=== PATIENT | female | born 1930 | race Caucasian/White ===

== ENCOUNTER 2017-12-04 00:16 | Inpatient (IN) | payer MEDICARE, OTHER ==
[~2017-12-04] VITALS: Ht 167.6 cm; Wt 79.0 kg
[2017-12-04] MEDS ORDERED: FLUT9.9S16 NS (00:45)
[2017-12-04] MEDS ORDERED: DULO60CA6 PO (00:45)
[2017-12-04] MEDS ORDERED: CHOL10003 PO (00:45)
[2017-12-04] MEDS ORDERED: ACET325T21 PO (00:45)
[2017-12-04] MEDS ORDERED: METF500T5 PO (00:45)
[2017-12-04] MEDS ORDERED: LISI-376 PO (00:45)
[2017-12-04] MEDS ORDERED: FAMO-63 PO (00:45)
[2017-12-04] MEDS ORDERED: DOCU250C8 PO (00:45)
[2017-12-04] MEDS ORDERED: CLOP75TA PO (00:45)
[2017-12-04] MEDS ORDERED: NEBI5TAB2 PO (00:45)
[2017-12-04] MEDS ORDERED: LIDO700A39 TP (00:45)
[2017-12-04] MEDS ORDERED: MULT1TAB52 PO (00:45)
[2017-12-04] MEDS ORDERED: CYAN10005 PO (00:45)
[2017-12-04] MEDS ORDERED: HYDR-971 PO (00:45)
[2017-12-04] MEDS ORDERED: INSU100I11 SQ (00:45)
[2017-12-04] MEDS ORDERED: PANT40TA5 PO (00:45)
[2017-12-04] MEDS ORDERED: PROP15DR40 EACHEYE (00:45)
[2017-12-04] MEDS ORDERED: MAGN2400 PO (00:45)
[2017-12-04] MEDS ORDERED: INSU100I13 SQ (00:45)
[2017-12-04] MEDS ORDERED: FAMO1TAB3 PO (00:45)
[2017-12-04] MEDS ORDERED: ATOR10TA PO (00:45)
[2017-12-04] MEDS ORDERED: FURO20TA3 PO (00:45)
[2017-12-04] MEDS ORDERED: MAG HYDROX/AL HYDROX/SIMETH 30 ML ORAL.SUSP PO PRN (02:45)
[2017-12-04] MEDS ORDERED: METHYL SALICYLATE/MENTHOL TOPICAL OINTMENT 29GM TUBE. TP PRN (02:45)
[2017-12-04] MEDS ORDERED: DEXTROSE 50% 25 GM / 50ML DISP.SYRIN. IV PRN (02:45)
[2017-12-04] MEDS ORDERED: MAGNESIUM HYDROXIDE 2,400 MG/30 ML ORAL.SUSP. PO PRN (02:45)
--- NOTE | 2017-12-04 02:59 | EKG ---
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
[2017-12-04] MEDS ORDERED: POLYVINYL ALCOHOL 1.4% OPHTH SOLUTION 15ML BOTTLE. OU PRN (03:00)
[2017-12-04] MEDS ORDERED: DOCUSATE SODIUM 100 MG CAPSULE PO PRN (03:00)
[2017-12-04 03:12] VITALS: BP 107/50
--- NOTE | 2017-12-04 03:32 | NUR ---
Admission Note with Justification for Admission to [facility] Patient admitted to [facility] for protective oversight for emergency stabilization of acute psychiatric crisis. Pt admitted from: [facility] ER Mode of arrival: EMS Accompanied By: EMS Precipitating behaviors that initiated intake and admission: Increased agitation/aggression, combative with staff at [facility] including hitting employee and throwing remotes at people, putting self on floor. Description of failure of out patient attempts at stabilization in previous setting list behavior and medication trials: Redirection, medication changes. Behaviors and assessment findings upon admission: Pt alert, oriented to self but not , current month but not year. Pt pleasantly confused, delusional- believes she arrived on the train. Pt has hematoma to scalp with 3 patrick intact from fall on 11/30, skin tear to Lt elbow- photographed per [facility]ISS protocol, multiple bruises noted. Physical assessment as charted. Pt toileted, gown and brief changed. Pt oriented to room/unit, bed low and locked, yellow non-slip socks on. Plan: Admit for protective oversight for adjustment and stabilization of medications, behaviors and mood. Intense treatment regimen including groups, medication adjustments, therapy, consistent regimen for ADL's, self care, and sleep hygiene. Daily monitoring by Inpatient staff, Psychiatry, and Medical Physician.
[2017-12-04 03:33] LABS: BILIRUBIN,URINE NEG (NEG); CLARITY,URINE CLEAR; COLOR,URINE STRAW; GLUCOSE,URINE 250 mg/dL (NEG)
[2017-12-04 03:34] LABS: BACTERIA,URINE FEW /HPF (0-FEW); NITRITE,URINE NEG (NEG); RBC,URINE 0 /HPF (0-2); SQUAMOUS EPITHELIAL CELL,UR MOD /LPF; UROBILINOGEN,URINE 0.2 mg/dL (0.2 mg/dL)
[2017-12-04 06:22] VITALS: BP 155/64
[2017-12-04 06:52] LABS: BASO # 0.1 x10^3/uL (0.0-0.2); BASO % 1 % (0-3); EOS % 0 % (0-3); HEMATOCRIT 34.1 % (36.0-47.0); HEMOGLOBIN 11.5 g/dL (12.0-15.5); LYMPH # 1.7 x10^3/uL (1.0-4.8); LYMPH % 17 % (24-48); MEAN CORPUSCULAR HEMOGLOBIN 33 pg (25-35); MEAN CORPUSCULAR HGB CONC 34 g/dL (31-37); MEAN CORPUSCULAR VOLUME 98 fL (79-100); MONO # 0.6 x10^3/uL (0.0-1.1); MONO % 7 % (0-9); NEUT # 7.4 x10^3uL (1.8-7.7); NEUT % 76 % (31-73); PLATELET COUNT 182 x10^3/uL (140-400); RED BLOOD COUNT 3.49 x10^6/uL (3.50-5.40); RED CELL DISTRIBUTION WIDTH 13.9 % (11.5-14.5); WHITE BLOOD COUNT 9.9 x10^3/uL (4.0-11.0)
[2017-12-04 07:03] LABS: ALBUMIN 2.4 g/dL (3.4-5.0); ALBUMIN/GLOBULIN RATIO 0.7 (1.0-1.7); CALCIUM 8.8 mg/dL (8.5-10.1); CREATININE 1.2 mg/dL (0.6-1.0); GFR 42.7; MAGNESIUM 1.5 mg/dL (1.8-2.4); POTASSIUM 4.3 mmol/L (3.5-5.1); TOTAL BILIRUBIN 0.3 mg/dL (0.2-1.0); TOTAL PROTEIN 5.8 g/dL (6.4-8.2)
--- NOTE | 2017-12-04 07:25 | NUR ---
ANTENNA RIGGER reported she offered pt a WC prior to breakfast bc pt stated "I am very unsteady and I am a fall risk. ANTENNA RIGGER offered pt an empty WC that was in the day room, pt stated "I'm not sitting in that thing." Staff walked with pt to dining room for breakfast.
[2017-12-04] MEDS ORDERED: FAMOTIDINE PO SCH (09:00)
[2017-12-04] MEDS ORDERED: LIDOCAINE (700MG/PATCH) PATCH. TD PRN (09:00)
[2017-12-04] MEDS ORDERED: MAGNESIUM HYDROXIDE PO SCH (09:00)
[2017-12-04] MEDS ORDERED: NEBIVOLOL HCL 5 MG PO SCH (09:00)
[2017-12-04] MEDS: METOPROLOL TART IMMED RELEASE 50 MG TABLET PO SCH ×2 (09:00→19:57)
[2017-12-04] MEDS ORDERED: [UNRECOGNIZED DRUG - OTHER] PO SCH (09:00)
[2017-12-04] MEDS ORDERED: CALCIUM CARBONATE PO SCH (09:00)
[2017-12-04] MEDS: INSULIN LISPRO 300 UNITS/3 ML INSULN.PEN. SQ SCH ×3 (09:24→17:30)
[2017-12-04] MEDS: metFORMIN 500 MG TABLET PO SCH ×2 (09:24→17:29)
[2017-12-04] MEDS: PANTOPRAZOLE 40 MG TABLET. PO SCH (09:24)
[2017-12-04] MEDS: FLUTICASONE 50MCG/NASAL SPRAY 16GM BOTTLE. NS SCH (09:26)
[2017-12-04] MEDS: DULoxetine HCL 60 MG CAPSULE.DR PO SCH (09:26)
[2017-12-04] MEDS: FAMOTIDINE 20 MG TABLET PO SCH (09:27)
[2017-12-04] MEDS: CLOPIDOGREL BISULFATE 75 MG TABLET PO SCH (09:27)
[2017-12-04] MEDS: FUROSEMIDE 20 MG TABLET PO SCH (09:27)
[2017-12-04] MEDS: CYANOCOBALAMIN (VITAMIN B-12) 1,000 MCG TABLET. PO SCH (09:28)
[2017-12-04] MEDS: LISINOPRIL 5 MG TABLET. PO SCH (09:28)
[2017-12-04] MEDS: CHOLECALCIFEROL (VITAMIN D3) 1,000 UNIT TABLET PO SCH (09:28)
[2017-12-04] MEDS: MULTIVITAMIN with MINERAL TABLET. PO SCH (09:28)
--- NOTE | 2017-12-04 11:17 | NUR ---
Behavior Intervention Response and Plan: BIRP Note: Behavior: Assumed Care of patient, patient located in Patient Room at shift change. Patient exhibited the following behavior Interactive, Calm, Cooperative. Brief assessment on rounds of vital signs, medication needs, lab studies, and pain. Treatment plan problems . Intervention: Patient assessed and the following interventions initiated safety checks 15 Minute Checks Cognitive Assessment , Head to toe Assessment , Medications. Response: After interactions and interventions patient responded in the following manner, Cooperative , Calm ,Social. Continue to assess behaviors and condition will continue to monitor throughout the shift as needed. Patient educated on ADL's, and hand hygiene. 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 Continue to assess patient for changes in above assessment. Monitor for medication needs, pain, and safety concerns. Hourly rounding performed to ensure safe environment.
[2017-12-04 11:19] LABS: THYROID STIM HORMONE (TSH) 1.461 uIU/mL (0.358-3.740)
--- NOTE | 2017-12-04 11:58 | NUR ---
SCRAPER HAND reported FSBS of 491. Dr. Granados paged with new order to give pt additional 9 units of insulin for a total of 14 units of insulin.
--- NOTE | 2017-12-04 12:05 | NUR ---
CRITICAL POWER TECHNICIAN reported pt fell and hit her head. Pt asked where the dining room was and CRITICAL POWER TECHNICIAN directed pt to the dining room. CRITICAL POWER TECHNICIAN watched pt turn to go to the dining room. CRITICAL POWER TECHNICIAN reported it appeared the pt was turning to go to the dining room and lost her balance and fell backward and hit her head on the corner of the wall. Staff called out for help. When nurse arrived nurse observed pt laying on the ground on her back calling out for help. When nurse assessed pt for injuries, Nurse observed a hematoma and blood coming from the back of the pts head. First aide given to the pt. VS: 150/91, 85, 100%, 20. Nursing garage supervisor called. During this time pt became combative with staff hitting, slapping and yelling out "ahhhhhhh! Help me!" "get away from me!" Pt was assisted to a chair and taken to the group room where pt continued to be combative-hitting, slapping, and screaming "ahhhhhh!" Laceration assessed and it was determined that pt would need to be seen in the ER. Pts daughter in law was here to visit and let onto the unit to help calm pt down which was successful. Dr. Granados, [facility] ER, Dr. Potts, and EMS called. When transferring on to EMS cot pt was delusional stating "they all hit me!" Pts daughter in law reassured pt that no one was trying to hurt her." Pt taken to [facility] ER via [facility] EMS accompanied by nursing garage supervisor and daughter in law.
[2017-12-04 12:07] LABS: T3 TOTAL 76 ng/dL (71-180); THYROXINE 5.9 ug/dL (4.5-12.0)
[2017-12-04] MEDS ORDERED: INSULIN LISPRO 300 UNITS/3 ML INSULN.PEN. SQ ONE (12:15)
--- NOTE | 2017-12-04 15:20 | NUR ---
Report received from Melissa. Pt returned from ER VIA EMS cart accompanied by EMS staff and ER medic. Pt is calm, cooperative, confused, and compliant at this time. Pt placed in bed with bed alarm. Pt moved from room 205 to room 212 for safety.
[2017-12-04 16:29] VITALS: BP 148/68
--- NOTE | 2017-12-04 19:45 | HP ---
ADMIT DATE: 12/04/2017 PSYCHIATRIC ADMISSION HISTORY/EVALUATION This note covers the elements not covered in my initial note of 12/04/2017. IDENTIFYING DATA: The patient is an 87-year-old female referred to us from [facility] Emergency Room where she presented from the [facility] in [place] on account of increased combative behavior, possible hallucinations and she was seeing her . She has been paranoid of staff having a relationship with her and believed the staff are out to get her. She has failed outpatient psychiatric interventions. The patient has had a significant change in her psychosocial environment. All her children have except one and she moved here from [place] after her 2 months ago. CHIEF COMPLAINT: "I don't know." The patient responded after I asked her circumstances prompting admission. HISTORY OF PRESENT ILLNESS: The patient has been increasingly depressed recently. She has been paranoid, psychotic as noted above. Symptoms worsening for the past 2 weeks. She had been on Xanax p.r.n. in the past and has had a fall and a head injury with patrick to the right side of her head. The patient also has had memory deficits, worsening confusion. No clear history of bipolar disorder or homicidal ideation. PAST PSYCHIATRIC HISTORY: As above. PAST MEDICAL HISTORY: Type 2 diabetes mellitus, non-Hodgkin's lymphoma, hypertension, status post CVA. PAST SURGICAL HISTORY: Tubal hysterectomy, total knee replacement. Accu-Cheks: At meals and at bedtime. CODE STATUS: DNR. DRUG ALLERGIES: PENICILLIN, AMOXIL, AUGMENTIN, INDERAL LA, COCONUT OIL, CONTRAST MEDIA, IODINE RELATED. DIET: Regular. Takes medications whole. CURRENT PSYCHOTROPICS: Cymbalta 60 mg a day. FAMILY HISTORY: Noncontributory. SOCIAL HISTORY: As noted above and she was moved to this area by her family from [place] about 2 months ago. No alcohol or drug abuse, physical, sexual or elder abuse history is noted. Not known to be a perpetrator. REACTION TO HOSPITALIZATION: The patient accepting of it, somewhat oblivious however. ASSETS: Supportive family, stable living back at the [facility]. MENTAL STATUS EXAM: The patient was seen individually evening of 12/04/2017. She is depressed, anxious, oriented to herself and at times to situation. Speech has some latency. Abstraction fair, computation impaired, language function intact. Memory is impaired. No active suicidal or homicidal ideation, but reliability poor due to her memory deficits. IMPRESSION: Major depressive disorder with psychotic features; major neurocognitive disorder, probably vascular with delusion, depression; anxiety disorder, unspecified; impulse control disorder, unspecified. Rest as above. PLAN: Admit to geropsychiatry unit at [facility]. I will see the patient daily individually from a psychiatric standpoint. Continue current psychotropics, reassess psychotropics gradually, especially given a history of falls. Since being in the hospital, the patient has had yet another fall when she turned around and got her legs crossed according to the camera feed observed by the nursing staff. She was evaluated for this in the ER. We will make further adjustments as clinically indicated. DANE CHERRY MD DR: WILLIAM/erica JOB#: [id number] / [id number]
[2017-12-04] MEDS: ATORVASTATIN CALCIUM 10 MG TABLET. PO SCH (19:58)
[2017-12-04] MEDS: ACETAMINOPHEN 325 MG TABLET PO PRN (20:04)
[2017-12-04] MEDS ORDERED: INSULIN GLARGINE 300 UNITS/3 ML INSULN.PEN. SQ SCH (21:00)
[2017-12-04 23:09] LABS: HEMOGLOBIN A1C 8.9 % (4.8-5.6)
--- NOTE | 2017-12-04 23:24 | PDOC ---
Exam Note: Zaid Note: Please also refer to the separate dictated note~for this date of service dictated separately.~Patient seen individually. Discussed the patient with Nursing staff reviewed the chart.~Reviewed interim history and current functioning. Reviewed vital signs,~Labs/ Radiology~and current medications noted below. Continue current treatment with the changes noted in the dictated addendum note Assessment: Vital Signs: Vital Signs Date Time Temp Pulse Resp B/P (MAP) Pulse Ox O2 Delivery O2 Flow Rate FiO2 12/04/17 19:57 90 148/68 12/04/17 16:29 98.4 16 97 12/04/17 03:12 Room Air I&O Intake and Output 12/04/17 07:00 Output Total 200 ml Balance -200 ml Output Urine Total 200 ml Labs: Laboratory Tests Test 12/04/17 02:50 12/04/17 06:25 12/04/17 07:59 12/04/17 11:50 Urine Collection Type Unknown Urine Color Straw Urine Clarity Clear Urine pH 6.5 Urine Specific [place] 1.010 Urine Protein 30 mg/dl (NEG-TRACE) Urine Glucose (UA) 250 mg/dL (NEG) Urine Ketones (Stick) Neg mg/dL (NEG) Urine Blood Neg (NEG) Urine Nitrite Neg (NEG) Urine Bilirubin Neg (NEG) Urine Urobilinogen Dipstick 0.2 mg/dL (0.2 mg/dL) Urine Leukocyte Esterase Neg (NEG) Urine RBC 0 /HPF (0-2) Urine WBC 1-4 /HPF (0-4) Urine Squamous Epithelial Cells Mod /LPF Urine Bacteria Few /HPF (0-FEW) White Blood Count 9.9 x10^3/uL (4.0-11.0) Red Blood Count 3.49 x10^6/uL (3.50-5.40) L Hemoglobin 11.5 g/dL (12.0-15.5) L Hematocrit 34.1 % (36.0-47.0) L Mean Corpuscular Volume 98 fL (79-100) Mean Corpuscular Hemoglobin 33 pg (25-35) Mean Corpuscular Hemoglobin Concent 34 g/dL (31-37) Red Cell Distribution Width 13.9 % (11.5-14.5) Platelet Count 182 x10^3/uL (140-400) Neutrophils (%) (Auto) 76 % (31-73) H Lymphocytes (%) (Auto) 17 % (24-48) L Monocytes (%) (Auto) 7 % (0-9) Eosinophils (%) (Auto) 0 % (0-3) Basophils (%) (Auto) 1 % (0-3) Neutrophils # (Auto) 7.4 x10^3uL (1.8-7.7) Lymphocytes # (Auto) 1.7 x10^3/uL (1.0-4.8) Monocytes # (Auto) 0.6 x10^3/uL (0.0-1.1) Eosinophils # (Auto) 0.0 x10^3/uL (0.0-0.7) Basophils # (Auto) 0.1 x10^3/uL (0.0-0.2) Sodium Level 141 mmol/L (136-145) Potassium Level 4.3 mmol/L (3.5-5.1) Chloride Level 104 mmol/L (98-107) Carbon Dioxide Level 31 mmol/L (21-32) Anion Gap 6 (6-14) Blood Urea Nitrogen 21 mg/dL (7-20) H Creatinine 1.2 mg/dL (0.6-1.0) H Estimated GFR (Cockcroft-Gault) 42.7 BUN/Creatinine Ratio 18 (6-20) Glucose Level 280 mg/dL (70-99) H Hemoglobin A1c 8.9 % (4.8-5.6) H Calcium Level 8.8 mg/dL (8.5-10.1) Magnesium Level 1.5 mg/dL (1.8-2.4) L Iron Level 26 ug/dL (50-170) L Total Iron Binding Capacity 208 ug/dL (250-450) L Iron Saturation 13 % (15-34) L Total Bilirubin 0.3 mg/dL (0.2-1.0) Aspartate Amino Transferase (AST) 16 U/L (15-37) Alanine Aminotransferase (ALT) 14 U/L (14-59) Alkaline Phosphatase 76 U/L (46-116) Total Protein 5.8 g/dL (6.4-8.2) L Albumin 2.4 g/dL (3.4-5.0) L Albumin/Globulin Ratio 0.7 (1.0-1.7) L Triglycerides Level 127 mg/dL (0-150) Cholesterol Level 149 mg/dL (0-200) LDL Cholesterol, Calculated 69 mg/dL (0-100) VLDL Cholesterol, Calculated 25 mg/dL (0-40) Non-HDL Cholesterol Calculated 94 mg/dL (0-129) HDL Cholesterol 55 mg/dL (40-60) Cholesterol/HDL Ratio 2.0 Thyroid Stimulating Hormone (TSH) 1.461 uIU/mL (0.358-3.740) Thyroxine (T4) 5.9 ug/dL (4.5-12.0) Total Triiodothyronine (TT3) 76 ng/dL (71-180) Rapid Plasma Reagin Pending Glucose (Fingerstick) 303 mg/dL (70-99) H 491 mg/dL (70-99) H Test 12/04/17 16:56 12/04/17 19:07 Glucose (Fingerstick) 208 mg/dL (70-99) H 272 mg/dL (70-99) H Current Medications: Meds: Current Medications Acetaminophen (Tylenol) 650 mg PRN Q6HRS PRN PO MILD PAIN / TEMP Last administered on 12/04/17at 20:04; Start 12/04/17 at 02:45 Multi-Ingredient Ointment (Analgesic [place]) 1 paige PRN QID PRN TP MUSCLE PAIN; Start 12/04/17 at 02:45 Al Hydroxide/Mg Hydroxide (Mylanta Plus Xs) 15 ml PRN AFTMEALHC PRN PO DYSPEPSIA; Start 12/04/17 at 02:45 Magnesium Hydroxide (Milk Of Magnesia) 2,400 mg PRN QHS PRN PO CONSTIPATION; Start 12/04/17 at 02:45 Duloxetine HCl (Cymbalta) 60 mg DAILY PO Last administered on 12/04/17at 09:26; Start 12/04/17 at 09:00 Dextrose 12.5 gm PRN Q15MIN PRN IV SEE COMMENTS; Start 12/04/17 at 02:45 Vitamin D (Vitamin D3) 1,000 unit DAILY PO Last administered on 12/04/17at 09:28 ; Start 12/04/17 at 09:00 Clopidogrel Bisulfate (Plavix) 75 mg DAILY PO Last administered on 12/04/17at 09 :27; Start 12/04/17 at 09:00 Cyanocobalamin (Vitamin B-12) 1,000 mcg DAILY PO Last administered on 09:28; Start 12/04/17 at 09:00 Furosemide (Lasix) 10 mg DAILY PO Last administered on 12/04/17 09:27; Start 12/04/17 at 09:00 Insulin Glargine (Lantus) 10 units QHS SQ Last administered on 12/04/17 20:00 ; Start 12/04/17 at 21:00 Insulin Human Lispro (HumaLOG) 5 units TIDWMEALS SQ Last administered on 17:30; Start 12/04/17 at 08:00 Lisinopril (Prinivil) 5 mg DAILY PO Last administered on 12/04/17 09:28; Start 12/04/17 at 09:00 Atorvastatin Calcium (Lipitor) 10 mg QHS PO Last administered on 12/04/17at 19: 58; Start 12/04/17 at 21:00 Docusate Sodium (Colace) 100 mg PRN DAILY PRN PO CONSTIPATION; Start 12/04/17 at 03:00 Famotidine (Pepcid) 20 mg DAILY PO Last administered on 12/04/17 09:27; Start 12/04/17 at 09:00 Non-Formulary Medication (Famotidine/Ca Carb/Mag Hydrox (Tums Dual Action Tablet Chew)) 1,000 mg DAILY PO ; Start 12/04/17 at 09:00; Status UNV Fluticasone Propionate (Flonase) 2 spray DAILY NS Last administered on at 09:26; Start 12/04/17 at 09:00 Acetaminophen/ Hydrocodone Bitart (Lortab 5/325) 1 tab PRN Q6HRS PRN PO PAIN; Start 12/04/17 at 03:00 Lidocaine (Lidoderm) 1 patch PRN DAILY PRN TD PAIN; Start 12/04/17 at 09:00 Metformin HCl (Glucophage) 500 mg BIDWMEALS PO Last administered on 12/04/17at 17:29; Start 12/04/17 at 08:00 Multivitamins/ Calcium (Thera-M Plus) 1 tab DAILY PO Last administered on at 09:28; Start 12/04/17 at 09:00 Non-Formulary Medication (Nebivolol Hcl (Bystolic)) 5 mg BID PO ; Start at 09:00; Stop 12/04/17 at 09:00; Status DC Pantoprazole Sodium (Protonix) 40 mg DAILYAC PO Last administered on 12/04/17at 09:24; Start 12/04/17 at 07:30 Artificial Tears (Artificial Tears) 1 drop PRN QID PRN OU DRY EYE; Start at 03:00 Metoprolol Tartrate (Lopressor) 50 mg BID PO Last administered on 12/04/17at 19: 57; Start 12/04/17 at 09:00 Insulin Human Lispro (HumaLOG) 9 units 1X ONCE SQ Last administered on at 12:24; Start 12/04/17 at 12:15; Stop 12/04/17 at 12:16; Status DC Active Scripts Active Reported Vitamin D3 (Cholecalciferol (Vitamin D3)) 1,000 Unit Tablet 1,000 Unit PO DAILY Clopidogrel (Clopidogrel Bisulfate) 75 Mg Tablet 75 Mg PO DAILY Flonase Sensimist (Fluticasone Furoate) 9.9 Ml [place].susp 2 Sprays NS DAILY Docusate Sodium 250 Mg Capsule 250 Mg PO PRN DAILY PRN Tums Dual Action Tablet Chew (Famotidine/Ca Carb/Mag Hydrox) 1 Each Tab.chew 1, 000 Mg PO DAILY Vitamin B-12 (Cyanocobalamin (Vitamin B-12)) 1,000 Mcg Tablet 1,000 Mcg PO DAILY Multivitamins (Multivitamin) 1 Each Tablet 1 Tab PO DAILY Furosemide 20 Mg Tablet 10 Mg PO DAILY Bystolic (Nebivolol Hcl) 5 Mg Tablet 5 Mg PO BID Zestril (Lisinopril) 5 Mg Tablet 5 Mg PO DAILY Acetaminophen 325 Mg Tablet 650 Mg PO PRN Q8HRS PRN Lidocaine 1 Each Adh..patch 1 Patch TP PRN DAILY PRN [place] 5-325 Tablet (Hydrocodone Bit/Acetaminophen) 1 Each Tablet 1 Tab PO PRN Q6HRS PRN Lipitor (Atorvastatin Calcium) 10 Mg Tablet 10 Mg PO QHS Lantus Solostar (Insulin Glargine,Hum.rec.anlog) 100 Unit/1 Ml Insuln.pen 10 Unit SQ QHS Pepcid (Famotidine) 20 Mg Tablet 20 Mg PO DAILY Pantoprazole Sodium 40 Mg Tablet.dr 40 Mg PO DAILY Milk Of Magnesia (Magnesium Hydroxide) 2,400 Mg/10 Ml Oral.susp 10 Ml PO PRN DAILY PRN Systane 0.3-0.4% Eye Drops (Propylene Glycol/Peg 400) 15 Ml Drops 1 Drop EACHEYE QID PRN Metformin Hcl 500 Mg Tablet 500 Mg PO BIDWMEALS Cymbalta (Duloxetine Hcl) 60 Mg Capsule.dr 60 Mg PO DAILY Humalog (Insulin Lispro) 100 Unit/1 Ml Insuln.pen 5 Unit SQ TIDWMEALS I have reviewed the current psychotropics carefully including drug interactions. Risk benefit ratio favors no change other than as noted in my dictated progress note. Diagnosis: Problems: (1) Anxiety disorder (2) Dementia in Alzheimer's disease with delusions (3) Dementia in Alzheimer's disease with depression (4) Dementia, vascular, with delusions (5) Dementia, vascular, with depression (6) Impulse control disorder DANE CHERRY MD December 04, 2017 23:24
--- NOTE | 2017-12-05 03:08 | NUR ---
Behavior Intervention Response and Plan: BIRP Note: Behavior: Assumed Care of patient, patient located in Day Room at shift change. Patient exhibited the following behavior Disorganized, Resistive, Restless. Brief assessment on rounds of vital signs, medication needs, lab studies, and pain. Treatment plan problems 1 and 2. Intervention: Patient assessed and the following interventions initiated safety checks 15 Minute Checks Cognitive Assessment , Head to toe Assessment , Medications. Response: After interactions and interventions patient responded in the following manner, Calm , Disorganized ,Compliant. Continue to assess behaviors and condition will continue to monitor throughout the shift as needed. Patient educated on ADL's, and hand hygiene. 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 Continue to assess patient for changes in above assessment. Monitor for medication needs, pain, and safety concerns. Hourly rounding performed to ensure safe environment.
[2017-12-05 06:21] VITALS: BP 114/69
[2017-12-05] MEDS: INSULIN LISPRO 300 UNITS/3 ML INSULN.PEN. SQ SCH ×3 (08:13→17:21)
[2017-12-05] MEDS: PANTOPRAZOLE 40 MG TABLET. PO SCH (08:23)
[2017-12-05] MEDS: FLUTICASONE 50MCG/NASAL SPRAY 16GM BOTTLE. NS SCH (08:32)
[2017-12-05] MEDS: DULoxetine HCL 60 MG CAPSULE.DR PO SCH (08:32)
[2017-12-05] MEDS: metFORMIN 500 MG TABLET PO SCH ×2 (08:32→17:20)
[2017-12-05] MEDS: CYANOCOBALAMIN (VITAMIN B-12) 1,000 MCG TABLET. PO SCH (08:33)
[2017-12-05] MEDS: FUROSEMIDE 20 MG TABLET PO SCH (08:33)
[2017-12-05] MEDS: CHOLECALCIFEROL (VITAMIN D3) 1,000 UNIT TABLET PO SCH (08:33)
[2017-12-05] MEDS: CLOPIDOGREL BISULFATE 75 MG TABLET PO SCH (08:33)
[2017-12-05] MEDS: MULTIVITAMIN with MINERAL TABLET. PO SCH (08:33)
[2017-12-05] MEDS: FAMOTIDINE 20 MG TABLET PO SCH (08:33)
[2017-12-05] MEDS: METOPROLOL TART IMMED RELEASE 50 MG TABLET PO SCH ×2 (09:00→19:33)
--- NOTE | 2017-12-05 10:33 | NUR ---
Behavior Intervention Response and Plan: BIRP Note: Behavior: Assumed Care of patient, patient located in Patient Room at shift change. Patient exhibited the following behavior Interactive, Calm, Cooperative, happy, confused. Brief assessment on rounds of vital signs, medication needs, lab studies, and pain. Treatment plan problems . Intervention: Patient assessed and the following interventions initiated safety checks 15 Minute Checks Cognitive Assessment , Head to toe Assessment , Medications. Response: After interactions and interventions patient responded in the following manner, Cooperative, Calm, Social, happy. Continue to assess behaviors and condition will continue to monitor throughout the shift as needed. Patient educated on ADL's, and hand hygiene. 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 Continue to assess patient for changes in above assessment. Monitor for medication needs, pain, and safety concerns. Hourly rounding performed to ensure safe environment.
[2017-12-05 12:12] VITALS: BP 131/71
[2017-12-05] MEDS: LISINOPRIL 5 MG TABLET. PO SCH (12:15)
[2017-12-05 16:48] VITALS: BP 154/89
--- NOTE | 2017-12-05 18:18 | NUR ---
After dinner pt was delusional stating she had to go to a certain area of the unit and get her (he has been for about 1 year). When attempting to redirect pt, pt attempted to stand and was resistive with redirection. Dr. Potts paged and gave an order for zyprexa zydis 2.5mg q 2 hours PRN psychosis/agitation. Not to exceed 10mg in 24 hours.
[2017-12-05] MEDS: ATORVASTATIN CALCIUM 10 MG TABLET. PO SCH (19:33)
--- NOTE | 2017-12-05 20:58 | PDOC ---
Exam Note: Zaid Note: Please also refer to the separate dictated note~for this date of service dictated separately.~Patient seen individually. Discussed the patient with Nursing staff reviewed the chart.~Reviewed interim history and current functioning. Reviewed vital signs,~Labs/ Radiology~and current medications noted below. Continue current treatment with the changes noted in the dictated addendum note Assessment: Vital Signs: Vital Signs Date Time Temp Pulse Resp B/P (MAP) Pulse Ox O2 Delivery O2 Flow Rate FiO2 12/05/17 19:33 96 154/89 12/05/17 16:48 97.3 18 97 12/04/17 03:12 Room Air I&O Intake and Output 12/05/17 07:00 Intake Total 840 ml Balance 840 ml Intake Oral 840 ml Labs: Laboratory Tests Test 12/05/17 06:16 12/05/17 07:19 12/05/17 11:21 12/05/17 16:09 Glucose (Fingerstick) 192 mg/dL (70-99) H 212 mg/dL (70-99) H 236 mg/dL (70-99) H 268 mg/dL (70-99) H Test 12/05/17 19:45 Glucose (Fingerstick) 194 mg/dL (70-99) H Current Medications: Meds: Current Medications Acetaminophen (Tylenol) 650 mg PRN Q6HRS PRN PO MILD PAIN / TEMP Last administered on 12/04/17at 20:04; Start 12/04/17 at 02:45 Multi-Ingredient Ointment (Analgesic [place]) 1 paige PRN QID PRN TP MUSCLE PAIN; Start 12/04/17 at 02:45 Al Hydroxide/Mg Hydroxide (Mylanta Plus Xs) 15 ml PRN AFTMEALHC PRN PO DYSPEPSIA; Start 12/04/17 at 02:45 Magnesium Hydroxide (Milk Of Magnesia) 2,400 mg PRN QHS PRN PO CONSTIPATION; Start 12/04/17 at 02:45 Duloxetine HCl (Cymbalta) 60 mg DAILY PO Last administered on 12/05/17at 08:32; Start 12/04/17 at 09:00 Dextrose 12.5 gm PRN Q15MIN PRN IV SEE COMMENTS; Start 12/04/17 at 02:45 Vitamin D (Vitamin D3) 1,000 unit DAILY PO Last administered on 12/05/17 08:33 ; Start 12/04/17 at 09:00 Clopidogrel Bisulfate (Plavix) 75 mg DAILY PO Last administered on 12/05/17 08 :33; Start 12/04/17 at 09:00 Cyanocobalamin (Vitamin B-12) 1,000 mcg DAILY PO Last administered on 08:33; Start 12/04/17 at 09:00 Furosemide (Lasix) 10 mg DAILY PO Last administered on 12/05/17 08:33; Start 12/04/17 at 09:00 Insulin Glargine (Lantus) 10 units QHS SQ Last administered on 12/04/17 20:00 ; Start 12/04/17 at 21:00; Stop 12/05/17 at 15:57; Status DC Insulin Human Lispro (HumaLOG) 5 units TIDWMEALS SQ Last administered on 12:06; Start 12/04/17 at 08:00; Stop 12/05/17 at 15:57; Status DC Lisinopril (Prinivil) 5 mg DAILY PO Last administered on 12/05/17 12:15; Start 12/04/17 at 09:00 Atorvastatin Calcium (Lipitor) 10 mg QHS PO Last administered on 12/05/17 19: 33; Start 12/04/17 at 21:00 Docusate Sodium (Colace) 100 mg PRN DAILY PRN PO CONSTIPATION; Start 12/04/17 at 03:00 Famotidine (Pepcid) 20 mg DAILY PO Last administered on 12/05/17 08:33; Start 12/04/17 at 09:00 Non-Formulary Medication (Famotidine/Ca Carb/Mag Hydrox (Tums Dual Action Tablet Chew)) 1,000 mg DAILY PO ; Start 12/04/17 at 09:00; Status UNV Fluticasone Propionate (Flonase) 2 spray DAILY NS Last administered on at 08:32; Start 12/04/17 at 09:00 Acetaminophen/ Hydrocodone Bitart (Lortab 5/325) 1 tab PRN Q6HRS PRN PO PAIN; Start 12/04/17 at 03:00 Lidocaine (Lidoderm) 1 patch PRN DAILY PRN TD PAIN; Start 12/04/17 at 09:00 Metformin HCl (Glucophage) 500 mg BIDWMEALS PO Last administered on 12/05/17at 17:20; Start 12/04/17 at 08:00 Multivitamins/ Calcium (Thera-M Plus) 1 tab DAILY PO Last administered on at 08:33; Start 12/04/17 at 09:00 Non-Formulary Medication (Nebivolol Hcl (Bystolic)) 5 mg BID PO ; Start at 09:00; Stop 12/04/17 at 09:00; Status DC Pantoprazole Sodium (Protonix) 40 mg DAILYAC PO Last administered on 12/05/17at 08:23; Start 12/04/17 at 07:30 Artificial Tears (Artificial Tears) 1 drop PRN QID PRN OU DRY EYE; Start at 03:00 Metoprolol Tartrate (Lopressor) 50 mg BID PO Last administered on 12/05/17at 19: 33; Start 12/04/17 at 09:00 Insulin Human Lispro (HumaLOG) 9 units 1X ONCE SQ Last administered on at 12:24; Start 12/04/17 at 12:15; Stop 12/04/17 at 12:16; Status DC Insulin Glargine (Lantus) 15 units QHS SQ ; Start 12/05/17 at 21:00 Insulin Human Lispro (HumaLOG) 7 units TIDWMEALS SQ Last administered on at 17:21; Start 12/05/17 at 17:00 Olanzapine (ZyPREXA ZYDIS) 2.5 mg PRN Q2HR PRN PO PSYCHOSIS Last administered on 12/05/17at 18:15; Start 12/05/17 at 18:15 Active Scripts Active Reported Vitamin D3 (Cholecalciferol (Vitamin D3)) 1,000 Unit Tablet 1,000 Unit PO DAILY Clopidogrel (Clopidogrel Bisulfate) 75 Mg Tablet 75 Mg PO DAILY Flonase Sensimist (Fluticasone Furoate) 9.9 Ml [place].susp 2 Sprays NS DAILY Docusate Sodium 250 Mg Capsule 250 Mg PO PRN DAILY PRN Tums Dual Action Tablet Chew (Famotidine/Ca Carb/Mag Hydrox) 1 Each Tab.chew 1, 000 Mg PO DAILY Vitamin B-12 (Cyanocobalamin (Vitamin B-12)) 1,000 Mcg Tablet 1,000 Mcg PO DAILY Multivitamins (Multivitamin) 1 Each Tablet 1 Tab PO DAILY Furosemide 20 Mg Tablet 10 Mg PO DAILY Bystolic (Nebivolol Hcl) 5 Mg Tablet 5 Mg PO BID Zestril (Lisinopril) 5 Mg Tablet 5 Mg PO DAILY Acetaminophen 325 Mg Tablet 650 Mg PO PRN Q8HRS PRN Lidocaine 1 Each Adh..patch 1 Patch TP PRN DAILY PRN [place] 5-325 Tablet (Hydrocodone Bit/Acetaminophen) 1 Each Tablet 1 Tab PO PRN Q6HRS PRN Lipitor (Atorvastatin Calcium) 10 Mg Tablet 10 Mg PO QHS Lantus Solostar (Insulin Glargine,Hum.rec.anlog) 100 Unit/1 Ml Insuln.pen 10 Unit SQ QHS Pepcid (Famotidine) 20 Mg Tablet 20 Mg PO DAILY Pantoprazole Sodium 40 Mg Tablet.dr 40 Mg PO DAILY Milk Of Magnesia (Magnesium Hydroxide) 2,400 Mg/10 Ml Oral.susp 10 Ml PO PRN DAILY PRN Systane 0.3-0.4% Eye Drops (Propylene Glycol/Peg 400) 15 Ml Drops 1 Drop EACHEYE QID PRN Metformin Hcl 500 Mg Tablet 500 Mg PO BIDWMEALS Cymbalta (Duloxetine Hcl) 60 Mg Capsule.dr 60 Mg PO DAILY Humalog (Insulin Lispro) 100 Unit/1 Ml Insuln.pen 5 Unit SQ TIDWMEALS I have reviewed the current psychotropics carefully including drug interactions. Risk benefit ratio favors no change other than as noted in my dictated progress note. Diagnosis: Problems: (1) Anxiety disorder (2) Dementia in Alzheimer's disease with delusions (3) Dementia in Alzheimer's disease with depression (4) Dementia, vascular, with delusions (5) Dementia, vascular, with depression (6) Impulse control disorder DANE CHERRY MD December 05, 2017 20:58
[2017-12-05] MEDS: INSULIN GLARGINE 300 UNITS/3 ML INSULN.PEN. SQ SCH (21:12)
--- NOTE | 2017-12-06 00:03 | NUR ---
Behavior Intervention Response and Plan: BIRP Note: Behavior: Assumed Care of patient, patient located in Day Room at shift change. Patient exhibited the following behavior Calm, Disorganized, Social. Brief assessment on rounds of vital signs, medication needs, lab studies, and pain. Treatment plan problems 1 and 2. Intervention: Patient assessed and the following interventions initiated safety checks 15 Minute Checks Cognitive Assessment , Head to toe Assessment , Medications. Response: After interactions and interventions patient responded in the following manner, Calm , Compliant ,Cooperative. Continue to assess behaviors and condition will continue to monitor throughout the shift as needed. Patient educated on ADL's, and hand hygiene. 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 Continue to assess patient for changes in above assessment. Monitor for medication needs, pain, and safety concerns. Hourly rounding performed to ensure safe environment.
[2017-12-06] MEDS: HYDROcodone/APAP 5/325MG 1 TAB TABLET PO PRN (01:11)
--- NOTE | 2017-12-06 01:16 | NUR ---
Pt c/o pain at back of head from laceration, reports "it hurts really bad". PRN Lortab administered as ordered.
[2017-12-06 06:33] VITALS: BP 163/80
[2017-12-06] MEDS: metFORMIN 500 MG TABLET PO SCH ×2 (09:17→17:47)
[2017-12-06] MEDS: PANTOPRAZOLE 40 MG TABLET. PO SCH (09:17)
[2017-12-06] MEDS: CHOLECALCIFEROL (VITAMIN D3) 1,000 UNIT TABLET PO SCH (09:17)
[2017-12-06] MEDS: CYANOCOBALAMIN (VITAMIN B-12) 1,000 MCG TABLET. PO SCH (09:17)
[2017-12-06] MEDS: CLOPIDOGREL BISULFATE 75 MG TABLET PO SCH (09:17)
[2017-12-06] MEDS: DULoxetine HCL 60 MG CAPSULE.DR PO SCH (09:17)
[2017-12-06] MEDS: MULTIVITAMIN with MINERAL TABLET. PO SCH (09:17)
[2017-12-06] MEDS: FAMOTIDINE 20 MG TABLET PO SCH (09:17)
[2017-12-06] MEDS: METOPROLOL TART IMMED RELEASE 50 MG TABLET PO SCH ×2 (09:17→21:34)
[2017-12-06] MEDS: LISINOPRIL 5 MG TABLET. PO SCH (09:17)
[2017-12-06] MEDS: FUROSEMIDE 20 MG TABLET PO SCH (09:18)
[2017-12-06] MEDS: busPIRone 5 MG TABLET. PO SCH ×2 (09:19→21:30)
[2017-12-06] MEDS: FLUTICASONE 50MCG/NASAL SPRAY 16GM BOTTLE. NS SCH (09:19)
[2017-12-06] MEDS: INSULIN LISPRO 300 UNITS/3 ML INSULN.PEN. SQ SCH ×4 (09:21→18:40)
--- NOTE | 2017-12-06 11:30 | NUR ---
Behavior Intervention Response and Plan: BIRP Note: Behavior: Assumed Care of patient, patient located in Dining Room at shift change. Patient exhibited the following behavior Calm, Disorganized, Cooperative. Brief assessment on rounds of vital signs, medication needs, lab studies, and pain. Treatment plan problems 1-2. Intervention: Patient assessed and the following interventions initiated safety checks 15 Minute Checks Personal Alarm in place , Cognitive Assessment , Head to toe Assessment. Response: After interactions and interventions patient responded in the following manner, Interactive , Disorganized ,Compliant. Continue to assess behaviors and condition will continue to monitor throughout the shift as needed. Patient educated on ADL's, and hand hygiene. Plan: Continue to monitor Master Treatment Plan for patient's progress toward short term goals of Decreased Anxiety, Decreased Anxiety, jail goals to return to previous living setting vs placement. Continue to assess patient for changes in above assessment. Monitor for medication needs, pain, and safety concerns. Hourly rounding performed to ensure safe environment.
[2017-12-06 15:44] VITALS: BP 127/69
--- NOTE | 2017-12-06 17:48 | NUR ---
Nursing Note: Pt yelling out in dining room then screaming in hallway, calling out for her father, Unable to redirect pt. Pt also trying to stand from wheelchair, lashing out at staff physically. PRN given. Addendum: 12/06/17 at 1846 by ELLEN OROZCO RN Pt refused evening Novolog, attempting to hit and scratch this RN.
--- NOTE | 2017-12-06 20:40 | PDOC ---
Exam Note: Zaid Note: Please also refer to the separate dictated note~for this date of service dictated separately.~Patient seen individually. Discussed the patient with Nursing staff reviewed the chart.~Reviewed interim history and current functioning. Reviewed vital signs,~Labs/ Radiology~and current medications noted below. Continue current treatment with the changes noted in the dictated addendum note Assessment: Vital Signs: Vital Signs Date Time Temp Pulse Resp B/P (MAP) Pulse Ox O2 Delivery O2 Flow Rate FiO2 12/06/17 15:44 97.7 63 16 127/69 (88) 98 12/06/17 02:11 Room Air I&O Intake and Output 12/06/17 07:00 Intake Total 900 ml Balance 900 ml Intake Oral 900 ml # Voids 1 # Bowel Movements 1 Labs: Laboratory Tests Test 12/06/17 07:19 12/06/17 11:35 12/06/17 17:02 12/06/17 19:19 Glucose (Fingerstick) 191 mg/dL (70-99) H 265 mg/dL (70-99) H 289 mg/dL (70-99) H 336 mg/dL (70-99) H Current Medications: Meds: Current Medications Acetaminophen (Tylenol) 650 mg PRN Q6HRS PRN PO MILD PAIN / TEMP Last administered on 12/04/17at 20:04; Start 12/04/17 at 02:45 Multi-Ingredient Ointment (Analgesic [place]) 1 paige PRN QID PRN TP MUSCLE PAIN; Start 12/04/17 at 02:45 Al Hydroxide/Mg Hydroxide (Mylanta Plus Xs) 15 ml PRN AFTMEALHC PRN PO DYSPEPSIA; Start 12/04/17 at 02:45 Magnesium Hydroxide (Milk Of Magnesia) 2,400 mg PRN QHS PRN PO CONSTIPATION; Start 12/04/17 at 02:45 Duloxetine HCl (Cymbalta) 60 mg DAILY PO Last administered on 12/06/17at 09:17; Start 12/04/17 at 09:00 Dextrose 12.5 gm PRN Q15MIN PRN IV SEE COMMENTS; Start 12/04/17 at 02:45 Vitamin D (Vitamin D3) 1,000 unit DAILY PO Last administered on 12/06/17at 09:17 ; Start 12/04/17 at 09:00 Clopidogrel Bisulfate (Plavix) 75 mg DAILY PO Last administered on 12/06/17 09 :17; Start 12/04/17 at 09:00 Cyanocobalamin (Vitamin B-12) 1,000 mcg DAILY PO Last administered on 09:17; Start 12/04/17 at 09:00 Furosemide (Lasix) 10 mg DAILY PO Last administered on 12/06/17 09:18; Start 12/04/17 at 09:00 Insulin Glargine (Lantus) 10 units QHS SQ Last administered on 12/04/17at 20:00 ; Start 12/04/17 at 21:00; Stop 12/05/17 at 15:57; Status DC Insulin Human Lispro (HumaLOG) 5 units TIDWMEALS SQ Last administered on 12:06; Start 12/04/17 at 08:00; Stop 12/05/17 at 15:57; Status DC Lisinopril (Prinivil) 5 mg DAILY PO Last administered on 12/06/17 09:17; Start 12/04/17 at 09:00 Atorvastatin Calcium (Lipitor) 10 mg QHS PO Last administered on 12/05/17 19: 33; Start 12/04/17 at 21:00 Docusate Sodium (Colace) 100 mg PRN DAILY PRN PO CONSTIPATION; Start 12/04/17 at 03:00 Famotidine (Pepcid) 20 mg DAILY PO Last administered on 12/06/17 09:17; Start 12/04/17 at 09:00 Non-Formulary Medication (Famotidine/Ca Carb/Mag Hydrox (Tums Dual Action Tablet Chew)) 1,000 mg DAILY PO ; Start 12/04/17 at 09:00; Status UNV Fluticasone Propionate (Flonase) 2 spray DAILY NS Last administered on 09:19; Start 12/04/17 at 09:00 Acetaminophen/ Hydrocodone Bitart (Lortab 5/325) 1 tab PRN Q6HRS PRN PO PAIN Last administered on 12/06/17at 01:11; Start 12/04/17 at 03:00 Lidocaine (Lidoderm) 1 patch PRN DAILY PRN TD PAIN; Start 12/04/17 at 09:00 Metformin HCl (Glucophage) 500 mg BIDWMEALS PO Last administered on 12/06/17at 17:47; Start 12/04/17 at 08:00 Multivitamins/ Calcium (Thera-M Plus) 1 tab DAILY PO Last administered on 09:17; Start 12/04/17 at 09:00 Non-Formulary Medication (Nebivolol Hcl (Bystolic)) 5 mg BID PO ; Start at 09:00; Stop 12/04/17 at 09:00; Status DC Pantoprazole Sodium (Protonix) 40 mg DAILYAC PO Last administered on 12/06/17 09:17; Start 12/04/17 at 07:30 Artificial Tears (Artificial Tears) 1 drop PRN QID PRN OU DRY EYE; Start at 03:00 Metoprolol Tartrate (Lopressor) 50 mg BID PO Last administered on 12/06/17 09: 17; Start 12/04/17 at 09:00 Insulin Human Lispro (HumaLOG) 9 units 1X ONCE SQ Last administered on at 12:24; Start 12/04/17 at 12:15; Stop 12/04/17 at 12:16; Status DC Insulin Glargine (Lantus) 15 units QHS SQ Last administered on 12/05/17at 21:12 ; Start 12/05/17 at 21:00 Insulin Human Lispro (HumaLOG) 7 units TIDWMEALS SQ Last administered on at 12:52; Start 12/05/17 at 17:00 Olanzapine (ZyPREXA ZYDIS) 2.5 mg PRN Q2HR PRN PO PSYCHOSIS Last administered on 12/06/17at 17:46; Start 12/05/17 at 18:15 Buspirone HCl (Buspar) 5 mg BID PO Last administered on 12/06/17 09:19; Start 12/06/17 at 09:00 Active Scripts Active Reported Vitamin D3 (Cholecalciferol (Vitamin D3)) 1,000 Unit Tablet 1,000 Unit PO DAILY Clopidogrel (Clopidogrel Bisulfate) 75 Mg Tablet 75 Mg PO DAILY Flonase Sensimist (Fluticasone Furoate) 9.9 Ml [place].susp 2 Sprays NS DAILY Docusate Sodium 250 Mg Capsule 250 Mg PO PRN DAILY PRN Tums Dual Action Tablet Chew (Famotidine/Ca Carb/Mag Hydrox) 1 Each Tab.chew 1, 000 Mg PO DAILY Vitamin B-12 (Cyanocobalamin (Vitamin B-12)) 1,000 Mcg Tablet 1,000 Mcg PO DAILY Multivitamins (Multivitamin) 1 Each Tablet 1 Tab PO DAILY Furosemide 20 Mg Tablet 10 Mg PO DAILY Bystolic (Nebivolol Hcl) 5 Mg Tablet 5 Mg PO BID Zestril (Lisinopril) 5 Mg Tablet 5 Mg PO DAILY Acetaminophen 325 Mg Tablet 650 Mg PO PRN Q8HRS PRN Lidocaine 1 Each Adh..patch 1 Patch TP PRN DAILY PRN [place] 5-325 Tablet (Hydrocodone Bit/Acetaminophen) 1 Each Tablet 1 Tab PO PRN Q6HRS PRN Lipitor (Atorvastatin Calcium) 10 Mg Tablet 10 Mg PO QHS Lantus Solostar (Insulin Glargine,Hum.rec.anlog) 100 Unit/1 Ml Insuln.pen 10 Unit SQ QHS Pepcid (Famotidine) 20 Mg Tablet 20 Mg PO DAILY Pantoprazole Sodium 40 Mg Tablet.dr 40 Mg PO DAILY Milk Of Magnesia (Magnesium Hydroxide) 2,400 Mg/10 Ml Oral.susp 10 Ml PO PRN DAILY PRN Systane 0.3-0.4% Eye Drops (Propylene Glycol/Peg 400) 15 Ml Drops 1 Drop EACHEYE QID PRN Metformin Hcl 500 Mg Tablet 500 Mg PO BIDWMEALS Cymbalta (Duloxetine Hcl) 60 Mg Capsule.dr 60 Mg PO DAILY Humalog (Insulin Lispro) 100 Unit/1 Ml Insuln.pen 5 Unit SQ TIDWMEALS I have reviewed the current psychotropics carefully including drug interactions. Risk benefit ratio favors no change other than as noted in my dictated progress note. Diagnosis: Problems: (1) Anxiety disorder (2) Dementia in Alzheimer's disease with delusions (3) Dementia in Alzheimer's disease with depression (4) Dementia, vascular, with delusions (5) Dementia, vascular, with depression (6) Impulse control disorder DANE CHERRY MD December 06, 2017 20:40
[2017-12-06] MEDS: ATORVASTATIN CALCIUM 10 MG TABLET. PO SCH (21:30)
[2017-12-06] MEDS: INSULIN GLARGINE 300 UNITS/3 ML INSULN.PEN. SQ SCH (21:33)
--- NOTE | 2017-12-06 23:53 | NUR ---
Nursing Note Patient in day room at beginning of shift. Patient restless and exit seeking at beginning of shift. Patient compliant with Medications and assessment. Patient alert and oriented to self only. Patient calm and cooperative and no longer exit seeking and has calmed down significantly after medication pass/assessment. Patient currently in bed resting.
--- NOTE | 2017-12-07 01:17 | CONS ---
DATE OF CONSULTATION: 12/05/2017 REASON FOR CONSULTATION: Medical management. HISTORY OF PRESENT ILLNESS: The patient is an 87-year-old female patient referred from [facility] Emergency Room where she presented from the [facility] in [facility] on account of increased combative behavior, possible hallucination. She was seeing her . She has been paranoid of staff having a relationship with her and believes the staff are out to get her. She has failed outpatient psychiatric intervention. The patient has had a significant change in her psychosocial environment. All her children have except one and she moved here from [place] after her about 2 months ago. On questioning her, she was extremely confused, but pleasantly so. PAST MEDICAL HISTORY: Significant for type 2 diabetes, non-Hodgkin lymphoma, hypertension. She is status post CVA. PAST SURGICAL HISTORY: Significant for tubal ligation, hysterectomy and total knee replacement. PAST PSYCHIATRIC HISTORY: Significant for major depressive disorder with psychotic feature, major neurocognitive disorder; probably vascular with delusion; depression, anxiety disorder; unspecified. ALLERGIES: SHE IS ALLERGIC TO PENICILLIN, AMOXICILLIN, AUGMENTIN, INDERAL LA, COCONUT OIL, CONTRAST MEDIA IODINE-RELATED. FAMILY HISTORY: Noncontributory. SOCIAL HISTORY: She moved to this area by her family from [place] about 2 months ago. She does not drink alcohol or recreational drugs. She is . REVIEW OF SYSTEMS: As per history of present illness. PHYSICAL EXAMINATION GENERAL: When I examined her, she was sitting comfortably in her chair, attempting to color using her sweet cone as a pencil. She was slightly pale with multiple bruises all over her both upper extremities, right side of the neck, and also left thigh. She was pale, no jaundice or cyanosis. No lymphadenopathy, no thyromegaly. No jugular venous distension. No lower limb edema. VITAL SIGNS: Her heart rate was 84, blood pressure 114/69, temperature was 98, respiratory rate was 18 and oxygen saturation was 96%. HEAD, EYES, EARS, NOSE, AND THROAT: Showed normocephalic, atraumatic. NECK: Supple. HEART: Showed normal first and second sounds. No gallop, rub or murmur. CHEST: Clear to auscultation. No crepitation or rhonchi. ABDOMEN: Distended, soft, nontender. NEUROLOGIC: She is a very pleasantly confused, but without any obvious lateralizing sign. All cranial nerves intact. EXTREMITIES: She moves extremities without difficulty. She is mostly wheelchair bound. She is able to walk with assistance. LABORATORY WORK: As of yesterday showed her white cell count to be 9900, hemoglobin 11.5, hematocrit 34, MCV 98 and platelet count of 182,000. Her chemistry showed a serum sodium 141, potassium 4.3, chloride 104, bicarbonate 31, anion gap of 6, BUN 21, creatinine 1.2, estimated GFR was 43 mL per minute. Her glucose was 280, calcium was 8.8, magnesium was 1.5. Total bilirubin, AST, ALT, alkaline phosphatase were normal. Total protein 5.8, albumin 2.4. Her triglycerides were 127. Total cholesterol 149, LDL was 69, VLDL was 25, HDL cholesterol was 55 and the ratio was 2. TSH 1.461, total T4 was 5.9, total T3 was 76. Her hemoglobin A1c was 8.9. Her serum iron 26, TIBC was 108 and percent saturation was 13. Her blood sugar is not really well controlled. Her urinalysis showed the urine was straw colored, clear. The pH was 6.5, specific gravity of 1.010, small amount of protein, large amount of glucose, negative for ketones, blood, nitrite and leukocyte esterase. There was 0 rbc's, 1-4 wbc's and very few bacteria. Her RPR is still pending. She apparently fell yesterday and hit her shoulder and head. Her shoulder x-ray showed that no displaced fracture, no acute osseous or articular abnormality. She has mild hypertrophic changes of the acromioclavicular joint and a CT scan of the brain showed that the patient has no acute intracranial process, mild cerebral volume loss, mild chronic small vessel ischemic disease, small right basal ganglia, remote lacunar-type infarct, left parietal occipital scalp, soft tissue swelling and subcutaneous air. She has also right parietal scalp small hematoma and skin patrick. She has chronic-appearing right maxillary sinusitis. In summary, this is an 87-year-old female patient who was admitted from [facility] on account of increased combative behavior with possible hallucination. She was seeing her . She has been also paranoid of staff having a relationship with her and believed the staff are out to get her. She has multiple medical problems including type 2 diabetes, hypertension, hyperlipidemia. All her vital signs and lab work seems to be within acceptable range. Her blood sugar is not optimally controlled as her blood sugar is mostly in the 200-300, she is on 10 units of insulin before meals and she probably would benefit from increasing her Humalog insulin and my plan is to increase her Lantus insulin to 15 units and Humalog 7 units and adjust gradually as needed. Thank you, Dr. Potts for allowing me to participate in the care of this patient. DIETER RODRIGUEZ MD DR: RASHIDA/erica JOB#: [id number] / [id number]
[2017-12-07 06:21] VITALS: BP 125/70
[2017-12-07] MEDS: LISINOPRIL 5 MG TABLET. PO SCH (08:29)
[2017-12-07] MEDS: busPIRone 5 MG TABLET. PO SCH ×2 (08:29→20:14)
[2017-12-07] MEDS: PANTOPRAZOLE 40 MG TABLET. PO SCH (08:29)
[2017-12-07] MEDS: CLOPIDOGREL BISULFATE 75 MG TABLET PO SCH (08:30)
[2017-12-07] MEDS: DULoxetine HCL 60 MG CAPSULE.DR PO SCH (08:30)
[2017-12-07] MEDS: FUROSEMIDE 20 MG TABLET PO SCH (08:30)
[2017-12-07] MEDS: FAMOTIDINE 20 MG TABLET PO SCH (08:31)
[2017-12-07] MEDS: METOPROLOL TART IMMED RELEASE 50 MG TABLET PO SCH ×2 (08:31→20:12)
[2017-12-07] MEDS: MULTIVITAMIN with MINERAL TABLET. PO SCH (08:31)
[2017-12-07] MEDS: CYANOCOBALAMIN (VITAMIN B-12) 1,000 MCG TABLET. PO SCH (08:31)
[2017-12-07] MEDS: metFORMIN 500 MG TABLET PO SCH ×2 (08:31→18:00)
[2017-12-07] MEDS: CHOLECALCIFEROL (VITAMIN D3) 1,000 UNIT TABLET PO SCH (08:31)
[2017-12-07] MEDS: INSULIN LISPRO 300 UNITS/3 ML INSULN.PEN. SQ SCH ×3 (08:33→18:01)
[2017-12-07] MEDS: FLUTICASONE 50MCG/NASAL SPRAY 16GM BOTTLE. NS SCH (08:33)
[2017-12-07] MEDS: HYDROcodone/APAP 5/325MG 1 TAB TABLET PO PRN (09:39)
--- NOTE | 2017-12-07 12:10 | NUR ---
Behavior Intervention Response and Plan: BIRP Note: Behavior: Assumed Care of patient, patient located in Day Room at shift change. Patient exhibited the following behavior Disorganized, Anxious, Cooperative. Brief assessment on rounds of vital signs, medication needs, lab studies, and pain. Treatment plan problems 1-2. Intervention: Patient assessed and the following interventions initiated safety checks 15 Minute Checks Personal Alarm in place , Cognitive Assessment , Head to toe Assessment. Response: After interactions and interventions patient responded in the following manner, Disorganized , Cooperative ,Drowsy. Continue to assess behaviors and condition will continue to monitor throughout the shift as needed. Patient educated on ADL's, and hand hygiene. Plan: Continue to monitor Master Treatment Plan for patient's progress toward short term goals of Improved Mood, Medication Compliance, terminal operations manager goals to return to previous living setting vs placement. Continue to assess patient for changes in above assessment. Monitor for medication needs, pain, and safety concerns. Hourly rounding performed to ensure safe environment.
[2017-12-07 16:15] VITALS: BP 124/62
--- NOTE | 2017-12-07 16:15 | NUR ---
Attempted to meet and complete Activity Therapy Assessment; however, Pt. was asleep.
[2017-12-07] MEDS: ATORVASTATIN CALCIUM 10 MG TABLET. PO SCH (20:00)
[2017-12-07] MEDS: INSULIN GLARGINE 300 UNITS/3 ML INSULN.PEN. SQ SCH (20:16)
--- NOTE | 2017-12-07 20:44 | PDOC ---
Exam Note: Zaid Note: Please also refer to the separate dictated note~for this date of service dictated separately.~Patient seen individually. Discussed the patient with Nursing staff reviewed the chart.~Reviewed interim history and current functioning. Reviewed vital signs,~Labs/ Radiology~and current medications noted below. Continue current treatment with the changes noted in the dictated addendum note Assessment: Vital Signs: Vital Signs Date Time Temp Pulse Resp B/P (MAP) Pulse Ox O2 Delivery O2 Flow Rate FiO2 12/07/17 20:12 78 105/50 12/07/17 16:15 97.8 20 98 12/06/17 02:11 Room Air I&O Intake and Output 12/07/17 07:00 Intake Total 600 ml Balance 600 ml Intake Oral 600 ml # Bowel Movements 1 Labs: Laboratory Tests Test 12/07/17 07:21 12/07/17 11:36 12/07/17 16:43 12/07/17 19:24 Glucose (Fingerstick) 157 mg/dL (70-99) H 178 mg/dL (70-99) H 264 mg/dL (70-99) H 276 mg/dL (70-99) H Current Medications: Meds: Current Medications Acetaminophen (Tylenol) 650 mg PRN Q6HRS PRN PO MILD PAIN / TEMP Last administered on 12/04/17at 20:04; Start 12/04/17 at 02:45 Multi-Ingredient Ointment (Analgesic [place]) 1 apige PRN QID PRN TP MUSCLE PAIN; Start 12/04/17 at 02:45 Al Hydroxide/Mg Hydroxide (Mylanta Plus Xs) 15 ml PRN AFTMEALHC PRN PO DYSPEPSIA; Start 12/04/17 at 02:45 Magnesium Hydroxide (Milk Of Magnesia) 2,400 mg PRN QHS PRN PO CONSTIPATION; Start 12/04/17 at 02:45 Duloxetine HCl (Cymbalta) 60 mg DAILY PO Last administered on 12/07/17at 08:30; Start 12/04/17 at 09:00 Dextrose 12.5 gm PRN Q15MIN PRN IV SEE COMMENTS; Start 12/04/17 at 02:45 Vitamin D (Vitamin D3) 1,000 unit DAILY PO Last administered on 12/07/17at 08:31 ; Start 12/04/17 at 09:00 Clopidogrel Bisulfate (Plavix) 75 mg DAILY PO Last administered on 12/07/17 08 :30; Start 12/04/17 at 09:00 Cyanocobalamin (Vitamin B-12) 1,000 mcg DAILY PO Last administered on 08:31; Start 12/04/17 at 09:00 Furosemide (Lasix) 10 mg DAILY PO Last administered on 12/07/17 08:30; Start 12/04/17 at 09:00 Insulin Glargine (Lantus) 10 units QHS SQ Last administered on 12/04/17 20:00 ; Start 12/04/17 at 21:00; Stop 12/05/17 at 15:57; Status DC Insulin Human Lispro (HumaLOG) 5 units TIDWMEALS SQ Last administered on 12:06; Start 12/04/17 at 08:00; Stop 12/05/17 at 15:57; Status DC Lisinopril (Prinivil) 5 mg DAILY PO Last administered on 12/07/17 08:29; Start 12/04/17 at 09:00 Atorvastatin Calcium (Lipitor) 10 mg QHS PO Last administered on 12/07/17 20: 00; Start 12/04/17 at 21:00 Docusate Sodium (Colace) 100 mg PRN DAILY PRN PO CONSTIPATION; Start 12/04/17 at 03:00 Famotidine (Pepcid) 20 mg DAILY PO Last administered on 12/07/17 08:31; Start 12/04/17 at 09:00 Non-Formulary Medication (Famotidine/Ca Carb/Mag Hydrox (Tums Dual Action Tablet Chew)) 1,000 mg DAILY PO ; Start 12/04/17 at 09:00; Status UNV Fluticasone Propionate (Flonase) 2 spray DAILY NS Last administered on 08:33; Start 12/04/17 at 09:00 Acetaminophen/ Hydrocodone Bitart (Lortab 5/325) 1 tab PRN Q6HRS PRN PO PAIN Last administered on 12/07/17 09:39; Start 12/04/17 at 03:00 Lidocaine (Lidoderm) 1 patch PRN DAILY PRN TD PAIN; Start 12/04/17 at 09:00 Metformin HCl (Glucophage) 500 mg BIDWMEALS PO Last administered on 12/07/17at 18:00; Start 12/04/17 at 08:00 Multivitamins/ Calcium (Thera-M Plus) 1 tab DAILY PO Last administered on 08:31; Start 12/04/17 at 09:00 Non-Formulary Medication (Nebivolol Hcl (Bystolic)) 5 mg BID PO ; Start at 09:00; Stop 12/04/17 at 09:00; Status DC Pantoprazole Sodium (Protonix) 40 mg DAILYAC PO Last administered on 12/07/17 08:29; Start 12/04/17 at 07:30 Artificial Tears (Artificial Tears) 1 drop PRN QID PRN OU DRY EYE; Start at 03:00 Metoprolol Tartrate (Lopressor) 50 mg BID PO Last administered on 12/07/17 08: 31; Start 12/04/17 at 09:00 Insulin Human Lispro (HumaLOG) 9 units 1X ONCE SQ Last administered on at 12:24; Start 12/04/17 at 12:15; Stop 12/04/17 at 12:16; Status DC Insulin Glargine (Lantus) 15 units QHS SQ Last administered on 12/07/17at 20:16 ; Start 12/05/17 at 21:00 Insulin Human Lispro (HumaLOG) 7 units TIDWMEALS SQ Last administered on at 18:01; Start 12/05/17 at 17:00 Olanzapine (ZyPREXA ZYDIS) 2.5 mg PRN Q2HR PRN PO PSYCHOSIS Last administered on 12/06/17at 17:46; Start 12/05/17 at 18:15 Buspirone HCl (Buspar) 5 mg BID PO Last administered on 12/07/17 08:29; Start 12/06/17 at 09:00 Quetiapine Fumarate (SEROquel) 12.5 mg DAILY@1500 PO ; Start 12/08/17 at 15:00 Active Scripts Active Reported Vitamin D3 (Cholecalciferol (Vitamin D3)) 1,000 Unit Tablet 1,000 Unit PO DAILY Clopidogrel (Clopidogrel Bisulfate) 75 Mg Tablet 75 Mg PO DAILY Flonase Sensimist (Fluticasone Furoate) 9.9 Ml [place].susp 2 Sprays NS DAILY Docusate Sodium 250 Mg Capsule 250 Mg PO PRN DAILY PRN Tums Dual Action Tablet Chew (Famotidine/Ca Carb/Mag Hydrox) 1 Each Tab.chew 1, 000 Mg PO DAILY Vitamin B-12 (Cyanocobalamin (Vitamin B-12)) 1,000 Mcg Tablet 1,000 Mcg PO DAILY Multivitamins (Multivitamin) 1 Each Tablet 1 Tab PO DAILY Furosemide 20 Mg Tablet 10 Mg PO DAILY Bystolic (Nebivolol Hcl) 5 Mg Tablet 5 Mg PO BID Zestril (Lisinopril) 5 Mg Tablet 5 Mg PO DAILY Acetaminophen 325 Mg Tablet 650 Mg PO PRN Q8HRS PRN Lidocaine 1 Each Adh..patch 1 Patch TP PRN DAILY PRN [place] 5-325 Tablet (Hydrocodone Bit/Acetaminophen) 1 Each Tablet 1 Tab PO PRN Q6HRS PRN Lipitor (Atorvastatin Calcium) 10 Mg Tablet 10 Mg PO QHS Lantus Solostar (Insulin Glargine,Hum.rec.anlog) 100 Unit/1 Ml Insuln.pen 10 Unit SQ QHS Pepcid (Famotidine) 20 Mg Tablet 20 Mg PO DAILY Pantoprazole Sodium 40 Mg Tablet. 40 Mg PO DAILY Milk Of Magnesia (Magnesium Hydroxide) 2,400 Mg/10 Ml Oral.susp 10 Ml PO PRN DAILY PRN Systane 0.3-0.4% Eye Drops (Propylene Glycol/Peg 400) 15 Ml Drops 1 Drop EACHEYE QID PRN Metformin Hcl 500 Mg Tablet 500 Mg PO BIDWMEALS Cymbalta (Duloxetine Hcl) 60 Mg Capsule. 60 Mg PO DAILY Humalog (Insulin Lispro) 100 Unit/1 Ml Insuln.pen 5 Unit SQ TIDWMEALS I have reviewed the current psychotropics carefully including drug interactions. Risk benefit ratio favors no change other than as noted in my dictated progress note. Diagnosis: Problems: (1) Anxiety disorder (2) Dementia in Alzheimer's disease with delusions (3) Dementia in Alzheimer's disease with depression (4) Dementia, vascular, with delusions (5) Dementia, vascular, with depression (6) Impulse control disorder DANE CHERRY MD December 07, 2017 20:44
--- NOTE | 2017-12-08 02:13 | NUR ---
Nursing Note Patient found sitting in day room in wheel chair. Patient drowsy but compliant with medications and assessment. Patient blood pressure medications held R/T low blood pressure. Patient alert and oriented to self only. Patient remains in chair in day room at this time.
[2017-12-08 06:02] VITALS: BP 177/69
[2017-12-08] MEDS: LISINOPRIL 5 MG TABLET. PO SCH (07:42)
[2017-12-08] MEDS: FAMOTIDINE 20 MG TABLET PO SCH (07:42)
[2017-12-08] MEDS: CLOPIDOGREL BISULFATE 75 MG TABLET PO SCH (07:42)
[2017-12-08] MEDS: MULTIVITAMIN with MINERAL TABLET. PO SCH (07:42)
[2017-12-08] MEDS: busPIRone 5 MG TABLET. PO SCH ×2 (07:42→20:53)
[2017-12-08] MEDS: CYANOCOBALAMIN (VITAMIN B-12) 1,000 MCG TABLET. PO SCH (07:42)
[2017-12-08] MEDS: CHOLECALCIFEROL (VITAMIN D3) 1,000 UNIT TABLET PO SCH (07:42)
[2017-12-08] MEDS: DULoxetine HCL 60 MG CAPSULE.DR PO SCH (07:43)
[2017-12-08] MEDS: PANTOPRAZOLE 40 MG TABLET. PO SCH (07:43)
[2017-12-08] MEDS: FUROSEMIDE 20 MG TABLET PO SCH (07:43)
[2017-12-08] MEDS: metFORMIN 500 MG TABLET PO SCH ×3 (07:43→17:16)
[2017-12-08] MEDS: METOPROLOL TART IMMED RELEASE 50 MG TABLET PO SCH ×2 (07:43→20:58)
[2017-12-08] MEDS: INSULIN LISPRO 300 UNITS/3 ML INSULN.PEN. SQ SCH ×3 (08:29→17:16)
[2017-12-08] MEDS: FLUTICASONE 50MCG/NASAL SPRAY 16GM BOTTLE. NS SCH (10:59)
--- NOTE | 2017-12-08 11:32 | PN ---
DATE: 12/05/2017 PSYCHIATRIC PROGRESS NOTE This is a late entry 12/05/2017 covers elements not covered in my initial note 12/05/2017. SUBJECTIVE: I met with the patient in the evening. Overall, the patient had a better day. After dinner, she was somewhat more anxious, looking for her , received p.r.n. Zyprexa and then did better. REVIEW OF SYSTEMS: No CV, , pulmonary, eye system symptoms on review. Reliability poor. Gait unsteady in wheelchair. MENTAL STATUS EXAM: Oriented to herself. Insight, judgment, recent and remote memory, attention, concentration, fund of knowledge poor, consistent with her diagnosis mentioned in my initial note. IMPRESSION: Unchanged from initial note. PLAN: Start BuSpar 5 mg 9 a.m., 1 p.m. Continue rest unchanged per the initial note including Cymbalta, Zyprexa p.r.n. MAN M. MD JO ANN DR: WILLIAM/erica JOB#: [id number] / [id number]
--- NOTE | 2017-12-08 11:53 | PN ---
DATE: 12/06/2017 PSYCHIATRIC PROGRESS NOTE This is a late entry 12/06/2017, covers elements not covered in my initial note 12/06/2017. SUBJECTIVE: I met with the patient in the evening. The patient slept 5-3/4 hours previous evening. She has had repeated falls and at risk for falls, remains on one-on-one status. Resistive with medications. Calm, at times confused, disorganized. REVIEW OF SYSTEMS: Ambulation impaired. No CV, , pulmonary, eye system symptoms on review. Reliability poor. MENTAL STATUS EXAM: Oriented to herself. Insight, judgment, recent and remote memory, attention, concentration, fund of knowledge poor, consistent with her diagnoses mentioned in my initial note. PLAN: Continue current psychotropics, may increase BuSpar gradually. MAN Sheila CHERRY MD DR: WILLIAM/erica JOB#: [id number] / [id number]
--- NOTE | 2017-12-08 13:45 | NUR ---
ACTIVITY THERAPY ASSESSMENT Completed based on observation and interview. Pt. was agreeable to speak with EMBRYOLOGY PROFESSOR. She did not have much to say. She stated she's been here a couple months and currently in [place] and said she's never been to [place]. When asked what she does for fun, she stated she doesn't know. Pt. was able to describe different colors on her clothes but used descriptions like: persimmon, barros flannel, charcoal. First she stated she had no children then that she had 9 kids. Pt. has stitches in her head and explained she was running and fell. Pt. is usually alert when around group and enjoys socializing. Initial goal aimed to continue socialization and engagement: Pt. will participate in at least two groups a day.
[2017-12-08] MEDS: QUEtiapine 25 MG TABLET. PO SCH (14:12)
--- NOTE | 2017-12-08 15:00 | NUR ---
WEEKLY THERAPEUTIC RECREATION NOTE Date of Admission: 12/04/2017 Date of AT Assessment: 12/08/2017 Goal aimed: to increase stimulation and socialization Initial goal: Pt. will participate in at least two groups a day Weekly progress towards goal: on track Group participation level: minimal Behaviors observed: enjoys coffee group, pleasant and likes to smile/ laugh, difficult to engage in long conversation/ groups Plan: no changes to goal
[2017-12-08 16:11] VITALS: BP 96/63
[2017-12-08] MEDS: ATORVASTATIN CALCIUM 10 MG TABLET. PO SCH (20:53)
--- NOTE | 2017-12-08 20:58 | PDOC ---
Exam Note: Zaid Note: Please also refer to the separate dictated note~for this date of service dictated separately.~Patient seen individually. Discussed the patient with Nursing staff reviewed the chart.~Reviewed interim history and current functioning. Reviewed vital signs,~Labs/ Radiology~and current medications noted below. Continue current treatment with the changes noted in the dictated addendum note Assessment: Vital Signs: Vital Signs Date Time Temp Pulse Resp B/P (MAP) Pulse Ox O2 Delivery O2 Flow Rate FiO2 12/08/17 16:11 97.6 87 16 96/63 (74) 99 Room Air I&O Intake and Output 12/08/17 07:00 Intake Total 840 ml Balance 840 ml Intake Oral 840 ml # Bowel Movements 1 Labs: Laboratory Tests Test 12/08/17 07:14 12/08/17 11:27 12/08/17 16:09 12/08/17 19:13 Glucose (Fingerstick) 152 mg/dL (70-99) H 262 mg/dL (70-99) H 280 mg/dL (70-99) H 196 mg/dL (70-99) H Current Medications: Meds: Current Medications Acetaminophen (Tylenol) 650 mg PRN Q6HRS PRN PO MILD PAIN / TEMP Last administered on 12/04/17at 20:04; Start 12/04/17 at 02:45 Multi-Ingredient Ointment (Analgesic Bath) 1 paige PRN QID PRN TP MUSCLE PAIN; Start 12/04/17 at 02:45 Al Hydroxide/Mg Hydroxide (Mylanta Plus Xs) 15 ml PRN AFTMEALHC PRN PO DYSPEPSIA; Start 12/04/17 at 02:45 Magnesium Hydroxide (Milk Of Magnesia) 2,400 mg PRN QHS PRN PO CONSTIPATION; Start 12/04/17 at 02:45 Duloxetine HCl (Cymbalta) 60 mg DAILY PO Last administered on 12/08/17at 07:43; Start 12/04/17 at 09:00 Dextrose 12.5 gm PRN Q15MIN PRN IV SEE COMMENTS; Start 12/04/17 at 02:45 Vitamin D (Vitamin D3) 1,000 unit DAILY PO Last administered on 12/08/17at 07:42 ; Start 12/04/17 at 09:00 Clopidogrel Bisulfate (Plavix) 75 mg DAILY PO Last administered on 12/08/17 07 :42; Start 12/04/17 at 09:00 Cyanocobalamin (Vitamin B-12) 1,000 mcg DAILY PO Last administered on 07:42; Start 12/04/17 at 09:00 Furosemide (Lasix) 10 mg DAILY PO Last administered on 12/08/17 07:43; Start 12/04/17 at 09:00 Insulin Glargine (Lantus) 10 units QHS SQ Last administered on 12/04/17 20:00 ; Start 12/04/17 at 21:00; Stop 12/05/17 at 15:57; Status DC Insulin Human Lispro (HumaLOG) 5 units TIDWMEALS SQ Last administered on 12:06; Start 12/04/17 at 08:00; Stop 12/05/17 at 15:57; Status DC Lisinopril (Prinivil) 5 mg DAILY PO Last administered on 12/08/17 07:42; Start 12/04/17 at 09:00 Atorvastatin Calcium (Lipitor) 10 mg QHS PO Last administered on 12/07/17 20: 00; Start 12/04/17 at 21:00 Docusate Sodium (Colace) 100 mg PRN DAILY PRN PO CONSTIPATION; Start 12/04/17 at 03:00 Famotidine (Pepcid) 20 mg DAILY PO Last administered on 12/08/17 07:42; Start 12/04/17 at 09:00 Non-Formulary Medication (Famotidine/Ca Carb/Mag Hydrox (Tums Dual Action Tablet Chew)) 1,000 mg DAILY PO ; Start 12/04/17 at 09:00; Status UNV Fluticasone Propionate (Flonase) 2 spray DAILY NS Last administered on 08:33; Start 12/04/17 at 09:00 Acetaminophen/ Hydrocodone Bitart (Lortab 5/325) 1 tab PRN Q6HRS PRN PO PAIN Last administered on 12/07/17at 09:39; Start 12/04/17 at 03:00 Lidocaine (Lidoderm) 1 patch PRN DAILY PRN TD PAIN; Start 12/04/17 at 09:00 Metformin HCl (Glucophage) 500 mg BIDWMEALS PO Last administered on 12/08/17 07:43; Start 12/04/17 at 08:00 Multivitamins/ Calcium (Thera-M Plus) 1 tab DAILY PO Last administered on 07:42; Start 12/04/17 at 09:00 Non-Formulary Medication (Nebivolol Hcl (Bystolic)) 5 mg BID PO ; Start at 09:00; Stop 12/04/17 at 09:00; Status DC Pantoprazole Sodium (Protonix) 40 mg DAILYAC PO Last administered on 12/08/17 07:43; Start 12/04/17 at 07:30 Artificial Tears (Artificial Tears) 1 drop PRN QID PRN OU DRY EYE; Start at 03:00 Metoprolol Tartrate (Lopressor) 50 mg BID PO Last administered on 12/08/17 07: 43; Start 12/04/17 at 09:00 Insulin Human Lispro (HumaLOG) 9 units 1X ONCE SQ Last administered on 12:24; Start 12/04/17 at 12:15; Stop 12/04/17 at 12:16; Status DC Insulin Glargine (Lantus) 15 units QHS SQ Last administered on 12/07/17 20:16 ; Start 12/05/17 at 21:00 Insulin Human Lispro (HumaLOG) 7 units TIDWMEALS SQ Last administered on 13:09; Start 12/05/17 at 17:00 Olanzapine (ZyPREXA ZYDIS) 2.5 mg PRN Q2HR PRN PO PSYCHOSIS Last administered on 12/08/17 16:32; Start 12/05/17 at 18:15 Buspirone HCl (Buspar) 5 mg BID PO Last administered on 12/08/17 07:42; Start 12/06/17 at 09:00 Quetiapine Fumarate (SEROquel) 12.5 mg DAILY@1500 PO Last administered on 14:12; Start 12/08/17 at 15:00 Active Scripts Active Reported Vitamin D3 (Cholecalciferol (Vitamin D3)) 1,000 Unit Tablet 1,000 Unit PO DAILY Clopidogrel (Clopidogrel Bisulfate) 75 Mg Tablet 75 Mg PO DAILY Flonase Sensimist (Fluticasone Furoate) 9.9 Ml [place].susp 2 Sprays NS DAILY Docusate Sodium 250 Mg Capsule 250 Mg PO PRN DAILY PRN Tums Dual Action Tablet Chew (Famotidine/Ca Carb/Mag Hydrox) 1 Each Tab.chew 1, 000 Mg PO DAILY Vitamin B-12 (Cyanocobalamin (Vitamin B-12)) 1,000 Mcg Tablet 1,000 Mcg PO DAILY Multivitamins (Multivitamin) 1 Each Tablet 1 Tab PO DAILY Furosemide 20 Mg Tablet 10 Mg PO DAILY Bystolic (Nebivolol Hcl) 5 Mg Tablet 5 Mg PO BID Zestril (Lisinopril) 5 Mg Tablet 5 Mg PO DAILY Acetaminophen 325 Mg Tablet 650 Mg PO PRN Q8HRS PRN Lidocaine 1 Each Adh..patch 1 Patch TP PRN DAILY PRN [place] 5-325 Tablet (Hydrocodone Bit/Acetaminophen) 1 Each Tablet 1 Tab PO PRN Q6HRS PRN Lipitor (Atorvastatin Calcium) 10 Mg Tablet 10 Mg PO QHS Lantus Solostar (Insulin Glargine,Hum.rec.anlog) 100 Unit/1 Ml Insuln.pen 10 Unit SQ QHS Pepcid (Famotidine) 20 Mg Tablet 20 Mg PO DAILY Pantoprazole Sodium 40 Mg Tablet. 40 Mg PO DAILY Milk Of Magnesia (Magnesium Hydroxide) 2,400 Mg/10 Ml Oral.susp 10 Ml PO PRN DAILY PRN Systane 0.3-0.4% Eye Drops (Propylene Glycol/Peg 400) 15 Ml Drops 1 Drop EACHEYE QID PRN Metformin Hcl 500 Mg Tablet 500 Mg PO BIDWMEALS Cymbalta (Duloxetine Hcl) 60 Mg Capsule. 60 Mg PO DAILY Humalog (Insulin Lispro) 100 Unit/1 Ml Insuln.pen 5 Unit SQ TIDWMEALS I have reviewed the current psychotropics carefully including drug interactions. Risk benefit ratio favors no change other than as noted in my dictated progress note. Diagnosis: Problems: (1) Anxiety disorder (2) Dementia in Alzheimer's disease with delusions (3) Dementia in Alzheimer's disease with depression (4) Dementia, vascular, with delusions (5) Dementia, vascular, with depression (6) Impulse control disorder DANE CHERRY MD December 08, 2017 20:58
[2017-12-08] MEDS: INSULIN GLARGINE 300 UNITS/3 ML INSULN.PEN. SQ SCH (21:41)
--- NOTE | 2017-12-09 03:35 | PN ---
DATE: 12/07/2017 This is a late entry 12/07/2017 covers elements not covered in my initial note 12/07/2017. I met with the patient in the evening. Overall, the patient remains quite confused, somewhat delusional that her had visited her over dinnertime and she was seeing him. REVIEW OF SYSTEMS: Ambulation impaired, in wheelchair. No CV, , pulmonary, eye, ENT system symptoms on review. Reliability poor. MENTAL STATUS EXAM: Oriented to herself. Insight, judgment, recent and remote memory, attention, concentration, fund of knowledge poor, consistent with her diagnosis mentioned in my initial note. PLAN: Continue current psychotropics. Change to Seroquel to 12.5 mg at 3 p.m. Continue Cymbalta along with Zyprexa p.r.n., BuSpar 5 mg b.i.d. MAN MKyung CHERRY MD DR: WILLIAM/erica JOB#: [id number] / [id number]
--- NOTE | 2017-12-09 04:53 | NUR ---
Nursing Note Patient found in day room for shift assessment. Patient is calm, cooperative and interactive with staff during assessment and medication pass. Patient refuses to use CPAP due to pain R/T recent fall and subsequent patrick in head. Patient in bed resting after shift assessment.
[2017-12-09 06:33] LABS: CALCIUM 8.6 mg/dL (8.5-10.1); CREATININE 1.3 mg/dL (0.6-1.0); GFR 38.9; POTASSIUM 3.7 mmol/L (3.5-5.1)
[2017-12-09] MEDS: FLUTICASONE 50MCG/NASAL SPRAY 16GM BOTTLE. NS SCH (08:18)
[2017-12-09] MEDS: metFORMIN 500 MG TABLET PO SCH ×2 (08:19→17:00)
[2017-12-09] MEDS: CYANOCOBALAMIN (VITAMIN B-12) 1,000 MCG TABLET. PO SCH (08:19)
[2017-12-09] MEDS: CHOLECALCIFEROL (VITAMIN D3) 1,000 UNIT TABLET PO SCH (08:19)
[2017-12-09] MEDS: DULoxetine HCL 60 MG CAPSULE.DR PO SCH (08:19)
[2017-12-09] MEDS: MULTIVITAMIN with MINERAL TABLET. PO SCH (08:19)
[2017-12-09] MEDS: METOPROLOL TART IMMED RELEASE 50 MG TABLET PO SCH ×2 (08:19→19:43)
[2017-12-09] MEDS: busPIRone 5 MG TABLET. PO SCH ×2 (08:19→19:27)
[2017-12-09] MEDS: CLOPIDOGREL BISULFATE 75 MG TABLET PO SCH (08:19)
[2017-12-09] MEDS: FUROSEMIDE 20 MG TABLET PO SCH (08:20)
[2017-12-09] MEDS: PANTOPRAZOLE 40 MG TABLET. PO SCH (08:21)
[2017-12-09] MEDS: LISINOPRIL 5 MG TABLET. PO SCH (08:21)
[2017-12-09] MEDS: FAMOTIDINE 20 MG TABLET PO SCH (08:21)
[2017-12-09] MEDS: INSULIN LISPRO 300 UNITS/3 ML INSULN.PEN. SQ SCH ×3 (08:22→17:00)
[2017-12-09] MEDS: HYDROcodone/APAP 5/325MG 1 TAB TABLET PO PRN (09:40)
--- NOTE | 2017-12-09 13:52 | NUR ---
SW reviewed pt's insurance upon admit. Pt has Medicare part A, B and no part C. No auth required. Pt also has secondary.
--- NOTE | 2017-12-09 13:53 | NUR ---
Psychosocial Assessment completed w/pt's dtr in lawMala. Pt was born and raised in [place], [place] w/a brother and sister. Pt's mother was an alcoholic. No other family history of Dementia or mental illness. 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 Pt named Diego for 67 years until he passed in March 2017. Pt had one child named Chapito who in 2011. Pt had 2 other babies, one who a few weeks after being RH- and another who shortly after due to defects from taking a medication during . Pt's served in the and was gone a lot. Pt suffered from Depression from the loss of two of her babies and did not have a strong support system since her was gone. Pt's was very loving, but did not understand the need for pt to seek Mental Health support for her depression. Pt has no history of alcohol or substance abuse, no psych admits or SI. Pt resided in [place] w/her until he passed in 2016 and her dtr in [facility] moved Pt to [place] to be cared for. Pt really began to show signs of memory loss upon the move to [place] and was placed in Assisted Living. Likely this was the triggering event for pt as her was her primary childcare attendant and helped to cover for pt's deficits. Pt's increased agitation and aggression is very new for pt. Pt was transition to the LTC side 1 month ago due to the delusions, hallucinations and aggression. Pt [place] there at [place]. GOALS: for pt's symptoms to be managed w/medications. 1. Support by dtr in law. 2. 9 grand children
--- NOTE | 2017-12-09 14:29 | NUR ---
Behavior Intervention Response and Plan: BIRP Note: Behavior: Assumed care of patient. Patient located in dining room at shift change. Patient exhibited the following behaviors: calm, cooperative, disorganized. Brief assessment on rounds of vital signs, medication needs, lab studies, and pain. Treatment plan problems: Intervention: Patient assessed and the following interventions initiated: safety checks, 15-minute checks, cognitive assessment, head-to-toe assessment, medications. Response: After interactions and interventions patient responded in the following manner: calm, disorganized, cooperative. Continue to assess behaviors and condition will continue to monitor throughout the shift as needed. Patient educated on ADL's and hand hygiene. Plan: Continue to monitor Master Treatment Plan for patient's progress toward short-term goals of improved mood and medication compliance. Long-term goals to return to previous living setting vs placement. Continue to assess patient for changes in above assessment. Monitor for medication needs, pain, and safety concerns. Hourly rounding performed to ensure safe environment.
[2017-12-09] MEDS: QUEtiapine 25 MG TABLET. PO SCH (15:25)
[2017-12-09 16:09] VITALS: BP 100/69
--- NOTE | 2017-12-09 17:28 | NUR ---
Nursing Note: Dinnertime insulin and Metformin not administered d/t pt refused dinner.
[2017-12-09] MEDS: ATORVASTATIN CALCIUM 10 MG TABLET. PO SCH (19:27)
[2017-12-09 19:38] VITALS: BP 152/87
--- NOTE | 2017-12-09 20:38 | PDOC ---
Exam Note: Zaid Note: Please also refer to the separate dictated note~for this date of service dictated separately.~Patient seen individually. Discussed the patient with Nursing staff reviewed the chart.~Reviewed interim history and current functioning. Reviewed vital signs,~Labs/ Radiology~and current medications noted below. Continue current treatment with the changes noted in the dictated addendum note Assessment: Vital Signs: Vital Signs Date Time Temp Pulse Resp B/P (MAP) Pulse Ox O2 Delivery O2 Flow Rate FiO2 12/09/17 19:43 73 152/87 12/09/17 16:09 97.1 18 93 Room Air I&O Intake and Output 12/09/17 07:00 Intake Total 1080 ml Balance 1080 ml Intake Oral 1080 ml Labs: Laboratory Tests Test 12/09/17 06:00 12/09/17 07:17 12/09/17 11:30 12/09/17 16:09 Sodium Level 144 mmol/L (136-145) Potassium Level 3.7 mmol/L (3.5-5.1) Chloride Level 104 mmol/L (98-107) Carbon Dioxide Level 34 mmol/L (21-32) H Anion Gap 6 (6-14) Blood Urea Nitrogen 28 mg/dL (7-20) H Creatinine 1.3 mg/dL (0.6-1.0) H Estimated GFR (Cockcroft-Gault) 38.9 Glucose Level 140 mg/dL (70-99) H Calcium Level 8.6 mg/dL (8.5-10.1) Glucose (Fingerstick) 132 mg/dL (70-99) H 186 mg/dL (70-99) H 107 mg/dL (70-99) H Test 12/09/17 19:52 Glucose (Fingerstick) 125 mg/dL (70-99) H Current Medications: Meds: Current Medications Acetaminophen (Tylenol) 650 mg PRN Q6HRS PRN PO MILD PAIN / TEMP Last administered on 12/04/17at 20:04; Start 12/04/17 at 02:45 Multi-Ingredient Ointment (Analgesic [place]) 1 paige PRN QID PRN TP MUSCLE PAIN; Start 12/04/17 at 02:45 Al Hydroxide/Mg Hydroxide (Mylanta Plus Xs) 15 ml PRN AFTMEALHC PRN PO DYSPEPSIA; Start 12/04/17 at 02:45 Magnesium Hydroxide (Milk Of Magnesia) 2,400 mg PRN QHS PRN PO CONSTIPATION; Start 12/04/17 at 02:45 Duloxetine HCl (Cymbalta) 60 mg DAILY PO Last administered on 12/09/17 08:19; Start 12/04/17 at 09:00 Dextrose 12.5 gm PRN Q15MIN PRN IV SEE COMMENTS; Start 12/04/17 at 02:45 Vitamin D (Vitamin D3) 1,000 unit DAILY PO Last administered on 12/09/17 08:19 ; Start 12/04/17 at 09:00 Clopidogrel Bisulfate (Plavix) 75 mg DAILY PO Last administered on 12/09/17 08 :19; Start 12/04/17 at 09:00 Cyanocobalamin (Vitamin B-12) 1,000 mcg DAILY PO Last administered on 08:19; Start 12/04/17 at 09:00 Furosemide (Lasix) 10 mg DAILY PO Last administered on 12/09/17 08:20; Start 12/04/17 at 09:00 Insulin Glargine (Lantus) 10 units QHS SQ Last administered on 12/04/17at 20:00 ; Start 12/04/17 at 21:00; Stop 12/05/17 at 15:57; Status DC Insulin Human Lispro (HumaLOG) 5 units TIDWMEALS SQ Last administered on 12:06; Start 12/04/17 at 08:00; Stop 12/05/17 at 15:57; Status DC Lisinopril (Prinivil) 5 mg DAILY PO Last administered on 12/09/17 08:21; Start 12/04/17 at 09:00 Atorvastatin Calcium (Lipitor) 10 mg QHS PO Last administered on 12/09/17 19: 27; Start 12/04/17 at 21:00 Docusate Sodium (Colace) 100 mg PRN DAILY PRN PO CONSTIPATION; Start 12/04/17 at 03:00 Famotidine (Pepcid) 20 mg DAILY PO Last administered on 12/09/17 08:21; Start 12/04/17 at 09:00 Non-Formulary Medication (Famotidine/Ca Carb/Mag Hydrox (Tums Dual Action Tablet Chew)) 1,000 mg DAILY PO ; Start 12/04/17 at 09:00; Status UNV Fluticasone Propionate (Flonase) 2 spray DAILY NS Last administered on 08:18; Start 12/04/17 at 09:00 Acetaminophen/ Hydrocodone Bitart (Lortab 5/325) 1 tab PRN Q6HRS PRN PO PAIN Last administered on 12/09/17at 09:40; Start 12/04/17 at 03:00 Lidocaine (Lidoderm) 1 patch PRN DAILY PRN TD PAIN; Start 12/04/17 at 09:00 Metformin HCl (Glucophage) 500 mg BIDWMEALS PO Last administered on 12/09/17 08:19; Start 12/04/17 at 08:00 Multivitamins/ Calcium (Thera-M Plus) 1 tab DAILY PO Last administered on 08:19; Start 12/04/17 at 09:00 Non-Formulary Medication (Nebivolol Hcl (Bystolic)) 5 mg BID PO ; Start at 09:00; Stop 12/04/17 at 09:00; Status DC Pantoprazole Sodium (Protonix) 40 mg DAILYAC PO Last administered on 12/09/17 08:21; Start 12/04/17 at 07:30 Artificial Tears (Artificial Tears) 1 drop PRN QID PRN OU DRY EYE; Start at 03:00 Metoprolol Tartrate (Lopressor) 50 mg BID PO Last administered on 12/09/17at 19: 43; Start 12/04/17 at 09:00 Insulin Human Lispro (HumaLOG) 9 units 1X ONCE SQ Last administered on at 12:24; Start 12/04/17 at 12:15; Stop 12/04/17 at 12:16; Status DC Insulin Glargine (Lantus) 15 units QHS SQ Last administered on 12/08/17at 21:41 ; Start 12/05/17 at 21:00 Insulin Human Lispro (HumaLOG) 7 units TIDWMEALS SQ Last administered on at 12:02; Start 12/05/17 at 17:00 Olanzapine (ZyPREXA ZYDIS) 2.5 mg PRN Q2HR PRN PO PSYCHOSIS Last administered on 12/09/17at 17:51; Start 12/05/17 at 18:15 Buspirone HCl (Buspar) 5 mg BID PO Last administered on 12/09/17at 19:27; Start 12/06/17 at 09:00 Quetiapine Fumarate (SEROquel) 12.5 mg DAILY@1500 PO Last administered on at 15:25; Start 12/08/17 at 15:00; Stop 12/10/17 at 15:00 Quetiapine Fumarate (SEROquel) 25 mg DAILY@1500 PO ; Start 12/10/17 at 15:00 Active Scripts Active Reported Vitamin D3 (Cholecalciferol (Vitamin D3)) 1,000 Unit Tablet 1,000 Unit PO DAILY Clopidogrel (Clopidogrel Bisulfate) 75 Mg Tablet 75 Mg PO DAILY Flonase Sensimist (Fluticasone Furoate) 9.9 Ml [place].susp 2 Sprays NS DAILY Docusate Sodium 250 Mg Capsule 250 Mg PO PRN DAILY PRN Tums Dual Action Tablet Chew (Famotidine/Ca Carb/Mag Hydrox) 1 Each Tab.chew 1, 000 Mg PO DAILY Vitamin B-12 (Cyanocobalamin (Vitamin B-12)) 1,000 Mcg Tablet 1,000 Mcg PO DAILY Multivitamins (Multivitamin) 1 Each Tablet 1 Tab PO DAILY Furosemide 20 Mg Tablet 10 Mg PO DAILY Bystolic (Nebivolol Hcl) 5 Mg Tablet 5 Mg PO BID Zestril (Lisinopril) 5 Mg Tablet 5 Mg PO DAILY Acetaminophen 325 Mg Tablet 650 Mg PO PRN Q8HRS PRN Lidocaine 1 Each Adh..patch 1 Patch TP PRN DAILY PRN [place] 5-325 Tablet (Hydrocodone Bit/Acetaminophen) 1 Each Tablet 1 Tab PO PRN Q6HRS PRN Lipitor (Atorvastatin Calcium) 10 Mg Tablet 10 Mg PO QHS Lantus Solostar (Insulin Glargine,Hum.rec.anlog) 100 Unit/1 Ml Insuln.pen 10 Unit SQ QHS Pepcid (Famotidine) 20 Mg Tablet 20 Mg PO DAILY Pantoprazole Sodium 40 Mg Tablet.dr 40 Mg PO DAILY Milk Of Magnesia (Magnesium Hydroxide) 2,400 Mg/10 Ml Oral.susp 10 Ml PO PRN DAILY PRN Systane 0.3-0.4% Eye Drops (Propylene Glycol/Peg 400) 15 Ml Drops 1 Drop EACHEYE QID PRN Metformin Hcl 500 Mg Tablet 500 Mg PO BIDWMEALS Cymbalta (Duloxetine Hcl) 60 Mg Capsule.dr 60 Mg PO DAILY Humalog (Insulin Lispro) 100 Unit/1 Ml Insuln.pen 5 Unit SQ TIDWMEALS I have reviewed the current psychotropics carefully including drug interactions. Risk benefit ratio favors no change other than as noted in my dictated progress note. Diagnosis: Problems: (1) Anxiety disorder (2) Dementia in Alzheimer's disease with delusions (3) Dementia in Alzheimer's disease with depression (4) Dementia, vascular, with delusions (5) Dementia, vascular, with depression (6) Impulse control disorder DANE CHERRY MD December 09, 2017 20:38
[2017-12-09] MEDS: INSULIN GLARGINE 300 UNITS/3 ML INSULN.PEN. SQ SCH (21:31)
--- NOTE | 2017-12-10 02:28 | NUR ---
Nursing Note Patient very agitated and resistive to cares during assessment. Patient very resistive with medication but did take medication after much encouragement. Patient attempting to stand up from wheel chair without assistance and becomes aggressive with staff when attempting to prevent patient from falling. Patient remains in day room for supervision after assessment.
[2017-12-10 06:04] VITALS: BP 140/66
[2017-12-10] MEDS: FAMOTIDINE 20 MG TABLET PO SCH (08:48)
[2017-12-10] MEDS: CLOPIDOGREL BISULFATE 75 MG TABLET PO SCH (08:48)
[2017-12-10] MEDS: busPIRone 5 MG TABLET. PO SCH ×2 (08:48→19:47)
[2017-12-10] MEDS: MULTIVITAMIN with MINERAL TABLET. PO SCH (08:48)
[2017-12-10] MEDS: PANTOPRAZOLE 40 MG TABLET. PO SCH (08:48)
[2017-12-10] MEDS: DULoxetine HCL 60 MG CAPSULE.DR PO SCH (08:48)
[2017-12-10] MEDS: metFORMIN 500 MG TABLET PO SCH ×2 (08:49→17:24)
[2017-12-10] MEDS: METOPROLOL TART IMMED RELEASE 50 MG TABLET PO SCH ×2 (08:49→19:47)
[2017-12-10] MEDS: CHOLECALCIFEROL (VITAMIN D3) 1,000 UNIT TABLET PO SCH (08:49)
[2017-12-10] MEDS: FUROSEMIDE 20 MG TABLET PO SCH (08:49)
[2017-12-10] MEDS: FLUTICASONE 50MCG/NASAL SPRAY 16GM BOTTLE. NS SCH (08:50)
[2017-12-10] MEDS: LISINOPRIL 5 MG TABLET. PO SCH (08:50)
[2017-12-10] MEDS: CYANOCOBALAMIN (VITAMIN B-12) 1,000 MCG TABLET. PO SCH (08:50)
[2017-12-10] MEDS: INSULIN LISPRO 300 UNITS/3 ML INSULN.PEN. SQ SCH ×3 (08:54→17:27)
--- NOTE | 2017-12-10 12:00 | NUR ---
Behavior Intervention Response and Plan: BIRP Note: Behavior: Assumed Care of patient, patient located in Dining Room at shift change. Patient exhibited the following behavior Disorganized, Compliant, Interactive. Brief assessment on rounds of vital signs, medication needs, lab studies, and pain. Treatment plan problems 1-2. Intervention: Patient assessed and the following interventions initiated safety checks 15 Minute Checks Cognitive Assessment , Head to toe Assessment , . Response: After interactions and interventions patient responded in the following manner, Disorganized , Cooperative ,Compliant. Continue to assess behaviors and condition will continue to monitor throughout the shift as needed. Patient educated on ADL's, and hand hygiene. Plan: Continue to monitor Master Treatment Plan for patient's progress toward short term goals of Improved Mood, Medication Compliance, mcc goals to return to previous living setting vs placement. Continue to assess patient for changes in above assessment. Monitor for medication needs, pain, and safety concerns. Hourly rounding performed to ensure safe environment.
[2017-12-10] MEDS: QUEtiapine 25 MG TABLET. PO SCH ×2 (15:00→15:41)
[2017-12-10 16:03] VITALS: BP 178/60
[2017-12-10 18:55] LABS: BILIRUBIN,URINE NEG (NEG); CLARITY,URINE CLEAR; COLOR,URINE YELLOW; GLUCOSE,URINE 100 mg/dL (NEG)
[2017-12-10 18:56] LABS: BACTERIA,URINE 0 /HPF (0-FEW); NITRITE,URINE NEG (NEG); RBC,URINE 0 /HPF (0-2); SQUAMOUS EPITHELIAL CELL,UR FEW /LPF; UROBILINOGEN,URINE 0.2 mg/dL (0.2 mg/dL); WBC,URINE 0 /HPF (0-4)
[2017-12-10] MEDS: INSULIN GLARGINE 300 UNITS/3 ML INSULN.PEN. SQ SCH (19:52)
[2017-12-10] MEDS: ATORVASTATIN CALCIUM 10 MG TABLET. PO SCH (19:53)
--- NOTE | 2017-12-10 20:40 | PDOC ---
Exam Note: Zaid Note: Please also refer to the separate dictated note~for this date of service dictated separately.~Patient seen individually. Discussed the patient with Nursing staff reviewed the chart.~Reviewed interim history and current functioning. Reviewed vital signs,~Labs/ Radiology~and current medications noted below. Continue current treatment with the changes noted in the dictated addendum note Assessment: Vital Signs: Vital Signs Date Time Temp Pulse Resp B/P (MAP) Pulse Ox O2 Delivery O2 Flow Rate FiO2 12/10/17 19:47 80 178/60 12/10/17 16:03 97.0 18 97 12/10/17 06:04 Room Air I&O Intake and Output 12/10/17 07:00 Intake Total 1080 ml Balance 1080 ml Intake Oral 1080 ml # Bowel Movements 1 Labs: Laboratory Tests Test 12/10/17 07:35 12/10/17 11:35 12/10/17 16:32 12/10/17 18:00 Glucose (Fingerstick) 183 mg/dL (70-99) H 318 mg/dL (70-99) H 183 mg/dL (70-99) H Urine Collection Type Void Urine Color Yellow Urine Clarity Clear Urine pH 5.5 Urine Specific [place] 1.015 Urine Protein 100 mg/dl (NEG-TRACE) Urine Glucose (UA) 100 mg/dL (NEG) Urine Ketones (Stick) Neg mg/dL (NEG) Urine Blood Neg (NEG) Urine Nitrite Neg (NEG) Urine Bilirubin Neg (NEG) Urine Urobilinogen Dipstick 0.2 mg/dL (0.2 mg/dL) Urine Leukocyte Esterase Neg (NEG) Urine RBC 0 /HPF (0-2) Urine WBC 0 /HPF (0-4) Urine Squamous Epithelial Cells Few /LPF Urine Bacteria 0 /HPF (0-FEW) Test 12/10/17 19:33 Glucose (Fingerstick) 277 mg/dL (70-99) H Current Medications: Meds: Current Medications Acetaminophen (Tylenol) 650 mg PRN Q6HRS PRN PO MILD PAIN / TEMP Last administered on 12/04/17at 20:04; Start 12/04/17 at 02:45 Multi-Ingredient Ointment (Analgesic [place]) 1 paige PRN QID PRN TP MUSCLE PAIN; Start 12/04/17 at 02:45 Al Hydroxide/Mg Hydroxide (Mylanta Plus Xs) 15 ml PRN AFTMEALHC PRN PO DYSPEPSIA; Start 12/04/17 at 02:45 Magnesium Hydroxide (Milk Of Magnesia) 2,400 mg PRN QHS PRN PO CONSTIPATION; Start 12/04/17 at 02:45 Duloxetine HCl (Cymbalta) 60 mg DAILY PO Last administered on 12/10/17 08:48; Start 12/04/17 at 09:00 Dextrose 12.5 gm PRN Q15MIN PRN IV SEE COMMENTS; Start 12/04/17 at 02:45 Vitamin D (Vitamin D3) 1,000 unit DAILY PO Last administered on 12/10/17 08:49 ; Start 12/04/17 at 09:00 Clopidogrel Bisulfate (Plavix) 75 mg DAILY PO Last administered on 12/10/17 08: 48; Start 12/04/17 at 09:00 Cyanocobalamin (Vitamin B-12) 1,000 mcg DAILY PO Last administered on 12/10/17 08:50; Start 12/04/17 at 09:00 Furosemide (Lasix) 10 mg DAILY PO Last administered on 12/10/17 08:49; Start at 09:00 Insulin Glargine (Lantus) 10 units QHS SQ Last administered on 12/04/17at 20:00 ; Start 12/04/17 at 21:00; Stop 12/05/17 at 15:57; Status DC Insulin Human Lispro (HumaLOG) 5 units TIDWMEALS SQ Last administered on at 12:06; Start 12/04/17 at 08:00; Stop 12/05/17 at 15:57; Status DC Lisinopril (Prinivil) 5 mg DAILY PO Last administered on 12/10/17 08:50; Start 12/04/17 at 09:00 Atorvastatin Calcium (Lipitor) 10 mg QHS PO Last administered on 12/10/17 19:53 ; Start 12/04/17 at 21:00 Docusate Sodium (Colace) 100 mg PRN DAILY PRN PO CONSTIPATION; Start 12/04/17 at 03:00 Famotidine (Pepcid) 20 mg DAILY PO Last administered on 12/10/17 08:48; Start 12/04/17 at 09:00 Non-Formulary Medication (Famotidine/Ca Carb/Mag Hydrox (Tums Dual Action Tablet Chew)) 1,000 mg DAILY PO ; Start 12/04/17 at 09:00; Status UNV Fluticasone Propionate (Flonase) 2 spray DAILY NS Last administered on 08:50; Start 12/04/17 at 09:00 Acetaminophen/ Hydrocodone Bitart (Lortab 5/325) 1 tab PRN Q6HRS PRN PO PAIN Last administered on 12/09/17 09:40; Start 12/04/17 at 03:00 Lidocaine (Lidoderm) 1 patch PRN DAILY PRN TD PAIN; Start 12/04/17 at 09:00 Metformin HCl (Glucophage) 500 mg BIDWMEALS PO Last administered on 12/10/17 17 :24; Start 12/04/17 at 08:00 Multivitamins/ Calcium (Thera-M Plus) 1 tab DAILY PO Last administered on 08:48; Start 12/04/17 at 09:00 Non-Formulary Medication (Nebivolol Hcl (Bystolic)) 5 mg BID PO ; Start at 09:00; Stop 12/04/17 at 09:00; Status DC Pantoprazole Sodium (Protonix) 40 mg DAILYAC PO Last administered on 12/10/17 08:48; Start 12/04/17 at 07:30 Artificial Tears (Artificial Tears) 1 drop PRN QID PRN OU DRY EYE; Start at 03:00 Metoprolol Tartrate (Lopressor) 50 mg BID PO Last administered on 12/10/17 19: 47; Start 12/04/17 at 09:00 Insulin Human Lispro (HumaLOG) 9 units 1X ONCE SQ Last administered on 12:24; Start 12/04/17 at 12:15; Stop 12/04/17 at 12:16; Status DC Insulin Glargine (Lantus) 15 units QHS SQ Last administered on 12/10/17 19:52; Start 12/05/17 at 21:00 Insulin Human Lispro (HumaLOG) 7 units TIDWMEALS SQ Last administered on 17:27; Start 12/05/17 at 17:00 Olanzapine (ZyPREXA ZYDIS) 2.5 mg PRN Q2HR PRN PO PSYCHOSIS Last administered on 12/09/17at 17:51; Start 12/05/17 at 18:15 Buspirone HCl (Buspar) 5 mg BID PO Last administered on 12/10/17at 19:47; Start 12/06/17 at 09:00 Quetiapine Fumarate (SEROquel) 12.5 mg DAILY@1500 PO Last administered on at 15:25; Start 12/08/17 at 15:00; Stop 12/10/17 at 15:00; Status DC Quetiapine Fumarate (SEROquel) 25 mg DAILY@1500 PO Last administered on at 15:41; Start 12/10/17 at 15:00 Active Scripts Active Reported Vitamin D3 (Cholecalciferol (Vitamin D3)) 1,000 Unit Tablet 1,000 Unit PO DAILY Clopidogrel (Clopidogrel Bisulfate) 75 Mg Tablet 75 Mg PO DAILY Flonase Sensimist (Fluticasone Furoate) 9.9 Ml [place].susp 2 Sprays NS DAILY Docusate Sodium 250 Mg Capsule 250 Mg PO PRN DAILY PRN Tums Dual Action Tablet Chew (Famotidine/Ca Carb/Mag Hydrox) 1 Each Tab.chew 1, 000 Mg PO DAILY Vitamin B-12 (Cyanocobalamin (Vitamin B-12)) 1,000 Mcg Tablet 1,000 Mcg PO DAILY Multivitamins (Multivitamin) 1 Each Tablet 1 Tab PO DAILY Furosemide 20 Mg Tablet 10 Mg PO DAILY Bystolic (Nebivolol Hcl) 5 Mg Tablet 5 Mg PO BID Zestril (Lisinopril) 5 Mg Tablet 5 Mg PO DAILY Acetaminophen 325 Mg Tablet 650 Mg PO PRN Q8HRS PRN Lidocaine 1 Each Adh..patch 1 Patch TP PRN DAILY PRN [place] 5-325 Tablet (Hydrocodone Bit/Acetaminophen) 1 Each Tablet 1 Tab PO PRN Q6HRS PRN Lipitor (Atorvastatin Calcium) 10 Mg Tablet 10 Mg PO QHS Lantus Solostar (Insulin Glargine,Hum.rec.anlog) 100 Unit/1 Ml Insuln.pen 10 Unit SQ QHS Pepcid (Famotidine) 20 Mg Tablet 20 Mg PO DAILY Pantoprazole Sodium 40 Mg Tablet.dr 40 Mg PO DAILY Milk Of Magnesia (Magnesium Hydroxide) 2,400 Mg/10 Ml Oral.susp 10 Ml PO PRN DAILY PRN Systane 0.3-0.4% Eye Drops (Propylene Glycol/Peg 400) 15 Ml Drops 1 Drop EACHEYE QID PRN Metformin Hcl 500 Mg Tablet 500 Mg PO BIDWMEALS Cymbalta (Duloxetine Hcl) 60 Mg Capsule.dr 60 Mg PO DAILY Humalog (Insulin Lispro) 100 Unit/1 Ml Insuln.pen 5 Unit SQ TIDWMEALS I have reviewed the current psychotropics carefully including drug interactions. Risk benefit ratio favors no change other than as noted in my dictated progress note. Diagnosis: Problems: (1) Anxiety disorder (2) Dementia in Alzheimer's disease with delusions (3) Dementia in Alzheimer's disease with depression (4) Dementia, vascular, with delusions (5) Dementia, vascular, with depression (6) Impulse control disorder DANE CHERRY MD Dec 10, 2017 20:40
--- NOTE | 2017-12-10 22:45 | NUR ---
Nursing Note Pt tearful states she is really lost and afraid. I asked about what but she couldn't articulate her fears. She then became demanding wanting her pillow adjusted, the bed higher, and an additional pillow. Takes her meds willingly then settles into bed.
--- NOTE | 2017-12-11 01:13 | PN ---
DATE: 12/09/2017 PSYCHIATRIC PROGRESS NOTE This late entry 12/09/2017 covers elements not covered in my initial note of 12/09/2017. SUBJECTIVE: Met with the patient in the evening. The patient was staffed at a treatment team meeting with the entire team in the morning. Reviewed her history, diagnosis at length. Her [id number], Mala, attended the conference. Average sleep is 5-1/2 hours. Appetite is 70%, cooperative in the morning with medications. Again towards the afternoon, she gets agitated, cannot find her , little participation in groups, but she does go to the coffee group. Late in the evening, she was extremely agitated, paranoid, and we will be checking a UA to make sure there is not a UTI to explain it and increasing this 3:00 p.m. Seroquel from 12.5 mg to 25 mg. REVIEW OF SYSTEMS: Ambulation is impaired, in wheelchair. No CV, , pulmonary, eye, ENT system symptoms on review. Reliability is poor. MENTAL STATUS EXAM: Oriented to herself. Insight, judgment, recent and remote memory, attention, concentration, fund of knowledge is poor, consistent with her diagnoses. IMPRESSION: Major neurocognitive disorder, Alzheimer, vascular with delusion, depression, behavioral disturbance. Rest unchanged. PLAN: Continue current psychotropics mentioned in my initial note and the changes noted above. MAN Sheila CHERRY MD DR: WILLIAM/erica JOB#: [id number] / [id number]
--- NOTE | 2017-12-11 01:13 | PN ---
DATE: 12/08/2017 This late entry 12/08/2017 covers elements not covered in my initial note 12/08/2017. SUBJECTIVE: I met with the patient evening of 12/08/2017. The patient has done better most of the day, but starting at 4:00, she was increasingly agitated, stating she could not find her . She was calling someone by rather profane names, refused dinner except yogurt. REVIEW OF SYSTEMS: Ambulation impaired, in wheelchair. No CV, , pulmonary, eye, ENT system symptoms on review. Reliability poor. MENTAL STATUS EXAM: Oriented to herself. Insight, judgment, recent and remote memory, attention, concentration, fund of knowledge poor, consistent with her diagnosis. She is quite irritable, labile as I met with her. LABORATORY DATA: Reviewed. IMPRESSION: Unchanged from initial note. PLAN: Continue current psychotropics, may need to increase Seroquel if evening mood lability persist. DANE CHERRY MD DR: WILLIAM/erica JOB#: [id number] / [id number]
[2017-12-11 06:15] VITALS: BP 140/92
[2017-12-11 07:32] LABS: BASO % 0 % (0-3); EOS # 0.2 x10^3/uL (0.0-0.7); EOS % 2 % (0-3); HEMATOCRIT 30.1 % (36.0-47.0); HEMOGLOBIN 10.3 g/dL (12.0-15.5); LYMPH # 2.5 x10^3/uL (1.0-4.8); LYMPH % 29 % (24-48); MEAN CORPUSCULAR HEMOGLOBIN 33 pg (25-35); MEAN CORPUSCULAR HGB CONC 34 g/dL (31-37); MEAN CORPUSCULAR VOLUME 97 fL (79-100); MONO # 0.7 x10^3/uL (0.0-1.1); MONO % 8 % (0-9); NEUT # 5.3 x10^3uL (1.8-7.7); NEUT % 60 % (31-73); PLATELET COUNT 192 x10^3/uL (140-400); RED CELL DISTRIBUTION WIDTH 13.7 % (11.5-14.5); WHITE BLOOD COUNT 8.7 x10^3/uL (4.0-11.0)
[2017-12-11 07:46] LABS: ALBUMIN 2.3 g/dL (3.4-5.0); ALBUMIN/GLOBULIN RATIO 0.7 (1.0-1.7); CALCIUM 8.3 mg/dL (8.5-10.1); CREATININE 1.1 mg/dL (0.6-1.0); GFR 47.2; POTASSIUM 3.7 mmol/L (3.5-5.1); TOTAL BILIRUBIN 0.3 mg/dL (0.2-1.0); TOTAL PROTEIN 5.6 g/dL (6.4-8.2)
[2017-12-11] MEDS: PANTOPRAZOLE 40 MG TABLET. PO SCH (08:19)
[2017-12-11] MEDS: METOPROLOL TART IMMED RELEASE 50 MG TABLET PO SCH ×2 (08:20→19:40)
[2017-12-11] MEDS: DULoxetine HCL 60 MG CAPSULE.DR PO SCH (08:20)
[2017-12-11] MEDS: FUROSEMIDE 20 MG TABLET PO SCH (08:20)
[2017-12-11] MEDS: busPIRone 5 MG TABLET. PO SCH ×2 (08:20→19:39)
[2017-12-11] MEDS: metFORMIN 500 MG TABLET PO SCH ×2 (08:20→17:18)
[2017-12-11] MEDS: CHOLECALCIFEROL (VITAMIN D3) 1,000 UNIT TABLET PO SCH (08:21)
[2017-12-11] MEDS: FAMOTIDINE 20 MG TABLET PO SCH (08:21)
[2017-12-11] MEDS: CYANOCOBALAMIN (VITAMIN B-12) 1,000 MCG TABLET. PO SCH (08:21)
[2017-12-11] MEDS: MULTIVITAMIN with MINERAL TABLET. PO SCH (08:21)
[2017-12-11] MEDS: CLOPIDOGREL BISULFATE 75 MG TABLET PO SCH (08:21)
[2017-12-11] MEDS: LISINOPRIL 5 MG TABLET. PO SCH (08:21)
[2017-12-11] MEDS: INSULIN LISPRO 300 UNITS/3 ML INSULN.PEN. SQ SCH ×3 (08:51→17:19)
[2017-12-11] MEDS: FLUTICASONE 50MCG/NASAL SPRAY 16GM BOTTLE. NS SCH (09:00)
[2017-12-11] MEDS: HYDROcodone/APAP 5/325MG 1 TAB TABLET PO PRN (10:50)
--- NOTE | 2017-12-11 13:36 | NUR ---
Behavior Intervention Response and Plan: BIRP Note: Behavior: Assumed Care of patient, patient located in Patient Room at shift change. Patient exhibited the following behavior Interactive, Calm, Cooperative, happy. Brief assessment on rounds of vital signs, medication needs, lab studies, and pain. Treatment plan problems . Intervention: Patient assessed and the following interventions initiated safety checks 15 Minute Checks Cognitive Assessment , Head to toe Assessment , Medications. Response: After interactions and interventions patient responded in the following manner, Cooperative, happy, Calm, Social, interactive. Continue to assess behaviors and condition will continue to monitor throughout the shift as needed. Patient educated on ADL's, and hand hygiene. 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 Continue to assess patient for changes in above assessment. Monitor for medication needs, pain, and safety concerns. Hourly rounding performed to ensure safe environment.
[2017-12-11] MEDS: QUEtiapine 25 MG TABLET. PO SCH (15:09)
[2017-12-11 16:35] VITALS: BP 128/64
[2017-12-11] MEDS: ATORVASTATIN CALCIUM 10 MG TABLET. PO SCH (19:40)
[2017-12-11] MEDS: INSULIN GLARGINE 300 UNITS/3 ML INSULN.PEN. SQ SCH (19:41)
--- NOTE | 2017-12-11 22:05 | PDOC ---
Exam Note: Zaid Note: Please also refer to the separate dictated note~for this date of service dictated separately.~Patient seen individually. Discussed the patient with Nursing staff reviewed the chart.~Reviewed interim history and current functioning. Reviewed vital signs,~Labs/ Radiology~and current medications noted below. Continue current treatment with the changes noted in the dictated addendum note Assessment: Vital Signs: Vital Signs Date Time Temp Pulse Resp B/P (MAP) Pulse Ox O2 Delivery O2 Flow Rate FiO2 12/11/17 19:40 61 128/64 12/11/17 16:35 97.5 18 98 12/10/17 06:04 Room Air I&O Intake and Output 12/11/17 07:00 Intake Total 720 ml Balance 720 ml Intake Oral 720 ml Labs: Laboratory Tests Test 12/11/17 06:53 12/11/17 07:44 12/11/17 11:49 12/11/17 17:02 White Blood Count 8.7 x10^3/uL (4.0-11.0) Red Blood Count 3.10 x10^6/uL (3.50-5.40) L Hemoglobin 10.3 g/dL (12.0-15.5) L Hematocrit 30.1 % (36.0-47.0) L Mean Corpuscular Volume 97 fL (79-100) Mean Corpuscular Hemoglobin 33 pg (25-35) Mean Corpuscular Hemoglobin Concent 34 g/dL (31-37) Red Cell Distribution Width 13.7 % (11.5-14.5) Platelet Count 192 x10^3/uL (140-400) Neutrophils (%) (Auto) 60 % (31-73) Lymphocytes (%) (Auto) 29 % (24-48) Monocytes (%) (Auto) 8 % (0-9) Eosinophils (%) (Auto) 2 % (0-3) Basophils (%) (Auto) 0 % (0-3) Neutrophils # (Auto) 5.3 x10^3uL (1.8-7.7) Lymphocytes # (Auto) 2.5 x10^3/uL (1.0-4.8) Monocytes # (Auto) 0.7 x10^3/uL (0.0-1.1) Eosinophils # (Auto) 0.2 x10^3/uL (0.0-0.7) Basophils # (Auto) 0.0 x10^3/uL (0.0-0.2) Sodium Level 143 mmol/L (136-145) Potassium Level 3.7 mmol/L (3.5-5.1) Chloride Level 106 mmol/L (98-107) Carbon Dioxide Level 32 mmol/L (21-32) Anion Gap 5 (6-14) L Blood Urea Nitrogen 20 mg/dL (7-20) Creatinine 1.1 mg/dL (0.6-1.0) H Estimated GFR (Cockcroft-Gault) 47.2 BUN/Creatinine Ratio 18 (6-20) Glucose Level 205 mg/dL (70-99) H Calcium Level 8.3 mg/dL (8.5-10.1) L Total Bilirubin 0.3 mg/dL (0.2-1.0) Aspartate Amino Transferase (AST) 18 U/L (15-37) Alanine Aminotransferase (ALT) 16 U/L (14-59) Alkaline Phosphatase 75 U/L (46-116) Total Protein 5.6 g/dL (6.4-8.2) L Albumin 2.3 g/dL (3.4-5.0) L Albumin/Globulin Ratio 0.7 (1.0-1.7) L Glucose (Fingerstick) 191 mg/dL (70-99) H 233 mg/dL (70-99) H 92 mg/dL (70-99) Current Medications: Meds: Current Medications Acetaminophen (Tylenol) 650 mg PRN Q6HRS PRN PO MILD PAIN / TEMP Last administered on 12/04/17at 20:04; Start 12/04/17 at 02:45 Multi-Ingredient Ointment (Analgesic [place]) 1 paige PRN QID PRN TP MUSCLE PAIN; Start 12/04/17 at 02:45 Al Hydroxide/Mg Hydroxide (Mylanta Plus Xs) 15 ml PRN AFTMEALHC PRN PO DYSPEPSIA; Start 12/04/17 at 02:45 Magnesium Hydroxide (Milk Of Magnesia) 2,400 mg PRN QHS PRN PO CONSTIPATION; Start 12/04/17 at 02:45 Duloxetine HCl (Cymbalta) 60 mg DAILY PO Last administered on 12/11/17at 08:20; Start 12/04/17 at 09:00 Dextrose 12.5 gm PRN Q15MIN PRN IV SEE COMMENTS; Start 12/04/17 at 02:45 Vitamin D (Vitamin D3) 1,000 unit DAILY PO Last administered on 12/11/17 08:21 ; Start 12/04/17 at 09:00 Clopidogrel Bisulfate (Plavix) 75 mg DAILY PO Last administered on 12/11/17 08: 21; Start 12/04/17 at 09:00 Cyanocobalamin (Vitamin B-12) 1,000 mcg DAILY PO Last administered on 12/11/17 08:21; Start 12/04/17 at 09:00 Furosemide (Lasix) 10 mg DAILY PO Last administered on 12/11/17 08:20; Start at 09:00 Insulin Glargine (Lantus) 10 units QHS SQ Last administered on 12/04/17at 20:00 ; Start 12/04/17 at 21:00; Stop 12/05/17 at 15:57; Status DC Insulin Human Lispro (HumaLOG) 5 units TIDWMEALS SQ Last administered on 12:06; Start 12/04/17 at 08:00; Stop 12/05/17 at 15:57; Status DC Lisinopril (Prinivil) 5 mg DAILY PO Last administered on 12/11/17 08:21; Start 12/04/17 at 09:00 Atorvastatin Calcium (Lipitor) 10 mg QHS PO Last administered on 12/11/17at 19:40 ; Start 12/04/17 at 21:00 Docusate Sodium (Colace) 100 mg PRN DAILY PRN PO CONSTIPATION; Start 12/04/17 at 03:00 Famotidine (Pepcid) 20 mg DAILY PO Last administered on 12/11/17 08:21; Start 12/04/17 at 09:00 Non-Formulary Medication (Famotidine/Ca Carb/Mag Hydrox (Tums Dual Action Tablet Chew)) 1,000 mg DAILY PO ; Start 12/04/17 at 09:00; Status UNV Fluticasone Propionate (Flonase) 2 spray DAILY NS Last administered on at 08:50; Start 12/04/17 at 09:00 Acetaminophen/ Hydrocodone Bitart (Lortab 5/325) 1 tab PRN Q6HRS PRN PO PAIN Last administered on 12/11/17at 10:50; Start 12/04/17 at 03:00 Lidocaine (Lidoderm) 1 patch PRN DAILY PRN TD PAIN; Start 12/04/17 at 09:00 Metformin HCl (Glucophage) 500 mg BIDWMEALS PO Last administered on 12/11/17 17 :18; Start 12/04/17 at 08:00 Multivitamins/ Calcium (Thera-M Plus) 1 tab DAILY PO Last administered on at 08:21; Start 12/04/17 at 09:00 Non-Formulary Medication (Nebivolol Hcl (Bystolic)) 5 mg BID PO ; Start at 09:00; Stop 12/04/17 at 09:00; Status DC Pantoprazole Sodium (Protonix) 40 mg DAILYAC PO Last administered on 12/11/17at 08:19; Start 12/04/17 at 07:30 Artificial Tears (Artificial Tears) 1 drop PRN QID PRN OU DRY EYE; Start at 03:00 Metoprolol Tartrate (Lopressor) 50 mg BID PO Last administered on 12/11/17 19: 40; Start 12/04/17 at 09:00 Insulin Human Lispro (HumaLOG) 9 units 1X ONCE SQ Last administered on at 12:24; Start 12/04/17 at 12:15; Stop 12/04/17 at 12:16; Status DC Insulin Glargine (Lantus) 15 units QHS SQ Last administered on 12/11/17at 19:41; Start 12/05/17 at 21:00 Insulin Human Lispro (HumaLOG) 7 units TIDWMEALS SQ Last administered on 17:19; Start 12/05/17 at 17:00 Olanzapine (ZyPREXA ZYDIS) 2.5 mg PRN Q2HR PRN PO PSYCHOSIS Last administered on 12/09/17at 17:51; Start 12/05/17 at 18:15 Buspirone HCl (Buspar) 5 mg BID PO Last administered on 12/11/17 19:39; Start 12/06/17 at 09:00 Quetiapine Fumarate (SEROquel) 12.5 mg DAILY@1500 PO Last administered on at 15:25; Start 12/08/17 at 15:00; Stop 12/10/17 at 15:00; Status DC Quetiapine Fumarate (SEROquel) 25 mg DAILY@1500 PO Last administered on at 15:09; Start 12/10/17 at 15:00; Stop 12/11/17 at 18:07; Status DC Quetiapine Fumarate (SEROquel) 37.5 mg DAILY@1500 PO ; Start 12/12/17 at 15:00 Active Scripts Active Reported Vitamin D3 (Cholecalciferol (Vitamin D3)) 1,000 Unit Tablet 1,000 Unit PO DAILY Clopidogrel (Clopidogrel Bisulfate) 75 Mg Tablet 75 Mg PO DAILY Flonase Sensimist (Fluticasone Furoate) 9.9 Ml [place].susp 2 Sprays NS DAILY Docusate Sodium 250 Mg Capsule 250 Mg PO PRN DAILY PRN Tums Dual Action Tablet Chew (Famotidine/Ca Carb/Mag Hydrox) 1 Each Tab.chew 1, 000 Mg PO DAILY Vitamin B-12 (Cyanocobalamin (Vitamin B-12)) 1,000 Mcg Tablet 1,000 Mcg PO DAILY Multivitamins (Multivitamin) 1 Each Tablet 1 Tab PO DAILY Furosemide 20 Mg Tablet 10 Mg PO DAILY Bystolic (Nebivolol Hcl) 5 Mg Tablet 5 Mg PO BID Zestril (Lisinopril) 5 Mg Tablet 5 Mg PO DAILY Acetaminophen 325 Mg Tablet 650 Mg PO PRN Q8HRS PRN Lidocaine 1 Each Adh..patch 1 Patch TP PRN DAILY PRN [place] 5-325 Tablet (Hydrocodone Bit/Acetaminophen) 1 Each Tablet 1 Tab PO PRN Q6HRS PRN Lipitor (Atorvastatin Calcium) 10 Mg Tablet 10 Mg PO QHS Lantus Solostar (Insulin Glargine,Hum.rec.anlog) 100 Unit/1 Ml Insuln.pen 10 Unit SQ QHS Pepcid (Famotidine) 20 Mg Tablet 20 Mg PO DAILY Pantoprazole Sodium 40 Mg Tablet.dr 40 Mg PO DAILY Milk Of Magnesia (Magnesium Hydroxide) 2,400 Mg/10 Ml Oral.susp 10 Ml PO PRN DAILY PRN Systane 0.3-0.4% Eye Drops (Propylene Glycol/Peg 400) 15 Ml Drops 1 Drop EACHEYE QID PRN Metformin Hcl 500 Mg Tablet 500 Mg PO BIDWMEALS Cymbalta (Duloxetine Hcl) 60 Mg Capsule.dr 60 Mg PO DAILY Humalog (Insulin Lispro) 100 Unit/1 Ml Insuln.pen 5 Unit SQ TIDWMEALS I have reviewed the current psychotropics carefully including drug interactions. Risk benefit ratio favors no change other than as noted in my dictated progress note. Diagnosis: Problems: (1) Anxiety disorder (2) Dementia in Alzheimer's disease with delusions (3) Dementia in Alzheimer's disease with depression (4) Dementia, vascular, with delusions (5) Dementia, vascular, with depression (6) Impulse control disorder DANE CHERRY MD Dec 11, 2017 22:05
[2017-12-12 03:53] VITALS: BP 177/75
[2017-12-12 05:49] VITALS: BP 135/60
[2017-12-12] MEDS: INSULIN LISPRO 300 UNITS/3 ML INSULN.PEN. SQ SCH ×3 (07:50→17:13)
[2017-12-12] MEDS: metFORMIN 500 MG TABLET PO SCH ×3 (08:49→17:50)
[2017-12-12] MEDS: PANTOPRAZOLE 40 MG TABLET. PO SCH (08:49)
[2017-12-12] MEDS: DULoxetine HCL 60 MG CAPSULE.DR PO SCH (08:50)
[2017-12-12] MEDS: FLUTICASONE 50MCG/NASAL SPRAY 16GM BOTTLE. NS SCH (08:50)
[2017-12-12] MEDS: FUROSEMIDE 20 MG TABLET PO SCH (08:50)
[2017-12-12] MEDS: busPIRone 5 MG TABLET. PO SCH ×2 (08:50→20:41)
[2017-12-12] MEDS: FAMOTIDINE 20 MG TABLET PO SCH (08:51)
[2017-12-12] MEDS: CLOPIDOGREL BISULFATE 75 MG TABLET PO SCH (08:51)
[2017-12-12] MEDS: METOPROLOL TART IMMED RELEASE 50 MG TABLET PO SCH ×2 (08:51→20:41)
[2017-12-12] MEDS: CHOLECALCIFEROL (VITAMIN D3) 1,000 UNIT TABLET PO SCH (08:52)
[2017-12-12] MEDS: MULTIVITAMIN with MINERAL TABLET. PO SCH (08:52)
[2017-12-12] MEDS: LISINOPRIL 5 MG TABLET. PO SCH (08:52)
[2017-12-12] MEDS: CYANOCOBALAMIN (VITAMIN B-12) 1,000 MCG TABLET. PO SCH (08:52)
--- NOTE | 2017-12-12 11:34 | NUR ---
Behavior Intervention Response and Plan: BIRP Note: Behavior: Assumed Care of patient, patient located in Patient Room at shift change. Patient exhibited the following behavior Interactive, Cooperative, happy, confused. Brief assessment on rounds of vital signs, medication needs, lab studies, and pain. Treatment plan problems . Intervention: Patient assessed and the following interventions initiated safety checks 15 Minute Checks Cognitive Assessment, Head to toe Assessment , Medications. Response: After interactions and interventions patient responded in the following manner, Cooperative, Calm, Social, happy. Continue to assess behaviors and condition will continue to monitor throughout the shift as needed. Patient educated on ADL's, and hand hygiene. 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 Continue to assess patient for changes in above assessment. Monitor for medication needs, pain, and safety concerns. Hourly rounding performed to ensure safe environment.
[2017-12-12] MEDS: QUEtiapine 25 MG TABLET. PO SCH (14:54)
[2017-12-12 16:28] VITALS: BP 117/66
[2017-12-12] MEDS: HYDROcodone/APAP 5/325MG 1 TAB TABLET PO PRN (16:43)
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
--- NOTE | 2017-12-12 19:56 | PDOC ---
Exam Note: Zaid Note: Please also refer to the separate dictated note~for this date of service dictated separately.~Patient seen individually. Discussed the patient with Nursing staff reviewed the chart.~Reviewed interim history and current functioning. Reviewed vital signs,~Labs/ Radiology~and current medications noted below. Continue current treatment with the changes noted in the dictated addendum note Assessment: Vital Signs: Vital Signs Date Time Temp Pulse Resp B/P (MAP) Pulse Ox O2 Delivery O2 Flow Rate FiO2 12/12/17 16:28 98.3 68 16 117/66 (83) 98 12/12/17 03:53 Room Air I&O Intake and Output 12/12/17 07:00 Intake Total 800 ml Balance 800 ml Intake Oral 800 ml Labs: Laboratory Tests Test 12/12/17 07:24 12/12/17 11:47 12/12/17 16:45 Glucose (Fingerstick) 154 mg/dL (70-99) H 312 mg/dL (70-99) H 356 mg/dL (70-99) H Current Medications: Meds: Current Medications Acetaminophen (Tylenol) 650 mg PRN Q6HRS PRN PO MILD PAIN / TEMP Last administered on 12/04/17at 20:04; Start 12/04/17 at 02:45 Multi-Ingredient Ointment (Analgesic [place]) 1 paige PRN QID PRN TP MUSCLE PAIN; Start 12/04/17 at 02:45 Al Hydroxide/Mg Hydroxide (Mylanta Plus Xs) 15 ml PRN AFTMEALHC PRN PO DYSPEPSIA; Start 12/04/17 at 02:45 Magnesium Hydroxide (Milk Of Magnesia) 2,400 mg PRN QHS PRN PO CONSTIPATION; Start 12/04/17 at 02:45 Duloxetine HCl (Cymbalta) 60 mg DAILY PO Last administered on 12/12/17at 08:50; Start 12/04/17 at 09:00 Dextrose 12.5 gm PRN Q15MIN PRN IV SEE COMMENTS; Start 12/04/17 at 02:45 Vitamin D (Vitamin D3) 1,000 unit DAILY PO Last administered on 12/12/17at 08:52 ; Start 12/04/17 at 09:00 Clopidogrel Bisulfate (Plavix) 75 mg DAILY PO Last administered on 12/12/17at 08: 51; Start 12/04/17 at 09:00 Cyanocobalamin (Vitamin B-12) 1,000 mcg DAILY PO Last administered on 12/12/17 08:52; Start 12/04/17 at 09:00 Furosemide (Lasix) 10 mg DAILY PO Last administered on 12/12/17 08:50; Start at 09:00 Insulin Glargine (Lantus) 10 units QHS SQ Last administered on 12/04/17 20:00 ; Start 12/04/17 at 21:00; Stop 12/05/17 at 15:57; Status DC Insulin Human Lispro (HumaLOG) 5 units TIDWMEALS SQ Last administered on 12:06; Start 12/04/17 at 08:00; Stop 12/05/17 at 15:57; Status DC Lisinopril (Prinivil) 5 mg DAILY PO Last administered on 12/12/17 08:52; Start 12/04/17 at 09:00 Atorvastatin Calcium (Lipitor) 10 mg QHS PO Last administered on 12/11/17 19:40 ; Start 12/04/17 at 21:00 Docusate Sodium (Colace) 100 mg PRN DAILY PRN PO CONSTIPATION; Start 12/04/17 at 03:00 Famotidine (Pepcid) 20 mg DAILY PO Last administered on 12/12/17 08:51; Start 12/04/17 at 09:00 Non-Formulary Medication (Famotidine/Ca Carb/Mag Hydrox (Tums Dual Action Tablet Chew)) 1,000 mg DAILY PO ; Start 12/04/17 at 09:00; Status UNV Fluticasone Propionate (Flonase) 2 spray DAILY NS Last administered on 08:50; Start 12/04/17 at 09:00 Acetaminophen/ Hydrocodone Bitart (Lortab 5/325) 1 tab PRN Q6HRS PRN PO PAIN Last administered on 12/11/17 10:50; Start 12/04/17 at 03:00 Lidocaine (Lidoderm) 1 patch PRN DAILY PRN TD PAIN; Start 12/04/17 at 09:00 Metformin HCl (Glucophage) 500 mg BIDWMEALS PO Last administered on 12/12/17 08 :49; Start 12/04/17 at 08:00 Multivitamins/ Calcium (Thera-M Plus) 1 tab DAILY PO Last administered on 08:52; Start 12/04/17 at 09:00 Non-Formulary Medication (Nebivolol Hcl (Bystolic)) 5 mg BID PO ; Start at 09:00; Stop 12/04/17 at 09:00; Status DC Pantoprazole Sodium (Protonix) 40 mg DAILYAC PO Last administered on 12/12/17at 08:49; Start 12/04/17 at 07:30 Artificial Tears (Artificial Tears) 1 drop PRN QID PRN OU DRY EYE; Start at 03:00 Metoprolol Tartrate (Lopressor) 50 mg BID PO Last administered on 12/12/17at 08: 51; Start 12/04/17 at 09:00 Insulin Human Lispro (HumaLOG) 9 units 1X ONCE SQ Last administered on at 12:24; Start 12/04/17 at 12:15; Stop 12/04/17 at 12:16; Status DC Insulin Glargine (Lantus) 15 units QHS SQ Last administered on 12/11/17at 19:41; Start 12/05/17 at 21:00 Insulin Human Lispro (HumaLOG) 7 units TIDWMEALS SQ Last administered on 17:13; Start 12/05/17 at 17:00 Olanzapine (ZyPREXA ZYDIS) 2.5 mg PRN Q2HR PRN PO PSYCHOSIS Last administered on 12/12/17 19:50; Start 12/05/17 at 18:15 Buspirone HCl (Buspar) 5 mg BID PO Last administered on 12/12/17at 08:50; Start 12/06/17 at 09:00 Quetiapine Fumarate (SEROquel) 12.5 mg DAILY@1500 PO Last administered on at 15:25; Start 12/08/17 at 15:00; Stop 12/10/17 at 15:00; Status DC Quetiapine Fumarate (SEROquel) 25 mg DAILY@1500 PO Last administered on 15:09; Start 12/10/17 at 15:00; Stop 12/11/17 at 18:07; Status DC Quetiapine Fumarate (SEROquel) 37.5 mg DAILY@1500 PO Last administered on at 14:54; Start 12/12/17 at 15:00 Active Scripts Active Reported Vitamin D3 (Cholecalciferol (Vitamin D3)) 1,000 Unit Tablet 1,000 Unit PO DAILY Clopidogrel (Clopidogrel Bisulfate) 75 Mg Tablet 75 Mg PO DAILY Flonase Sensimist (Fluticasone Furoate) 9.9 Ml [place].susp 2 Sprays NS DAILY Docusate Sodium 250 Mg Capsule 250 Mg PO PRN DAILY PRN Tums Dual Action Tablet Chew (Famotidine/Ca Carb/Mag Hydrox) 1 Each Tab.chew 1, 000 Mg PO DAILY Vitamin B-12 (Cyanocobalamin (Vitamin B-12)) 1,000 Mcg Tablet 1,000 Mcg PO DAILY Multivitamins (Multivitamin) 1 Each Tablet 1 Tab PO DAILY Furosemide 20 Mg Tablet 10 Mg PO DAILY Bystolic (Nebivolol Hcl) 5 Mg Tablet 5 Mg PO BID Zestril (Lisinopril) 5 Mg Tablet 5 Mg PO DAILY Acetaminophen 325 Mg Tablet 650 Mg PO PRN Q8HRS PRN Lidocaine 1 Each Adh..patch 1 Patch TP PRN DAILY PRN [place] 5-325 Tablet (Hydrocodone Bit/Acetaminophen) 1 Each Tablet 1 Tab PO PRN Q6HRS PRN Lipitor (Atorvastatin Calcium) 10 Mg Tablet 10 Mg PO QHS Lantus Solostar (Insulin Glargine,Hum.rec.anlog) 100 Unit/1 Ml Insuln.pen 10 Unit SQ QHS Pepcid (Famotidine) 20 Mg Tablet 20 Mg PO DAILY Pantoprazole Sodium 40 Mg Tablet. 40 Mg PO DAILY Milk Of Magnesia (Magnesium Hydroxide) 2,400 Mg/10 Ml Oral.susp 10 Ml PO PRN DAILY PRN Systane 0.3-0.4% Eye Drops (Propylene Glycol/Peg 400) 15 Ml Drops 1 Drop EACHEYE QID PRN Metformin Hcl 500 Mg Tablet 500 Mg PO BIDWMEALS Cymbalta (Duloxetine Hcl) 60 Mg Capsule. 60 Mg PO DAILY Humalog (Insulin Lispro) 100 Unit/1 Ml Insuln.pen 5 Unit SQ TIDWMEALS I have reviewed the current psychotropics carefully including drug interactions. Risk benefit ratio favors no change other than as noted in my dictated progress note. Diagnosis: Problems: (1) Anxiety disorder (2) Dementia in Alzheimer's disease with delusions (3) Dementia in Alzheimer's disease with depression (4) Dementia, vascular, with delusions (5) Dementia, vascular, with depression (6) Impulse control disorder DANE CHERRY MD Dec 12, 2017 19:55
--- NOTE | 2017-12-12 20:00 | NUR ---
Pt very restless and agitated in dayroom. Pt refusing to stay in wheelchair, swinging at staff and repeatedly stating that she wanted to leave. PRAlberto Fitzgerald administered successfully.
[2017-12-12] MEDS: ATORVASTATIN CALCIUM 10 MG TABLET. PO SCH (20:41)
[2017-12-12] MEDS: INSULIN GLARGINE 300 UNITS/3 ML INSULN.PEN. SQ SCH (20:43)
--- NOTE | 2017-12-12 22:54 | NUR ---
Behavior Intervention Response and Plan: BIRP Note: Behavior: Assumed Care of patient, patient located in Day Room at shift change. Patient exhibited the following behavior Disorganized, Non Compliant, Resistive. Brief assessment on rounds of vital signs, medication needs, lab studies, and pain. Treatment plan problems 1-2. Intervention: Patient assessed and the following interventions initiated safety checks 15 Minute Checks Cognitive Assessment , Head to toe Assessment , Medications. Response: After interactions and interventions patient responded in the following manner, Disorganized , Restless ,Non Compliant. Continue to assess behaviors and condition will continue to monitor throughout the shift as needed. Patient educated on ADL's, and hand hygiene. 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 Continue to assess patient for changes in above assessment. Monitor for medication needs, pain, and safety concerns. Hourly rounding performed to ensure safe environment.
[2017-12-13 05:54] VITALS: BP 142/68
[2017-12-13] MEDS: MULTIVITAMIN with MINERAL TABLET. PO SCH (08:12)
[2017-12-13] MEDS: DULoxetine HCL 60 MG CAPSULE.DR PO SCH (08:12)
[2017-12-13] MEDS: CYANOCOBALAMIN (VITAMIN B-12) 1,000 MCG TABLET. PO SCH (08:12)
[2017-12-13] MEDS: PANTOPRAZOLE 40 MG TABLET. PO SCH (08:12)
[2017-12-13] MEDS: FAMOTIDINE 20 MG TABLET PO SCH (08:13)
[2017-12-13] MEDS: LISINOPRIL 5 MG TABLET. PO SCH (08:13)
[2017-12-13] MEDS: FUROSEMIDE 20 MG TABLET PO SCH (08:13)
[2017-12-13] MEDS: METOPROLOL TART IMMED RELEASE 50 MG TABLET PO SCH ×2 (08:13→19:33)
[2017-12-13] MEDS: CHOLECALCIFEROL (VITAMIN D3) 1,000 UNIT TABLET PO SCH (08:14)
[2017-12-13] MEDS: CLOPIDOGREL BISULFATE 75 MG TABLET PO SCH (08:14)
[2017-12-13] MEDS: metFORMIN 500 MG TABLET PO SCH ×2 (08:14→16:01)
[2017-12-13] MEDS: busPIRone 5 MG TABLET. PO SCH ×3 (08:20→19:32)
[2017-12-13] MEDS: INSULIN LISPRO 300 UNITS/3 ML INSULN.PEN. SQ SCH ×3 (08:30→19:23)
[2017-12-13] MEDS: FLUTICASONE 50MCG/NASAL SPRAY 16GM BOTTLE. NS SCH (08:31)
--- NOTE | 2017-12-13 13:29 | NUR ---
Behavior Intervention Response and Plan: BIRP Note: Behavior: Assumed Care of patient, patient located in Patient Room at shift change. Patient exhibited the following behavior Interactive, Calm, Cooperative, happy. Brief assessment on rounds of vital signs, medication needs, lab studies, and pain. Treatment plan problems . Intervention: Patient assessed and the following interventions initiated safety checks 15 Minute Checks Cognitive Assessment , Head to toe Assessment , Medications. Response: After interactions and interventions patient responded in the following manner, Cooperative, happy, Calm, Social, interactive. Continue to assess behaviors and condition will continue to monitor throughout the shift as needed. Patient educated on ADL's, and hand hygiene. 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 Continue to assess patient for changes in above assessment. Monitor for medication needs, pain, and safety concerns. Hourly rounding performed to ensure safe environment.
[2017-12-13] MEDS: QUEtiapine 25 MG TABLET. PO SCH (16:01)
--- NOTE | 2017-12-13 16:08 | NUR ---
VLAD spoke w/VLAD Sam at pt's facility who requested updated clinical notes to be faxed to the facility. VLAD attempted and was unable to get the fax to successfully be sent. VLAD will attempt again in the am.
[2017-12-13 16:38] VITALS: BP 148/70
[2017-12-13] MEDS: INSULIN GLARGINE 300 UNITS/3 ML INSULN.PEN. SQ SCH (19:25)
[2017-12-13] MEDS: ATORVASTATIN CALCIUM 10 MG TABLET. PO SCH (19:32)
--- NOTE | 2017-12-13 20:50 | PDOC ---
Exam Note: Zaid Note: Please also refer to the separate dictated note~for this date of service dictated separately.~Patient seen individually. Discussed the patient with Nursing staff reviewed the chart.~Reviewed interim history and current functioning. Reviewed vital signs,~Labs/ Radiology~and current medications noted below. Continue current treatment with the changes noted in the dictated addendum note Assessment: Vital Signs: Vital Signs Date Time Temp Pulse Resp B/P (MAP) Pulse Ox O2 Delivery O2 Flow Rate FiO2 12/13/17 19:33 83 148/70 12/13/17 16:38 97.2 20 99 Room Air I&O Intake and Output 12/13/17 07:00 Intake Total 840 ml Balance 840 ml Intake Oral 840 ml Labs: Laboratory Tests Test 12/13/17 07:55 12/13/17 12:07 12/13/17 16:45 12/13/17 19:21 Glucose (Fingerstick) 192 mg/dL (70-99) H 252 mg/dL (70-99) H 293 mg/dL (70-99) H 308 mg/dL (70-99) H Current Medications: Meds: Current Medications Acetaminophen (Tylenol) 650 mg PRN Q6HRS PRN PO MILD PAIN / TEMP Last administered on 12/04/17at 20:04; Start 12/04/17 at 02:45 Multi-Ingredient Ointment (Analgesic [place]) 1 paige PRN QID PRN TP MUSCLE PAIN; Start 12/04/17 at 02:45 Al Hydroxide/Mg Hydroxide (Mylanta Plus Xs) 15 ml PRN AFTMEALHC PRN PO DYSPEPSIA; Start 12/04/17 at 02:45 Magnesium Hydroxide (Milk Of Magnesia) 2,400 mg PRN QHS PRN PO CONSTIPATION; Start 12/04/17 at 02:45 Duloxetine HCl (Cymbalta) 60 mg DAILY PO Last administered on 12/13/17at 08:12; Start 12/04/17 at 09:00 Dextrose 12.5 gm PRN Q15MIN PRN IV SEE COMMENTS; Start 12/04/17 at 02:45 Vitamin D (Vitamin D3) 1,000 unit DAILY PO Last administered on 12/13/17at 08:14 ; Start 12/04/17 at 09:00 Clopidogrel Bisulfate (Plavix) 75 mg DAILY PO Last administered on 12/13/17 08: 14; Start 12/04/17 at 09:00 Cyanocobalamin (Vitamin B-12) 1,000 mcg DAILY PO Last administered on 12/13/17 08:12; Start 12/04/17 at 09:00 Furosemide (Lasix) 10 mg DAILY PO Last administered on 12/13/17 08:13; Start at 09:00 Insulin Glargine (Lantus) 10 units QHS SQ Last administered on 12/04/17 20:00 ; Start 12/04/17 at 21:00; Stop 12/05/17 at 15:57; Status DC Insulin Human Lispro (HumaLOG) 5 units TIDWMEALS SQ Last administered on 12:06; Start 12/04/17 at 08:00; Stop 12/05/17 at 15:57; Status DC Lisinopril (Prinivil) 5 mg DAILY PO Last administered on 12/13/17 08:13; Start 12/04/17 at 09:00 Atorvastatin Calcium (Lipitor) 10 mg QHS PO Last administered on 12/13/17 19:32 ; Start 12/04/17 at 21:00 Docusate Sodium (Colace) 100 mg PRN DAILY PRN PO CONSTIPATION; Start 12/04/17 at 03:00 Famotidine (Pepcid) 20 mg DAILY PO Last administered on 12/13/17 08:13; Start 12/04/17 at 09:00 Non-Formulary Medication (Famotidine/Ca Carb/Mag Hydrox (Tums Dual Action Tablet Chew)) 1,000 mg DAILY PO ; Start 12/04/17 at 09:00; Status UNV Fluticasone Propionate (Flonase) 2 spray DAILY NS Last administered on 08:31; Start 12/04/17 at 09:00 Acetaminophen/ Hydrocodone Bitart (Lortab 5/325) 1 tab PRN Q6HRS PRN PO PAIN Last administered on 12/11/17 10:50; Start 12/04/17 at 03:00 Lidocaine (Lidoderm) 1 patch PRN DAILY PRN TD PAIN; Start 12/04/17 at 09:00 Metformin HCl (Glucophage) 500 mg BIDWMEALS PO Last administered on 12/13/17 16 :01; Start 12/04/17 at 08:00 Multivitamins/ Calcium (Thera-M Plus) 1 tab DAILY PO Last administered on 08:12; Start 12/04/17 at 09:00 Non-Formulary Medication (Nebivolol Hcl (Bystolic)) 5 mg BID PO ; Start at 09:00; Stop 12/04/17 at 09:00; Status DC Pantoprazole Sodium (Protonix) 40 mg DAILYAC PO Last administered on 12/13/17 08:12; Start 12/04/17 at 07:30 Artificial Tears (Artificial Tears) 1 drop PRN QID PRN OU DRY EYE; Start at 03:00 Metoprolol Tartrate (Lopressor) 50 mg BID PO Last administered on 12/13/17 19: 33; Start 12/04/17 at 09:00 Insulin Human Lispro (HumaLOG) 9 units 1X ONCE SQ Last administered on at 12:24; Start 12/04/17 at 12:15; Stop 12/04/17 at 12:16; Status DC Insulin Glargine (Lantus) 15 units QHS SQ Last administered on 12/13/17 19:25; Start 12/05/17 at 21:00 Insulin Human Lispro (HumaLOG) 7 units TIDWMEALS SQ Last administered on 19:23; Start 12/05/17 at 17:00 Olanzapine (ZyPREXA ZYDIS) 2.5 mg PRN Q2HR PRN PO PSYCHOSIS Last administered on 12/13/17 16:50; Start 12/05/17 at 18:15 Buspirone HCl (Buspar) 5 mg BID PO Last administered on 12/12/17at 20:41; Start 12/06/17 at 09:00; Stop 12/12/17 at 23:53; Status DC Quetiapine Fumarate (SEROquel) 12.5 mg DAILY@1500 PO Last administered on at 15:25; Start 12/08/17 at 15:00; Stop 12/10/17 at 15:00; Status DC Quetiapine Fumarate (SEROquel) 25 mg DAILY@1500 PO Last administered on at 15:09; Start 12/10/17 at 15:00; Stop 12/11/17 at 18:07; Status DC Quetiapine Fumarate (SEROquel) 37.5 mg DAILY@1500 PO Last administered on at 16:01; Start 12/12/17 at 15:00 Buspirone HCl (Buspar) 5 mg BID@0900,1300 PO Last administered on 12/13/17at 13: 17; Start 12/13/17 at 09:00; Stop 12/13/17 at 19:17; Status DC Buspirone HCl (Buspar) 5 mg TID PO Last administered on 12/13/17at 19:32; Start 12/13/17 at 21:00 Active Scripts Active Reported Vitamin D3 (Cholecalciferol (Vitamin D3)) 1,000 Unit Tablet 1,000 Unit PO DAILY Clopidogrel (Clopidogrel Bisulfate) 75 Mg Tablet 75 Mg PO DAILY Flonase Sensimist (Fluticasone Furoate) 9.9 Ml [place].susp 2 Sprays NS DAILY Docusate Sodium 250 Mg Capsule 250 Mg PO PRN DAILY PRN Tums Dual Action Tablet Chew (Famotidine/Ca Carb/Mag Hydrox) 1 Each Tab.chew 1, 000 Mg PO DAILY Vitamin B-12 (Cyanocobalamin (Vitamin B-12)) 1,000 Mcg Tablet 1,000 Mcg PO DAILY Multivitamins (Multivitamin) 1 Each Tablet 1 Tab PO DAILY Furosemide 20 Mg Tablet 10 Mg PO DAILY Bystolic (Nebivolol Hcl) 5 Mg Tablet 5 Mg PO BID Zestril (Lisinopril) 5 Mg Tablet 5 Mg PO DAILY Acetaminophen 325 Mg Tablet 650 Mg PO PRN Q8HRS PRN Lidocaine 1 Each Adh..patch 1 Patch TP PRN DAILY PRN [place] 5-325 Tablet (Hydrocodone Bit/Acetaminophen) 1 Each Tablet 1 Tab PO PRN Q6HRS PRN Lipitor (Atorvastatin Calcium) 10 Mg Tablet 10 Mg PO QHS Lantus Solostar (Insulin Glargine,Hum.rec.anlog) 100 Unit/1 Ml Insuln.pen 10 Unit SQ QHS Pepcid (Famotidine) 20 Mg Tablet 20 Mg PO DAILY Pantoprazole Sodium 40 Mg Tablet.dr 40 Mg PO DAILY Milk Of Magnesia (Magnesium Hydroxide) 2,400 Mg/10 Ml Oral.susp 10 Ml PO PRN DAILY PRN Systane 0.3-0.4% Eye Drops (Propylene Glycol/Peg 400) 15 Ml Drops 1 Drop EACHEYE QID PRN Metformin Hcl 500 Mg Tablet 500 Mg PO BIDWMEALS Cymbalta (Duloxetine Hcl) 60 Mg Capsule.dr 60 Mg PO DAILY Humalog (Insulin Lispro) 100 Unit/1 Ml Insuln.pen 5 Unit SQ TIDWMEALS I have reviewed the current psychotropics carefully including drug interactions. Risk benefit ratio favors no change other than as noted in my dictated progress note. Diagnosis: Problems: (1) Anxiety disorder (2) Dementia in Alzheimer's disease with delusions (3) Dementia in Alzheimer's disease with depression (4) Dementia, vascular, with delusions (5) Dementia, vascular, with depression (6) Impulse control disorder DANE CHERRY MD Dec 13, 2017 20:50
--- NOTE | 2017-12-13 21:28 | PN ---
DATE: 12/11/2017 This is a late entry for 12/11/2017 and covers elements not covered in my initial note of 12/11/2017. I met with the patient in the evening. Previous night, the patient was whiny, tearful, somewhat scared and paranoid per nursing report. During the day on 12/11/2017, she has been somewhat euphoric, grandiose, hyperverbal at times, certainly confused. REVIEW OF SYSTEMS: Ambulation impaired, in wheelchair. No CV, , pulmonary, eye, ENT system symptoms on review. Reliability poor. MENTAL STATUS EXAM: Oriented to herself. Insight, judgment, recent and remote memory, attention, concentration, fund of knowledge poor, consistent with her diagnosis as mentioned in my initial note. PLAN: Increase the 1500 hours Seroquel from 25 mg to 37.5 mg. Continue rest unchanged. MAN Sheila CHERRY MD DR: WILLIAM/erica JOB#: [id number] / [id number]
--- NOTE | 2017-12-13 21:34 | PN ---
DATE: 12/10/2017 This late entry 12/10/2017 covers elements not covered in my initial note 12/10/2017. Met with the patient in the evening. The previous night, the patient was quite anxious, restless, confused, up and down in a bed, swinging at staff members anyone around her. She was up most of the nights, went to bed at 4:00 a.m. Has been up and about during the day on 12/10/2017, doing a little better. UA has been completed. REVIEW OF SYSTEMS: Ambulation impaired, in wheelchair. No CV, , pulmonary, eye, ENT system symptoms on review. Reliability poor. MENTAL STATUS EXAM: Oriented to herself. Insight, judgment, recent and remote memory, attention, concentration, fund of knowledge poor, consistent with her diagnosis mentioned in my initial note. PLAN: Continue current psychotropics, Cymbalta 60 mg a day, Zyprexa p.r.n., Seroquel 12.5 mg at 1500, BuSpar 5 mg twice a day. Adjust as clinically indicated. DANE CHERRY MD DR: WILLIAM/erica JOB#: [id number] / [id number]
--- NOTE | 2017-12-14 03:46 | NUR ---
Nursing Note Patient in day room for shift assessment. Patient is alert and oriented to self only. Patient is very disorganized and non compliant with cares, meds and assessment. Patient is non compliant with medications during initial shift assessment. Patient making comments such as "Im going to kill you, Im going to kill all of you". Patient approached for second time when patient needed to go to the toilet. Patient was compliant and pleasant during second interaction with patient. Patient remains in bed at this time.
[2017-12-14 06:09] VITALS: BP 162/73
[2017-12-14] MEDS: DULoxetine HCL 60 MG CAPSULE.DR PO SCH (08:12)
[2017-12-14] MEDS: LISINOPRIL 5 MG TABLET. PO SCH (08:13)
[2017-12-14] MEDS: FUROSEMIDE 20 MG TABLET PO SCH (08:13)
[2017-12-14] MEDS: FAMOTIDINE 20 MG TABLET PO SCH (08:14)
[2017-12-14] MEDS: busPIRone 5 MG TABLET. PO SCH ×3 (08:14→20:09)
[2017-12-14] MEDS: METOPROLOL TART IMMED RELEASE 50 MG TABLET PO SCH ×2 (08:14→20:10)
[2017-12-14] MEDS: CYANOCOBALAMIN (VITAMIN B-12) 1,000 MCG TABLET. PO SCH (08:14)
[2017-12-14] MEDS: metFORMIN 500 MG TABLET PO SCH ×2 (08:14→18:00)
[2017-12-14] MEDS: CHOLECALCIFEROL (VITAMIN D3) 1,000 UNIT TABLET PO SCH (08:14)
[2017-12-14] MEDS: MULTIVITAMIN with MINERAL TABLET. PO SCH (08:14)
[2017-12-14] MEDS: CLOPIDOGREL BISULFATE 75 MG TABLET PO SCH (08:14)
[2017-12-14] MEDS: PANTOPRAZOLE 40 MG TABLET. PO SCH (08:14)
[2017-12-14] MEDS: FLUTICASONE 50MCG/NASAL SPRAY 16GM BOTTLE. NS SCH (08:15)
[2017-12-14] MEDS: INSULIN LISPRO 300 UNITS/3 ML INSULN.PEN. SQ SCH ×3 (08:16→17:58)
--- NOTE | 2017-12-14 09:47 | PN ---
DATE: 12/12/2017 This is a late entry for 12/12/2017 and covers elements not covered in my initial note of 12/12/2017. I met with the patient in the evening. Overall, the patient did well the previous evening, fairly cooperative, but confused, somewhat anxious. REVIEW OF SYSTEMS: Ambulation impaired, in wheelchair. No CV, , pulmonary, eye, ENT system symptoms on review. Reliability poor. MENTAL STATUS EXAM: Oriented to herself. Insight, judgment, recent and remote memory, attention, concentration, fund of knowledge poor, consistent with her diagnosis as mentioned in my initial note. PLAN: Continue psychotropics from initial note. Adjust as clinically indicated. DANE CHERRY MD DR: WILLIAM/erica JOB#: [id number] / [id number]
--- NOTE | 2017-12-14 09:56 | NUR ---
SW faxed updated clinicals to pt's facility.
--- NOTE | 2017-12-14 11:27 | NUR ---
Behavior Intervention Response and Plan: BIRP Note: Behavior: Assumed Care of patient, patient located in Dining Room at shift change. Patient exhibited the following behavior Disorganized, Resistive, Irritable. Brief assessment on rounds of vital signs, medication needs, lab studies, and pain. Treatment plan problems 1-2. Intervention: Patient assessed and the following interventions initiated safety checks 15 Minute Checks Personal Alarm in place , Cognitive Assessment , Head to toe Assessment. Response: After interactions and interventions patient responded in the following manner, Disorganized , Restless ,Irritable. Continue to assess behaviors and condition will continue to monitor throughout the shift as needed. Patient educated on ADL's, and hand hygiene. Plan: Continue to monitor Master Treatment Plan for patient's progress toward short term goals of Medication Compliance, Improved Mood, half-way goals to return to previous living setting vs placement. Continue to assess patient for changes in above assessment. Monitor for medication needs, pain, and safety concerns. Hourly rounding performed to ensure safe environment.
[2017-12-14] MEDS: QUEtiapine 25 MG TABLET. PO SCH (15:53)
--- NOTE | 2017-12-14 16:35 | NUR ---
Dr. Granados will be removing patrick from pt's head on 12/15. Dr. Granados will be calling [facility] once he arrives on . At that time, pt is to be given a PRN and a shower.
[2017-12-14 16:55] VITALS: BP 162/81
[2017-12-14] MEDS: ATORVASTATIN CALCIUM 10 MG TABLET. PO SCH (20:09)
[2017-12-14] MEDS: INSULIN GLARGINE 300 UNITS/3 ML INSULN.PEN. SQ SCH (20:18)
--- NOTE | 2017-12-14 20:53 | PDOC ---
Exam Note: Zaid Note: Please also refer to the separate dictated note~for this date of service dictated separately.~Patient seen individually. Discussed the patient with Nursing staff reviewed the chart.~Reviewed interim history and current functioning. Reviewed vital signs,~Labs/ Radiology~and current medications noted below. Continue current treatment with the changes noted in the dictated addendum note Assessment: Vital Signs: Vital Signs Date Time Temp Pulse Resp B/P (MAP) Pulse Ox O2 Delivery O2 Flow Rate FiO2 12/14/17 20:10 66 162/81 12/14/17 16:55 98.0 18 99 12/13/17 16:38 Room Air I&O Intake and Output 12/14/17 07:00 Intake Total 600 ml Balance 600 ml Intake Oral 600 ml # Bowel Movements 1 Labs: Laboratory Tests Test 12/14/17 07:16 12/14/17 11:41 12/14/17 16:58 12/14/17 19:01 Glucose (Fingerstick) 132 mg/dL (70-99) H 317 mg/dL (70-99) H 269 mg/dL (70-99) H 287 mg/dL (70-99) H Current Medications: Meds: Current Medications Acetaminophen (Tylenol) 650 mg PRN Q6HRS PRN PO MILD PAIN / TEMP Last administered on 12/04/17at 20:04; Start 12/04/17 at 02:45 Multi-Ingredient Ointment (Analgesic [place]) 1 paige PRN QID PRN TP MUSCLE PAIN; Start 12/04/17 at 02:45 Al Hydroxide/Mg Hydroxide (Mylanta Plus Xs) 15 ml PRN AFTMEALHC PRN PO DYSPEPSIA; Start 12/04/17 at 02:45 Magnesium Hydroxide (Milk Of Magnesia) 2,400 mg PRN QHS PRN PO CONSTIPATION; Start 12/04/17 at 02:45 Duloxetine HCl (Cymbalta) 60 mg DAILY PO Last administered on 12/14/17at 08:12; Start 12/04/17 at 09:00 Dextrose 12.5 gm PRN Q15MIN PRN IV SEE COMMENTS; Start 12/04/17 at 02:45 Vitamin D (Vitamin D3) 1,000 unit DAILY PO Last administered on 12/14/17at 08:14 ; Start 12/04/17 at 09:00 Clopidogrel Bisulfate (Plavix) 75 mg DAILY PO Last administered on 12/14/17 08: 14; Start 12/04/17 at 09:00 Cyanocobalamin (Vitamin B-12) 1,000 mcg DAILY PO Last administered on 12/14/17 08:14; Start 12/04/17 at 09:00 Furosemide (Lasix) 10 mg DAILY PO Last administered on 12/14/17 08:13; Start at 09:00 Insulin Glargine (Lantus) 10 units QHS SQ Last administered on 12/04/17 20:00 ; Start 12/04/17 at 21:00; Stop 12/05/17 at 15:57; Status DC Insulin Human Lispro (HumaLOG) 5 units TIDWMEALS SQ Last administered on 12:06; Start 12/04/17 at 08:00; Stop 12/05/17 at 15:57; Status DC Lisinopril (Prinivil) 5 mg DAILY PO Last administered on 12/14/17 08:13; Start 12/04/17 at 09:00 Atorvastatin Calcium (Lipitor) 10 mg QHS PO Last administered on 12/14/17 20:09 ; Start 12/04/17 at 21:00 Docusate Sodium (Colace) 100 mg PRN DAILY PRN PO CONSTIPATION; Start 12/04/17 at 03:00 Famotidine (Pepcid) 20 mg DAILY PO Last administered on 12/14/17 08:14; Start 12/04/17 at 09:00 Non-Formulary Medication (Famotidine/Ca Carb/Mag Hydrox (Tums Dual Action Tablet Chew)) 1,000 mg DAILY PO ; Start 12/04/17 at 09:00; Status UNV Fluticasone Propionate (Flonase) 2 spray DAILY NS Last administered on 08:15; Start 12/04/17 at 09:00 Acetaminophen/ Hydrocodone Bitart (Lortab 5/325) 1 tab PRN Q6HRS PRN PO PAIN Last administered on 12/11/17at 10:50; Start 12/04/17 at 03:00 Lidocaine (Lidoderm) 1 patch PRN DAILY PRN TD PAIN; Start 12/04/17 at 09:00 Metformin HCl (Glucophage) 500 mg BIDWMEALS PO Last administered on 12/14/17at 18 :00; Start 12/04/17 at 08:00 Multivitamins/ Calcium (Thera-M Plus) 1 tab DAILY PO Last administered on at 08:14; Start 12/04/17 at 09:00 Non-Formulary Medication (Nebivolol Hcl (Bystolic)) 5 mg BID PO ; Start at 09:00; Stop 12/04/17 at 09:00; Status DC Pantoprazole Sodium (Protonix) 40 mg DAILYAC PO Last administered on 12/14/17at 08:14; Start 12/04/17 at 07:30 Artificial Tears (Artificial Tears) 1 drop PRN QID PRN OU DRY EYE; Start at 03:00 Metoprolol Tartrate (Lopressor) 50 mg BID PO Last administered on 12/14/17 20: 10; Start 12/04/17 at 09:00 Insulin Human Lispro (HumaLOG) 9 units 1X ONCE SQ Last administered on at 12:24; Start 12/04/17 at 12:15; Stop 12/04/17 at 12:16; Status DC Insulin Glargine (Lantus) 15 units QHS SQ Last administered on 12/14/17 20:18; Start 12/05/17 at 21:00 Insulin Human Lispro (HumaLOG) 7 units TIDWMEALS SQ Last administered on at 17:58; Start 12/05/17 at 17:00 Olanzapine (ZyPREXA ZYDIS) 2.5 mg PRN Q2HR PRN PO PSYCHOSIS Last administered on 12/13/17 16:50; Start 12/05/17 at 18:15 Buspirone HCl (Buspar) 5 mg BID PO Last administered on 12/12/17 20:41; Start 12/06/17 at 09:00; Stop 12/12/17 at 23:53; Status DC Quetiapine Fumarate (SEROquel) 12.5 mg DAILY@1500 PO Last administered on at 15:25; Start 12/08/17 at 15:00; Stop 12/10/17 at 15:00; Status DC Quetiapine Fumarate (SEROquel) 25 mg DAILY@1500 PO Last administered on at 15:09; Start 12/10/17 at 15:00; Stop 12/11/17 at 18:07; Status DC Quetiapine Fumarate (SEROquel) 37.5 mg DAILY@1500 PO Last administered on at 15:53; Start 12/12/17 at 15:00; Stop 12/14/17 at 18:47; Status DC Buspirone HCl (Buspar) 5 mg BID@0900,1300 PO Last administered on 12/13/17at 13: 17; Start 12/13/17 at 09:00; Stop 12/13/17 at 19:17; Status DC Buspirone HCl (Buspar) 5 mg TID PO Last administered on 12/14/17at 20:09; Start 12/13/17 at 21:00 Quetiapine Fumarate (SEROquel) 50 mg DAILY@1500 PO ; Start 12/15/17 at 15:00 Active Scripts Active Reported Vitamin D3 (Cholecalciferol (Vitamin D3)) 1,000 Unit Tablet 1,000 Unit PO DAILY Clopidogrel (Clopidogrel Bisulfate) 75 Mg Tablet 75 Mg PO DAILY Flonase Sensimist (Fluticasone Furoate) 9.9 Ml [place].susp 2 Sprays NS DAILY Docusate Sodium 250 Mg Capsule 250 Mg PO PRN DAILY PRN Tums Dual Action Tablet Chew (Famotidine/Ca Carb/Mag Hydrox) 1 Each Tab.chew 1, 000 Mg PO DAILY Vitamin B-12 (Cyanocobalamin (Vitamin B-12)) 1,000 Mcg Tablet 1,000 Mcg PO DAILY Multivitamins (Multivitamin) 1 Each Tablet 1 Tab PO DAILY Furosemide 20 Mg Tablet 10 Mg PO DAILY Bystolic (Nebivolol Hcl) 5 Mg Tablet 5 Mg PO BID Zestril (Lisinopril) 5 Mg Tablet 5 Mg PO DAILY Acetaminophen 325 Mg Tablet 650 Mg PO PRN Q8HRS PRN Lidocaine 1 Each Adh..patch 1 Patch TP PRN DAILY PRN [place] 5-325 Tablet (Hydrocodone Bit/Acetaminophen) 1 Each Tablet 1 Tab PO PRN Q6HRS PRN Lipitor (Atorvastatin Calcium) 10 Mg Tablet 10 Mg PO QHS Lantus Solostar (Insulin Glargine,Hum.rec.anlog) 100 Unit/1 Ml Insuln.pen 10 Unit SQ QHS Pepcid (Famotidine) 20 Mg Tablet 20 Mg PO DAILY Pantoprazole Sodium 40 Mg Tablet.dr 40 Mg PO DAILY Milk Of Magnesia (Magnesium Hydroxide) 2,400 Mg/10 Ml Oral.susp 10 Ml PO PRN DAILY PRN Systane 0.3-0.4% Eye Drops (Propylene Glycol/Peg 400) 15 Ml Drops 1 Drop EACHEYE QID PRN Metformin Hcl 500 Mg Tablet 500 Mg PO BIDWMEALS Cymbalta (Duloxetine Hcl) 60 Mg Capsule.dr 60 Mg PO DAILY Humalog (Insulin Lispro) 100 Unit/1 Ml Insuln.pen 5 Unit SQ TIDWMEALS I have reviewed the current psychotropics carefully including drug interactions. Risk benefit ratio favors no change other than as noted in my dictated progress note. Diagnosis: Problems: (1) Anxiety disorder (2) Dementia in Alzheimer's disease with delusions (3) Dementia in Alzheimer's disease with depression (4) Dementia, vascular, with delusions (5) Dementia, vascular, with depression (6) Impulse control disorder DANE CHERRY MD Dec 14, 2017 20:53
--- NOTE | 2017-12-14 21:21 | PN ---
DATE: 12/13/2017 This is a late entry, 12/13/2017, covers the elements not covered in my initial note, 12/13/2017. SUBJECTIVE: I met with the patient in the evening. The patient remains confused, has been tearful at times, appears somewhat sad, anxious. REVIEW OF SYSTEMS: Ambulation impaired, in a wheelchair. No CV, , pulmonary, eye, ENT system symptoms on review. MENTAL STATUS EXAM: Oriented to herself. Insight, judgment, recent and remote memory, attention, concentration, fund of knowledge poor, consistent with her diagnosis. She is unable to do serial sevens, unaware of the year, month or date or where she is, able to remember 0 of 3 objects at 3 minutes. IMPRESSION: Unchanged from initial note. PLAN: Continue psychotropics as mentioned in my initial note. Increase BuSpar to 5 mg 3 times a day, may need to increase Cymbalta, but given her age, 60 mg adequate for now. MAN Sheila CHERRY MD DR: WILLIAM/erica JOB#: [id number] / [id number]
--- NOTE | 2017-12-14 23:45 | NUR ---
Nursing Note Patient found in day room sitting in wheel chair looking out north entry door. Patient is calm and compliant with assessment and medications during initial interaction. Patient is alert and oriented to self only. Patient is very pleasant and interactive during encounter. Patient resting in bed at this time.
[2017-12-15 06:31] VITALS: BP 132/54
[2017-12-15] MEDS: CYANOCOBALAMIN (VITAMIN B-12) 1,000 MCG TABLET. PO SCH (08:59)
[2017-12-15] MEDS: metFORMIN 500 MG TABLET PO SCH ×2 (08:59→17:14)
[2017-12-15] MEDS: PANTOPRAZOLE 40 MG TABLET. PO SCH (08:59)
[2017-12-15] MEDS: FAMOTIDINE 20 MG TABLET PO SCH (08:59)
[2017-12-15] MEDS: MULTIVITAMIN with MINERAL TABLET. PO SCH (09:00)
[2017-12-15] MEDS: LISINOPRIL 5 MG TABLET. PO SCH (09:00)
[2017-12-15] MEDS: FUROSEMIDE 20 MG TABLET PO SCH (09:00)
[2017-12-15] MEDS: CHOLECALCIFEROL (VITAMIN D3) 1,000 UNIT TABLET PO SCH (09:00)
[2017-12-15] MEDS: METOPROLOL TART IMMED RELEASE 50 MG TABLET PO SCH ×2 (09:00→21:00)
[2017-12-15] MEDS: busPIRone 5 MG TABLET. PO SCH ×2 (09:01→14:16)
[2017-12-15] MEDS: CLOPIDOGREL BISULFATE 75 MG TABLET PO SCH (09:01)
[2017-12-15] MEDS: FLUTICASONE 50MCG/NASAL SPRAY 16GM BOTTLE. NS SCH (09:01)
[2017-12-15] MEDS: DULoxetine HCL 60 MG CAPSULE.DR PO SCH (09:01)
[2017-12-15] MEDS: INSULIN LISPRO 300 UNITS/3 ML INSULN.PEN. SQ SCH ×3 (09:02→17:37)
--- NOTE | 2017-12-15 11:08 | NUR ---
SW received call from pt's dtr-in-law/dpMala angel w/concerns regarding pt's length of stay and lack of availability to visit pt due to scheduling conflicts w/visiting hours. VLAD was able to make alternative arrangements w/visiting hours to accommodate Mala's schedule and to allow her dtr to visit from [place]. SW also provide education on current medication changes and reviewed nursing notes on behaviors and recent improvements. Mala was very appreciative of the information and requested SW to follow up after Treatment Team w/a target dc date.
--- NOTE | 2017-12-15 11:21 | PN ---
DATE: 12/14/2017 PSYCHIATRIC PROGRESS NOTE This is a late entry 12/14/2017, covers elements not covered in my initial note 12/14/2017. SUBJECTIVE: I met with the patient in the evening. The patient agitated at around 7:00 p.m. the previous evening, refused her medications, yelling out "kill you" and then went to bed and then woke up and was much better. During the day on 12/14/2017 she has been doing better, remains confused. Anxiety, agitation, mood lability worsens in the evening. REVIEW OF SYSTEMS: Ambulation impaired, in wheelchair. No CV, , pulmonary, eye, ENT system symptoms on review. MENTAL STATUS EXAM: Oriented to herself. Insight, judgment, recent and remote memory, attention, concentration, fund of knowledge poor, consistent with her diagnoses mentioned in my initial note. PLAN: Continue current psychotropics from initial note. Increase Seroquel from 37.5 mg . MAN Sheila CHERRY MD DR: WILLIAM/erica JOB#: [id number] / [id number]
[2017-12-15] MEDS: HYDROcodone/APAP 5/325MG 1 TAB TABLET PO PRN (14:16)
[2017-12-15] MEDS: QUEtiapine 50 MG TABLET. PO SCH (14:16)
--- NOTE | 2017-12-15 14:19 | NUR ---
Patient scheduled to get patrick out, pre-medicated with zyprexa 2.5 PRN and Hydrocodone/APAP 5mg/325mg per Dr. Granados request.
--- NOTE | 2017-12-15 15:00 | NUR ---
WEEKLY THERAPEUTIC RECREATION NOTE Date of Admission: 12/04/2017 Date of AT Assessment: 12/08/2017 Goal aimed: to increase stimulation and socialization Initial goal: Pt. will participate in at least two groups a day Weekly progress towards goal: achieved Group participation level: Moderate. Behaviors observed: Spends times in groups, speaking to staff, or just sitting quietly and watching. Tearful on Wednesday Plan: No change to goal
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
[2017-12-15 16:16] VITALS: BP 139/78
--- NOTE | 2017-12-15 16:45 | NUR ---
Patient at nurses station yelling for 30 minutes and blaming everyone for his problems. We've "taken everything away from him". Demanding his cell phone, wallet and keys because he wants to leave. Patient continued to argue with everything staff said, blaming others for everything. Denies having any problems, became agitated and was gesturing with hands and stomping in hallway. Continued to say "I can't live this way, I'll probably have a heart attack, I just want my cell phone". Continues to blame staff for keeping him here against his will, when informed that it was his son, EMI, that "put him here" he stated that he would go away where they can't find him. Denies having any memory of the events that brought him here, PD being called and going to [facility]. Addendum: 12/15/17 at 1651 by HUYEN MONTEMAYOR RN wrong patient
--- NOTE | 2017-12-15 18:38 | NUR ---
Meredith on back of head removed by Dr. Granados without complication. Sutures on right side not ready to be removed d/t swelling, will schedule for 4-5 days from now per Dr. Granados order.
--- NOTE | 2017-12-15 20:48 | PDOC ---
Exam Note: Zaid Note: Please also refer to the separate dictated note~for this date of service dictated separately.~Patient seen individually. Discussed the patient with Nursing staff reviewed the chart.~Reviewed interim history and current functioning. Reviewed vital signs,~Labs/ Radiology~and current medications noted below. Continue current treatment with the changes noted in the dictated addendum note Assessment: Vital Signs: Vital Signs Date Time Temp Pulse Resp B/P (MAP) Pulse Ox O2 Delivery O2 Flow Rate FiO2 12/15/17 16:16 97.5 66 18 139/78 (98) 100 12/13/17 16:38 Room Air I&O Intake and Output 12/15/17 07:00 Intake Total 1320 ml Balance 1320 ml Intake Oral 1320 ml Labs: Laboratory Tests Test 12/15/17 07:25 12/15/17 12:04 12/15/17 16:34 12/15/17 19:15 Glucose (Fingerstick) 100 mg/dL (70-99) H 252 mg/dL (70-99) H 291 mg/dL (70-99) H 180 mg/dL (70-99) H Current Medications: Meds: Current Medications Acetaminophen (Tylenol) 650 mg PRN Q6HRS PRN PO MILD PAIN / TEMP Last administered on 12/04/17at 20:04; Start 12/04/17 at 02:45 Multi-Ingredient Ointment (Analgesic [place]) 1 paige PRN QID PRN TP MUSCLE PAIN; Start 12/04/17 at 02:45 Al Hydroxide/Mg Hydroxide (Mylanta Plus Xs) 15 ml PRN AFTMEALHC PRN PO DYSPEPSIA; Start 12/04/17 at 02:45 Magnesium Hydroxide (Milk Of Magnesia) 2,400 mg PRN QHS PRN PO CONSTIPATION; Start 12/04/17 at 02:45 Duloxetine HCl (Cymbalta) 60 mg DAILY PO Last administered on 12/15/17at 09:01; Start 12/04/17 at 09:00 Dextrose 12.5 gm PRN Q15MIN PRN IV SEE COMMENTS; Start 12/04/17 at 02:45 Vitamin D (Vitamin D3) 1,000 unit DAILY PO Last administered on 12/15/17at 09:00 ; Start 12/04/17 at 09:00 Clopidogrel Bisulfate (Plavix) 75 mg DAILY PO Last administered on 12/15/17 09: 01; Start 12/04/17 at 09:00 Cyanocobalamin (Vitamin B-12) 1,000 mcg DAILY PO Last administered on 12/15/17 08:59; Start 12/04/17 at 09:00 Furosemide (Lasix) 10 mg DAILY PO Last administered on 12/15/17 09:00; Start at 09:00 Insulin Glargine (Lantus) 10 units QHS SQ Last administered on 12/04/17 20:00 ; Start 12/04/17 at 21:00; Stop 12/05/17 at 15:57; Status DC Insulin Human Lispro (HumaLOG) 5 units TIDWMEALS SQ Last administered on 12:06; Start 12/04/17 at 08:00; Stop 12/05/17 at 15:57; Status DC Lisinopril (Prinivil) 5 mg DAILY PO Last administered on 12/15/17 09:00; Start 12/04/17 at 09:00 Atorvastatin Calcium (Lipitor) 10 mg QHS PO Last administered on 12/14/17 20:09 ; Start 12/04/17 at 21:00 Docusate Sodium (Colace) 100 mg PRN DAILY PRN PO CONSTIPATION; Start 12/04/17 at 03:00 Famotidine (Pepcid) 20 mg DAILY PO Last administered on 12/15/17 08:59; Start 12/04/17 at 09:00 Non-Formulary Medication (Famotidine/Ca Carb/Mag Hydrox (Tums Dual Action Tablet Chew)) 1,000 mg DAILY PO ; Start 12/04/17 at 09:00; Status UNV Fluticasone Propionate (Flonase) 2 spray DAILY NS Last administered on 09:01; Start 12/04/17 at 09:00 Acetaminophen/ Hydrocodone Bitart (Lortab 5/325) 1 tab PRN Q6HRS PRN PO PAIN Last administered on 12/15/17 14:16; Start 12/04/17 at 03:00 Lidocaine (Lidoderm) 1 patch PRN DAILY PRN TD PAIN; Start 12/04/17 at 09:00 Metformin HCl (Glucophage) 500 mg BIDWMEALS PO Last administered on 12/15/17at 08 :59; Start 12/04/17 at 08:00 Multivitamins/ Calcium (Thera-M Plus) 1 tab DAILY PO Last administered on at 09:00; Start 12/04/17 at 09:00 Non-Formulary Medication (Nebivolol Hcl (Bystolic)) 5 mg BID PO ; Start at 09:00; Stop 12/04/17 at 09:00; Status DC Pantoprazole Sodium (Protonix) 40 mg DAILYAC PO Last administered on 12/15/17at 08:59; Start 12/04/17 at 07:30 Artificial Tears (Artificial Tears) 1 drop PRN QID PRN OU DRY EYE; Start at 03:00 Metoprolol Tartrate (Lopressor) 50 mg BID PO Last administered on 12/15/17at 09: 00; Start 12/04/17 at 09:00 Insulin Human Lispro (HumaLOG) 9 units 1X ONCE SQ Last administered on at 12:24; Start 12/04/17 at 12:15; Stop 12/04/17 at 12:16; Status DC Insulin Glargine (Lantus) 15 units QHS SQ Last administered on 12/14/17 20:18; Start 12/05/17 at 21:00 Insulin Human Lispro (HumaLOG) 7 units TIDWMEALS SQ Last administered on at 17:37; Start 12/05/17 at 17:00 Olanzapine (ZyPREXA ZYDIS) 2.5 mg PRN Q2HR PRN PO PSYCHOSIS Last administered on 12/15/17at 14:16; Start 12/05/17 at 18:15 Buspirone HCl (Buspar) 5 mg BID PO Last administered on 12/12/17at 20:41; Start 12/06/17 at 09:00; Stop 12/12/17 at 23:53; Status DC Quetiapine Fumarate (SEROquel) 12.5 mg DAILY@1500 PO Last administered on at 15:25; Start 12/08/17 at 15:00; Stop 12/10/17 at 15:00; Status DC Quetiapine Fumarate (SEROquel) 25 mg DAILY@1500 PO Last administered on at 15:09; Start 12/10/17 at 15:00; Stop 12/11/17 at 18:07; Status DC Quetiapine Fumarate (SEROquel) 37.5 mg DAILY@1500 PO Last administered on at 15:53; Start 12/12/17 at 15:00; Stop 12/14/17 at 18:47; Status DC Buspirone HCl (Buspar) 5 mg BID@0900,1300 PO Last administered on 12/13/17at 13: 17; Start 12/13/17 at 09:00; Stop 12/13/17 at 19:17; Status DC Buspirone HCl (Buspar) 5 mg TID PO Last administered on 12/15/17at 14:16; Start 12/13/17 at 21:00; Stop 12/15/17 at 18:33; Status DC Quetiapine Fumarate (SEROquel) 50 mg DAILY@1500 PO Last administered on at 14:16; Start 12/15/17 at 15:00 Buspirone HCl (Buspar) 10 mg BID@0900,1700 PO ; Start 12/16/17 at 09:00 Active Scripts Active Reported Vitamin D3 (Cholecalciferol (Vitamin D3)) 1,000 Unit Tablet 1,000 Unit PO DAILY Clopidogrel (Clopidogrel Bisulfate) 75 Mg Tablet 75 Mg PO DAILY Flonase Sensimist (Fluticasone Furoate) 9.9 Ml [place].susp 2 Sprays NS DAILY Docusate Sodium 250 Mg Capsule 250 Mg PO PRN DAILY PRN Tums Dual Action Tablet Chew (Famotidine/Ca Carb/Mag Hydrox) 1 Each Tab.chew 1, 000 Mg PO DAILY Vitamin B-12 (Cyanocobalamin (Vitamin B-12)) 1,000 Mcg Tablet 1,000 Mcg PO DAILY Multivitamins (Multivitamin) 1 Each Tablet 1 Tab PO DAILY Furosemide 20 Mg Tablet 10 Mg PO DAILY Bystolic (Nebivolol Hcl) 5 Mg Tablet 5 Mg PO BID Zestril (Lisinopril) 5 Mg Tablet 5 Mg PO DAILY Acetaminophen 325 Mg Tablet 650 Mg PO PRN Q8HRS PRN Lidocaine 1 Each Adh..patch 1 Patch TP PRN DAILY PRN [place] 5-325 Tablet (Hydrocodone Bit/Acetaminophen) 1 Each Tablet 1 Tab PO PRN Q6HRS PRN Lipitor (Atorvastatin Calcium) 10 Mg Tablet 10 Mg PO QHS Lantus Solostar (Insulin Glargine,Hum.rec.anlog) 100 Unit/1 Ml Insuln.pen 10 Unit SQ QHS Pepcid (Famotidine) 20 Mg Tablet 20 Mg PO DAILY Pantoprazole Sodium 40 Mg Tablet.dr 40 Mg PO DAILY Milk Of Magnesia (Magnesium Hydroxide) 2,400 Mg/10 Ml Oral.susp 10 Ml PO PRN DAILY PRN Systane 0.3-0.4% Eye Drops (Propylene Glycol/Peg 400) 15 Ml Drops 1 Drop EACHEYE QID PRN Metformin Hcl 500 Mg Tablet 500 Mg PO BIDWMEALS Cymbalta (Duloxetine Hcl) 60 Mg Capsule.dr 60 Mg PO DAILY Humalog (Insulin Lispro) 100 Unit/1 Ml Insuln.pen 5 Unit SQ TIDWMEALS I have reviewed the current psychotropics carefully including drug interactions. Risk benefit ratio favors no change other than as noted in my dictated progress note. Diagnosis: Problems: (1) Anxiety disorder (2) Dementia in Alzheimer's disease with delusions (3) Dementia in Alzheimer's disease with depression (4) Dementia, vascular, with delusions (5) Dementia, vascular, with depression (6) Impulse control disorder DANE CHERRY MD Dec 15, 2017 20:48
[2017-12-15 21:03] VITALS: BP 105/50
[2017-12-15] MEDS: ATORVASTATIN CALCIUM 10 MG TABLET. PO SCH (21:04)
[2017-12-15] MEDS: INSULIN GLARGINE 300 UNITS/3 ML INSULN.PEN. SQ SCH (21:06)
--- NOTE | 2017-12-15 21:56 | NUR ---
Nursing Note Patient found sleeping in patient room for shift assessment. Patient Has low blood pressure, BP medication held. Patient compliant with medications and assessment. Patient alert and oriented to self only at this time. Patient Currently in day room.
--- NOTE | 2017-12-16 00:59 | NUR ---
Nursing Note Patient refusing to wear CPAP mask. Patient educated on need for mask however patient repeatedly removes mask and asks this nurse to stop putting it back on. Patient sleeping in bed without CPAP currently.
[2017-12-16 06:29] VITALS: BP 137/71
[2017-12-16] MEDS: METOPROLOL TART IMMED RELEASE 50 MG TABLET PO SCH ×2 (08:41→19:39)
[2017-12-16] MEDS: CYANOCOBALAMIN (VITAMIN B-12) 1,000 MCG TABLET. PO SCH (08:41)
[2017-12-16] MEDS: DULoxetine HCL 60 MG CAPSULE.DR PO SCH (08:41)
[2017-12-16] MEDS: CHOLECALCIFEROL (VITAMIN D3) 1,000 UNIT TABLET PO SCH (08:41)
[2017-12-16] MEDS: CLOPIDOGREL BISULFATE 75 MG TABLET PO SCH (08:41)
[2017-12-16] MEDS: FAMOTIDINE 20 MG TABLET PO SCH (08:42)
[2017-12-16] MEDS: PANTOPRAZOLE 40 MG TABLET. PO SCH (08:42)
[2017-12-16] MEDS: busPIRone 10 MG TABLET. PO SCH ×2 (08:42→16:57)
[2017-12-16] MEDS: LISINOPRIL 5 MG TABLET. PO SCH (08:42)
[2017-12-16] MEDS: MULTIVITAMIN with MINERAL TABLET. PO SCH (08:42)
[2017-12-16] MEDS: metFORMIN 500 MG TABLET PO SCH ×2 (08:42→16:56)
[2017-12-16] MEDS: INSULIN LISPRO 300 UNITS/3 ML INSULN.PEN. SQ SCH ×3 (08:43→18:29)
[2017-12-16] MEDS: FLUTICASONE 50MCG/NASAL SPRAY 16GM BOTTLE. NS SCH (08:44)
[2017-12-16] MEDS: FUROSEMIDE 20 MG TABLET PO SCH (10:51)
[2017-12-16] MEDS ORDERED: INSULIN LISPRO 300 UNITS/3 ML INSULN.PEN. SQ ONE (11:30)
--- NOTE | 2017-12-16 12:47 | NUR ---
Nursing Note Pt is compliant and pleasant today cooperative with meds and assessment. Lunch blood sugar was 412, gave a total of 12 units of humalog for lunch meal. States "It's so nice to see you this place is amazing!"
[2017-12-16] MEDS: QUEtiapine 50 MG TABLET. PO SCH ×2 (14:50→16:56)
[2017-12-16 16:21] VITALS: BP 102/69
[2017-12-16] MEDS: ATORVASTATIN CALCIUM 10 MG TABLET. PO SCH (19:29)
[2017-12-16] MEDS: INSULIN GLARGINE 300 UNITS/3 ML INSULN.PEN. SQ SCH (19:32)
--- NOTE | 2017-12-16 20:50 | NUR ---
Behavior Intervention Response and Plan: BIRP Note: Behavior: Assumed Care of patient, patient located in Day Room at shift change. Patient exhibited the following behavior Calm, Cooperative, Social. Brief assessment on rounds of vital signs, medication needs, lab studies, and pain. Treatment plan problems 1-3. Intervention: Patient assessed and the following interventions initiated safety checks 15 Minute Checks Head to toe Assessment , Medications , ADL's. Response: After interactions and interventions patient responded in the following manner, Calm , Cooperative ,Compliant. Continue to assess behaviors and condition will continue to monitor throughout the shift as needed. Patient educated on ADL's, and hand hygiene. Plan: Continue to monitor Master Treatment Plan for patient's progress toward short term goals of Improved Mood, Medication Compliance, oil heaterman goals to return to previous living setting vs placement. Continue to assess patient for changes in above assessment. Monitor for medication needs, pain, and safety concerns. Hourly rounding performed to ensure safe environment.
--- NOTE | 2017-12-16 22:26 | PDOC ---
Exam Note: Zaid Note: Please also refer to the separate dictated note~for this date of service dictated separately.~Patient seen individually. Discussed the patient with Nursing staff reviewed the chart.~Reviewed interim history and current functioning. Reviewed vital signs,~Labs/ Radiology~and current medications noted below. Continue current treatment with the changes noted in the dictated addendum note Assessment: Vital Signs: Vital Signs Date Time Temp Pulse Resp B/P (MAP) Pulse Ox O2 Delivery O2 Flow Rate FiO2 12/16/17 19:39 88 102/69 12/16/17 16:21 97.6 20 100 Room Air I&O Intake and Output 12/16/17 07:00 Intake Total 660 ml Balance 660 ml Intake Oral 660 ml # Voids 1 Labs: Laboratory Tests Test 12/16/17 07:27 12/16/17 11:07 12/16/17 16:44 12/16/17 18:58 Glucose (Fingerstick) 154 mg/dL (70-99) H 412 mg/dL (70-99) H 232 mg/dL (70-99) H 384 mg/dL (70-99) H Current Medications: Meds: Current Medications Acetaminophen (Tylenol) 650 mg PRN Q6HRS PRN PO MILD PAIN / TEMP Last administered on 12/04/17at 20:04; Start 12/04/17 at 02:45 Multi-Ingredient Ointment (Analgesic [place]) 1 paige PRN QID PRN TP MUSCLE PAIN; Start 12/04/17 at 02:45 Al Hydroxide/Mg Hydroxide (Mylanta Plus Xs) 15 ml PRN AFTMEALHC PRN PO DYSPEPSIA; Start 12/04/17 at 02:45 Magnesium Hydroxide (Milk Of Magnesia) 2,400 mg PRN QHS PRN PO CONSTIPATION; Start 12/04/17 at 02:45 Duloxetine HCl (Cymbalta) 60 mg DAILY PO Last administered on 12/16/17at 08:41; Start 12/04/17 at 09:00 Dextrose 12.5 gm PRN Q15MIN PRN IV SEE COMMENTS; Start 12/04/17 at 02:45 Vitamin D (Vitamin D3) 1,000 unit DAILY PO Last administered on 12/16/17at 08:41 ; Start 12/04/17 at 09:00 Clopidogrel Bisulfate (Plavix) 75 mg DAILY PO Last administered on 12/16/17 08: 41; Start 12/04/17 at 09:00 Cyanocobalamin (Vitamin B-12) 1,000 mcg DAILY PO Last administered on 12/16/17 08:41; Start 12/04/17 at 09:00 Furosemide (Lasix) 10 mg DAILY PO Last administered on 12/16/17 10:51; Start at 09:00 Insulin Glargine (Lantus) 10 units QHS SQ Last administered on 12/04/17 20:00 ; Start 12/04/17 at 21:00; Stop 12/05/17 at 15:57; Status DC Insulin Human Lispro (HumaLOG) 5 units TIDWMEALS SQ Last administered on 12:06; Start 12/04/17 at 08:00; Stop 12/05/17 at 15:57; Status DC Lisinopril (Prinivil) 5 mg DAILY PO Last administered on 12/16/17 08:42; Start 12/04/17 at 09:00 Atorvastatin Calcium (Lipitor) 10 mg QHS PO Last administered on 12/16/17 19:29 ; Start 12/04/17 at 21:00 Docusate Sodium (Colace) 100 mg PRN DAILY PRN PO CONSTIPATION; Start 12/04/17 at 03:00 Famotidine (Pepcid) 20 mg DAILY PO Last administered on 12/16/17 08:42; Start 12/04/17 at 09:00 Non-Formulary Medication (Famotidine/Ca Carb/Mag Hydrox (Tums Dual Action Tablet Chew)) 1,000 mg DAILY PO ; Start 12/04/17 at 09:00; Status UNV Fluticasone Propionate (Flonase) 2 spray DAILY NS Last administered on 08:44; Start 12/04/17 at 09:00 Acetaminophen/ Hydrocodone Bitart (Lortab 5/325) 1 tab PRN Q6HRS PRN PO PAIN Last administered on 12/15/17 14:16; Start 12/04/17 at 03:00 Lidocaine (Lidoderm) 1 patch PRN DAILY PRN TD PAIN; Start 12/04/17 at 09:00 Metformin HCl (Glucophage) 500 mg BIDWMEALS PO Last administered on 12/16/17 16 :56; Start 12/04/17 at 08:00 Multivitamins/ Calcium (Thera-M Plus) 1 tab DAILY PO Last administered on 08:42; Start 12/04/17 at 09:00 Non-Formulary Medication (Nebivolol Hcl (Bystolic)) 5 mg BID PO ; Start at 09:00; Stop 12/04/17 at 09:00; Status DC Pantoprazole Sodium (Protonix) 40 mg DAILYAC PO Last administered on 12/16/17 08:42; Start 12/04/17 at 07:30 Artificial Tears (Artificial Tears) 1 drop PRN QID PRN OU DRY EYE; Start at 03:00 Metoprolol Tartrate (Lopressor) 50 mg BID PO Last administered on 12/16/17 08: 41; Start 12/04/17 at 09:00 Insulin Human Lispro (HumaLOG) 9 units 1X ONCE SQ Last administered on at 12:24; Start 12/04/17 at 12:15; Stop 12/04/17 at 12:16; Status DC Insulin Glargine (Lantus) 15 units QHS SQ Last administered on 12/16/17 19:32; Start 12/05/17 at 21:00 Insulin Human Lispro (HumaLOG) 7 units TIDWMEALS SQ Last administered on 18:29; Start 12/05/17 at 17:00 Olanzapine (ZyPREXA ZYDIS) 2.5 mg PRN Q2HR PRN PO PSYCHOSIS Last administered on 12/16/17 19:29; Start 12/05/17 at 18:15 Buspirone HCl (Buspar) 5 mg BID PO Last administered on 12/12/17at 20:41; Start 12/06/17 at 09:00; Stop 12/12/17 at 23:53; Status DC Quetiapine Fumarate (SEROquel) 12.5 mg DAILY@1500 PO Last administered on at 15:25; Start 12/08/17 at 15:00; Stop 12/10/17 at 15:00; Status DC Quetiapine Fumarate (SEROquel) 25 mg DAILY@1500 PO Last administered on at 15:09; Start 12/10/17 at 15:00; Stop 12/11/17 at 18:07; Status DC Quetiapine Fumarate (SEROquel) 37.5 mg DAILY@1500 PO Last administered on at 15:53; Start 12/12/17 at 15:00; Stop 12/14/17 at 18:47; Status DC Buspirone HCl (Buspar) 5 mg BID@0900,1300 PO Last administered on 12/13/17at 13: 17; Start 12/13/17 at 09:00; Stop 12/13/17 at 19:17; Status DC Buspirone HCl (Buspar) 5 mg TID PO Last administered on 12/15/17at 14:16; Start 12/13/17 at 21:00; Stop 12/15/17 at 18:33; Status DC Quetiapine Fumarate (SEROquel) 50 mg DAILY@1500 PO Last administered on at 14:50; Start 12/15/17 at 15:00 Buspirone HCl (Buspar) 10 mg BID@0900,1700 PO Last administered on 12/16/17at 16: 57; Start 12/16/17 at 09:00 Insulin Human Lispro (HumaLOG) 12 units 1X ONCE SQ Last administered on at 11:36; Start 12/16/17 at 11:30; Stop 12/16/17 at 11:32; Status DC Quetiapine Fumarate (SEROquel) 25 mg NOON PO ; Start 12/17/17 at 12:00 Active Scripts Active Reported Vitamin D3 (Cholecalciferol (Vitamin D3)) 1,000 Unit Tablet 1,000 Unit PO DAILY Clopidogrel (Clopidogrel Bisulfate) 75 Mg Tablet 75 Mg PO DAILY Flonase Sensimist (Fluticasone Furoate) 9.9 Ml [place].susp 2 Sprays NS DAILY Docusate Sodium 250 Mg Capsule 250 Mg PO PRN DAILY PRN Tums Dual Action Tablet Chew (Famotidine/Ca Carb/Mag Hydrox) 1 Each Tab.chew 1, 000 Mg PO DAILY Vitamin B-12 (Cyanocobalamin (Vitamin B-12)) 1,000 Mcg Tablet 1,000 Mcg PO DAILY Multivitamins (Multivitamin) 1 Each Tablet 1 Tab PO DAILY Furosemide 20 Mg Tablet 10 Mg PO DAILY Bystolic (Nebivolol Hcl) 5 Mg Tablet 5 Mg PO BID Zestril (Lisinopril) 5 Mg Tablet 5 Mg PO DAILY Acetaminophen 325 Mg Tablet 650 Mg PO PRN Q8HRS PRN Lidocaine 1 Each Adh..patch 1 Patch TP PRN DAILY PRN [place] 5-325 Tablet (Hydrocodone Bit/Acetaminophen) 1 Each Tablet 1 Tab PO PRN Q6HRS PRN Lipitor (Atorvastatin Calcium) 10 Mg Tablet 10 Mg PO QHS Lantus Solostar (Insulin Glargine,Hum.rec.anlog) 100 Unit/1 Ml Insuln.pen 10 Unit SQ QHS Pepcid (Famotidine) 20 Mg Tablet 20 Mg PO DAILY Pantoprazole Sodium 40 Mg Tablet. 40 Mg PO DAILY Milk Of Magnesia (Magnesium Hydroxide) 2,400 Mg/10 Ml Oral.susp 10 Ml PO PRN DAILY PRN Systane 0.3-0.4% Eye Drops (Propylene Glycol/Peg 400) 15 Ml Drops 1 Drop EACHEYE QID PRN Metformin Hcl 500 Mg Tablet 500 Mg PO BIDWMEALS Cymbalta (Duloxetine Hcl) 60 Mg Capsule.dr 60 Mg PO DAILY Humalog (Insulin Lispro) 100 Unit/1 Ml Insuln.pen 5 Unit SQ TIDWMEALS I have reviewed the current psychotropics carefully including drug interactions. Risk benefit ratio favors no change other than as noted in my dictated progress note. Diagnosis: Problems: (1) Anxiety disorder (2) Dementia in Alzheimer's disease with delusions (3) Dementia in Alzheimer's disease with depression (4) Dementia, vascular, with delusions (5) Dementia, vascular, with depression (6) Impulse control disorder DANE CHERRY MD Dec 16, 2017 22:26
[2017-12-17 05:47] VITALS: BP 139/56
[2017-12-17] MEDS: FAMOTIDINE 20 MG TABLET PO SCH (08:16)
[2017-12-17] MEDS: DULoxetine HCL 60 MG CAPSULE.DR PO SCH (08:16)
[2017-12-17] MEDS: busPIRone 10 MG TABLET. PO SCH ×2 (08:16→17:43)
[2017-12-17] MEDS: FUROSEMIDE 20 MG TABLET PO SCH (08:18)
[2017-12-17] MEDS: PANTOPRAZOLE 40 MG TABLET. PO SCH (08:18)
[2017-12-17] MEDS: METOPROLOL TART IMMED RELEASE 50 MG TABLET PO SCH ×2 (08:18→20:00)
[2017-12-17] MEDS: MULTIVITAMIN with MINERAL TABLET. PO SCH (08:18)
[2017-12-17] MEDS: CHOLECALCIFEROL (VITAMIN D3) 1,000 UNIT TABLET PO SCH (08:18)
[2017-12-17] MEDS: LISINOPRIL 5 MG TABLET. PO SCH (08:19)
[2017-12-17] MEDS: CYANOCOBALAMIN (VITAMIN B-12) 1,000 MCG TABLET. PO SCH (08:19)
[2017-12-17] MEDS: FLUTICASONE 50MCG/NASAL SPRAY 16GM BOTTLE. NS SCH (08:20)
[2017-12-17] MEDS: INSULIN LISPRO 300 UNITS/3 ML INSULN.PEN. SQ SCH ×3 (08:27→17:43)
[2017-12-17] MEDS: metFORMIN 500 MG TABLET PO SCH ×2 (08:29→17:43)
[2017-12-17] MEDS: CLOPIDOGREL BISULFATE 75 MG TABLET PO SCH (08:29)
[2017-12-17] MEDS: QUEtiapine 25 MG TABLET. PO SCH ×2 (12:08→20:03)
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
[2017-12-17 15:54] VITALS: BP 123/75
--- NOTE | 2017-12-17 15:59 | NUR ---
Wound Care Wound care consult for multiple wounds. Pt has several skin tears from self inflicted bites on bilateral lower arms and left hand. Cleansed wounds, applied xeroform, kerlix and medigrips, recommend to change every 1-2 days. Pt also has an open blister on right knee that she states is a bug bite. Cleansed wound and applied aquacel ag and foam dressing. No other wounds found on full skin inspection. Pt unable to retain teaching for PU prevention due to mental status. WC will continue to follow for possible changes.
[2017-12-17] MEDS: QUEtiapine 50 MG TABLET. PO SCH (16:16)
[2017-12-17] MEDS: ATORVASTATIN CALCIUM 10 MG TABLET. PO SCH (20:00)
--- NOTE | 2017-12-17 20:00 | NUR ---
Behavior Intervention Response and Plan: BIRP Note: Behavior: Assumed Care of patient, patient located in Day Room at shift change. Patient exhibited the following behavior Interactive, Disorganized, Manic. Brief assessment on rounds of vital signs, medication needs, lab studies, and pain. Treatment plan problems 1. Intervention: Patient assessed and the following interventions initiated safety checks 15 Minute Checks Personal Alarm in place , Cognitive Assessment , Head to toe Assessment. Response: After interactions and interventions patient responded in the following manner, Interactive , Disorganized ,Manic. Continue to assess behaviors and condition will continue to monitor throughout the shift as needed. Patient educated on ADL's, and hand hygiene. 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 Continue to assess patient for changes in above assessment. Monitor for medication needs, pain, and safety concerns. Hourly rounding performed to ensure safe environment.
[2017-12-17] MEDS: CLINDAMYCIN HCL 150 MG CAPSULE PO SCH (20:03)
[2017-12-17] MEDS: LACTOBACILLUS RHAMNOSUS GG 1 CAPSULE. PO SCH (20:03)
[2017-12-17] MEDS: INSULIN GLARGINE 300 UNITS/3 ML INSULN.PEN. SQ SCH (20:14)
--- NOTE | 2017-12-17 20:16 | PN ---
DATE: 12/16/2017 This is a late entry for 12/16/2017 and covers the elements not covered in my initial note of 12/16/2017. SUBJECTIVE: I met with the patient in the evening and staffed at a treatment team meeting with the entire team in the morning. She did well in the morning, somewhat labile later in the day, previous day she was agitated and patrick were being removed, was hitting out, received skin tears on her arms as she was striking out and flailing out. Did not sleep the previous evening till 11 p.m. REVIEW OF SYSTEMS: Ambulation impaired, in wheelchair. No CV, , pulmonary, eye, ENT system symptoms on review. Reliability poor. MENTAL STATUS EXAM: Oriented to herself. Insight, judgment, recent and remote memory, attention, concentration, fund of knowledge poor, consistent with her diagnosis. Psychosis, agitation, mood lability worsens after 3 p.m. IMPRESSION: Unchanged from initial note. PLAN: Add Seroquel 25 mg at noon. Continue rest unchanged from initial note. MAN Sheila CHERRY MD DR: WILLIAM/erica JOB#: [id number] / [id number]
--- NOTE | 2017-12-17 23:13 | PDOC ---
Exam Note: Zaid Note: Please also refer to the separate dictated note~for this date of service dictated separately.~Patient seen individually. Discussed the patient with Nursing staff reviewed the chart.~Reviewed interim history and current functioning. Reviewed vital signs,~Labs/ Radiology~and current medications noted below. Continue current treatment with the changes noted in the dictated addendum note Assessment: Vital Signs: Vital Signs Date Time Temp Pulse Resp B/P (MAP) Pulse Ox O2 Delivery O2 Flow Rate FiO2 12/17/17 20:00 97 123/75 12/17/17 15:54 97.9 22 99 12/16/17 16:21 Room Air I&O Intake and Output 12/17/17 07:00 Intake Total 1600 ml Balance 1600 ml Intake Oral 1600 ml # Bowel Movements 1 Labs: Laboratory Tests Test 12/17/17 07:18 12/17/17 11:41 12/17/17 16:44 12/17/17 19:01 Glucose (Fingerstick) 177 mg/dL (70-99) H 213 mg/dL (70-99) H 141 mg/dL (70-99) H 251 mg/dL (70-99) H Current Medications: Meds: Current Medications Acetaminophen (Tylenol) 650 mg PRN Q6HRS PRN PO MILD PAIN / TEMP Last administered on 12/04/17at 20:04; Start 12/04/17 at 02:45 Multi-Ingredient Ointment (Analgesic [place]) 1 paige PRN QID PRN TP MUSCLE PAIN; Start 12/04/17 at 02:45 Al Hydroxide/Mg Hydroxide (Mylanta Plus Xs) 15 ml PRN AFTMEALHC PRN PO DYSPEPSIA; Start 12/04/17 at 02:45 Magnesium Hydroxide (Milk Of Magnesia) 2,400 mg PRN QHS PRN PO CONSTIPATION; Start 12/04/17 at 02:45 Duloxetine HCl (Cymbalta) 60 mg DAILY PO Last administered on 12/17/17at 08:16; Start 12/04/17 at 09:00 Dextrose 12.5 gm PRN Q15MIN PRN IV SEE COMMENTS; Start 12/04/17 at 02:45 Vitamin D (Vitamin D3) 1,000 unit DAILY PO Last administered on 12/17/17at 08:18 ; Start 12/04/17 at 09:00 Clopidogrel Bisulfate (Plavix) 75 mg DAILY PO Last administered on 12/17/17 08: 29; Start 12/04/17 at 09:00 Cyanocobalamin (Vitamin B-12) 1,000 mcg DAILY PO Last administered on 12/17/17 08:19; Start 12/04/17 at 09:00 Furosemide (Lasix) 10 mg DAILY PO Last administered on 12/17/17 08:18; Start at 09:00 Insulin Glargine (Lantus) 10 units QHS SQ Last administered on 12/04/17 20:00 ; Start 12/04/17 at 21:00; Stop 12/05/17 at 15:57; Status DC Insulin Human Lispro (HumaLOG) 5 units TIDWMEALS SQ Last administered on 12:06; Start 12/04/17 at 08:00; Stop 12/05/17 at 15:57; Status DC Lisinopril (Prinivil) 5 mg DAILY PO Last administered on 12/17/17 08:19; Start 12/04/17 at 09:00 Atorvastatin Calcium (Lipitor) 10 mg QHS PO Last administered on 12/17/17 20:00 ; Start 12/04/17 at 21:00 Docusate Sodium (Colace) 100 mg PRN DAILY PRN PO CONSTIPATION; Start 12/04/17 at 03:00 Famotidine (Pepcid) 20 mg DAILY PO Last administered on 12/17/17 08:16; Start 12/04/17 at 09:00 Non-Formulary Medication (Famotidine/Ca Carb/Mag Hydrox (Tums Dual Action Tablet Chew)) 1,000 mg DAILY PO ; Start 12/04/17 at 09:00; Status UNV Fluticasone Propionate (Flonase) 2 spray DAILY NS Last administered on 08:20; Start 12/04/17 at 09:00 Acetaminophen/ Hydrocodone Bitart (Lortab 5/325) 1 tab PRN Q6HRS PRN PO PAIN Last administered on 12/15/17 14:16; Start 12/04/17 at 03:00 Lidocaine (Lidoderm) 1 patch PRN DAILY PRN TD PAIN; Start 12/04/17 at 09:00 Metformin HCl (Glucophage) 500 mg BIDWMEALS PO Last administered on 12/17/17at 17 :43; Start 12/04/17 at 08:00 Multivitamins/ Calcium (Thera-M Plus) 1 tab DAILY PO Last administered on at 08:18; Start 12/04/17 at 09:00 Non-Formulary Medication (Nebivolol Hcl (Bystolic)) 5 mg BID PO ; Start at 09:00; Stop 12/04/17 at 09:00; Status DC Pantoprazole Sodium (Protonix) 40 mg DAILYAC PO Last administered on 12/17/17 08:18; Start 12/04/17 at 07:30 Artificial Tears (Artificial Tears) 1 drop PRN QID PRN OU DRY EYE; Start at 03:00 Metoprolol Tartrate (Lopressor) 50 mg BID PO Last administered on 12/17/17 20: 00; Start 12/04/17 at 09:00 Insulin Human Lispro (HumaLOG) 9 units 1X ONCE SQ Last administered on at 12:24; Start 12/04/17 at 12:15; Stop 12/04/17 at 12:16; Status DC Insulin Glargine (Lantus) 15 units QHS SQ Last administered on 12/17/17at 20:14; Start 12/05/17 at 21:00 Insulin Human Lispro (HumaLOG) 7 units TIDWMEALS SQ Last administered on at 17:43; Start 12/05/17 at 17:00 Olanzapine (ZyPREXA ZYDIS) 2.5 mg PRN Q2HR PRN PO PSYCHOSIS Last administered on 12/17/17at 13:45; Start 12/05/17 at 18:15 Buspirone HCl (Buspar) 5 mg BID PO Last administered on 12/12/17 20:41; Start 12/06/17 at 09:00; Stop 12/12/17 at 23:53; Status DC Quetiapine Fumarate (SEROquel) 12.5 mg DAILY@1500 PO Last administered on at 15:25; Start 12/08/17 at 15:00; Stop 12/10/17 at 15:00; Status DC Quetiapine Fumarate (SEROquel) 25 mg DAILY@1500 PO Last administered on 15:09; Start 12/10/17 at 15:00; Stop 12/11/17 at 18:07; Status DC Quetiapine Fumarate (SEROquel) 37.5 mg DAILY@1500 PO Last administered on at 15:53; Start 12/12/17 at 15:00; Stop 12/14/17 at 18:47; Status DC Buspirone HCl (Buspar) 5 mg BID@0900,1300 PO Last administered on 12/13/17at 13: 17; Start 12/13/17 at 09:00; Stop 12/13/17 at 19:17; Status DC Buspirone HCl (Buspar) 5 mg TID PO Last administered on 12/15/17at 14:16; Start 12/13/17 at 21:00; Stop 12/15/17 at 18:33; Status DC Quetiapine Fumarate (SEROquel) 50 mg DAILY@1500 PO Last administered on at 16:16; Start 12/15/17 at 15:00 Buspirone HCl (Buspar) 10 mg BID@0900,1700 PO Last administered on 12/17/17at 17: 43; Start 12/16/17 at 09:00 Insulin Human Lispro (HumaLOG) 12 units 1X ONCE SQ Last administered on at 11:36; Start 12/16/17 at 11:30; Stop 12/16/17 at 11:32; Status DC Quetiapine Fumarate (SEROquel) 25 mg NOON PO Last administered on 12/17/17at 12: 08; Start 12/17/17 at 12:00 Quetiapine Fumarate (SEROquel) 12.5 mg BID PO Last administered on 12/17/17 20: 03; Start 12/17/17 at 21:00 Clindamycin HCl (Cleocin) 450 mg TID PO Last administered on 12/17/17 20:03; Start 12/17/17 at 21:00 Lactobacillus Rhamnosus (Culturelle) 1 cap BID PO Last administered on at 20:03; Start 12/17/17 at 21:00 Active Scripts Active Reported Vitamin D3 (Cholecalciferol (Vitamin D3)) 1,000 Unit Tablet 1,000 Unit PO DAILY Clopidogrel (Clopidogrel Bisulfate) 75 Mg Tablet 75 Mg PO DAILY Flonase Sensimist (Fluticasone Furoate) 9.9 Ml [place].susp 2 Sprays NS DAILY Docusate Sodium 250 Mg Capsule 250 Mg PO PRN DAILY PRN Tums Dual Action Tablet Chew (Famotidine/Ca Carb/Mag Hydrox) 1 Each Tab.chew 1, 000 Mg PO DAILY Vitamin B-12 (Cyanocobalamin (Vitamin B-12)) 1,000 Mcg Tablet 1,000 Mcg PO DAILY Multivitamins (Multivitamin) 1 Each Tablet 1 Tab PO DAILY Furosemide 20 Mg Tablet 10 Mg PO DAILY Bystolic (Nebivolol Hcl) 5 Mg Tablet 5 Mg PO BID Zestril (Lisinopril) 5 Mg Tablet 5 Mg PO DAILY Acetaminophen 325 Mg Tablet 650 Mg PO PRN Q8HRS PRN Lidocaine 1 Each Adh..patch 1 Patch TP PRN DAILY PRN [place] 5-325 Tablet (Hydrocodone Bit/Acetaminophen) 1 Each Tablet 1 Tab PO PRN Q6HRS PRN Lipitor (Atorvastatin Calcium) 10 Mg Tablet 10 Mg PO QHS Lantus Solostar (Insulin Glargine,Hum.rec.anlog) 100 Unit/1 Ml Insuln.pen 10 Unit SQ QHS Pepcid (Famotidine) 20 Mg Tablet 20 Mg PO DAILY Pantoprazole Sodium 40 Mg Tablet.dr 40 Mg PO DAILY Milk Of Magnesia (Magnesium Hydroxide) 2,400 Mg/10 Ml Oral.susp 10 Ml PO PRN DAILY PRN Systane 0.3-0.4% Eye Drops (Propylene Glycol/Peg 400) 15 Ml Drops 1 Drop EACHEYE QID PRN Metformin Hcl 500 Mg Tablet 500 Mg PO BIDWMEALS Cymbalta (Duloxetine Hcl) 60 Mg Capsule.dr 60 Mg PO DAILY Humalog (Insulin Lispro) 100 Unit/1 Ml Insuln.pen 5 Unit SQ TIDWMEALS I have reviewed the current psychotropics carefully including drug interactions. Risk benefit ratio favors no change other than as noted in my dictated progress note. Diagnosis: Problems: (1) Anxiety disorder (2) Dementia in Alzheimer's disease with delusions (3) Dementia in Alzheimer's disease with depression (4) Dementia, vascular, with delusions (5) Dementia, vascular, with depression (6) Impulse control disorder JO ANN,MAN M MD Dec 17, 2017 23:13
[2017-12-18 05:41] VITALS: BP 147/71
[2017-12-18] MEDS: MULTIVITAMIN with MINERAL TABLET. PO SCH (10:27)
[2017-12-18] MEDS: metFORMIN 500 MG TABLET PO SCH ×2 (10:28→17:28)
[2017-12-18] MEDS: CYANOCOBALAMIN (VITAMIN B-12) 1,000 MCG TABLET. PO SCH (10:28)
[2017-12-18] MEDS: busPIRone 10 MG TABLET. PO SCH ×2 (10:28→17:28)
[2017-12-18] MEDS: LISINOPRIL 5 MG TABLET. PO SCH (10:28)
[2017-12-18] MEDS: FAMOTIDINE 20 MG TABLET PO SCH (10:28)
[2017-12-18] MEDS: LACTOBACILLUS RHAMNOSUS GG 1 CAPSULE. PO SCH ×2 (10:28→20:08)
[2017-12-18] MEDS: DULoxetine HCL 60 MG CAPSULE.DR PO SCH (10:28)
[2017-12-18] MEDS: PANTOPRAZOLE 40 MG TABLET. PO SCH (10:28)
[2017-12-18] MEDS: CLINDAMYCIN HCL 150 MG CAPSULE PO SCH ×3 (10:29→20:08)
[2017-12-18] MEDS: FUROSEMIDE 20 MG TABLET PO SCH (10:29)
[2017-12-18] MEDS: METOPROLOL TART IMMED RELEASE 50 MG TABLET PO SCH ×2 (10:29→20:06)
[2017-12-18] MEDS: CLOPIDOGREL BISULFATE 75 MG TABLET PO SCH (10:29)
[2017-12-18] MEDS: QUEtiapine 25 MG TABLET. PO SCH ×3 (10:29→20:07)
[2017-12-18] MEDS: CHOLECALCIFEROL (VITAMIN D3) 1,000 UNIT TABLET PO SCH (10:30)
[2017-12-18] MEDS: FLUTICASONE 50MCG/NASAL SPRAY 16GM BOTTLE. NS SCH (10:32)
[2017-12-18] MEDS: INSULIN LISPRO 300 UNITS/3 ML INSULN.PEN. SQ SCH ×3 (10:34→17:31)
--- NOTE | 2017-12-18 10:50 | NUR ---
Behavior Intervention Response and Plan: BIRP Note: Behavior: Assumed Care of patient, patient located in Day Room at shift change. Patient exhibited the following behavior Disorganized, Compulsive, Social. Brief assessment on rounds of vital signs, medication needs, lab studies, and pain. Treatment plan problems 1 & 2. Intervention: Patient assessed and the following interventions initiated safety checks 15 Minute Checks Personal Alarm in place , Cognitive Assessment , Medications. Response: After interactions and interventions patient responded in the following manner, Calm , Appropriate ,Compliant. Continue to assess behaviors and condition will continue to monitor throughout the shift as needed. Patient educated on ADL's, and hand hygiene. 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 Continue to assess patient for changes in above assessment. Monitor for medication needs, pain, and safety concerns. Hourly rounding performed to ensure safe environment.
--- NOTE | 2017-12-18 12:55 | PN ---
DATE: 12/17/2017 This late entry, 12/17/2017, covers elements not covered in my initial note of 12/17/2017. SUBJECTIVE: I met with the patient in the evening. The patient slept 5-1/2 hours. She remains confused. Her hand is infected. We will defer to Dr. Granados for antibiotics. Appetite fair, compliant with medications, anxious, restless, labile at times. REVIEW OF SYSTEMS: Ambulation impaired, in wheelchair. No CV, , pulmonary, eye, ENT system symptoms on review. Complains of hand discomfort. MENTAL STATUS EXAM: Oriented to herself. Insight, judgment, recent and remote memory, attention, concentration, fund of knowledge poor, consistent with her diagnosis mentioned in my initial note. PLAN: Continue current psychotropics. Start Seroquel 12.5 mg at 9 a.m. and 1:00 p.m. Continue 50 mg at bedtime. MAN MKyung CHERRY MD DR: WILLIAM/erica JOB#: [id number] / [id number]
[2017-12-18] MEDS: QUEtiapine 50 MG TABLET. PO SCH (14:04)
[2017-12-18 16:17] VITALS: BP 117/69
--- NOTE | 2017-12-18 18:30 | NUR ---
Dressing to patient's left lower arm was coming loose around the left hand where patient has been pulling on the dressing. She has 3+ edema to left hand, mostly affecting the knuckles and fingers; nonpitting, no complaints of tenderness in the affected area, cool to the touch, slightly paler than surrounding skin. Dressing removed, new petroleum gauze applied, covered with kerlix then secured with cloth tape. Patient tolerated procedure very well and was extremely cooperative throughout. Motor and nerve function in fingers intact, however cap refill is very sluggish. Will monitor edema and cap refill, and report to oncoming shift.
[2017-12-18] MEDS: ATORVASTATIN CALCIUM 10 MG TABLET. PO SCH (20:07)
[2017-12-18] MEDS: INSULIN GLARGINE 300 UNITS/3 ML INSULN.PEN. SQ SCH (20:22)
--- NOTE | 2017-12-19 01:40 | NUR ---
Behavior Intervention Response and Plan: BIRP Note: Behavior: Assumed Care of patient, patient located in Day Room at shift change. Patient exhibited the following behavior Interactive, Compulsive, Social. Brief assessment on rounds of vital signs, medication needs, lab studies, and pain. Treatment plan problems 1 & 2. Intervention: Patient assessed and the following interventions initiated safety checks 15 Minute Checks Personal Alarm in place , Cognitive Assessment , Medications. Response: After interactions and interventions patient responded in the following manner, Calm , Appropriate ,Med-Compliant. Continue to assess behaviors and condition will continue to monitor throughout the shift as needed. Patient educated on ADL's, and hand hygiene. Plan: Continue to monitor Master Treatment Plan for patient's progress toward short term goals of Decreased Agitation, No harm To self/ others, custodial goals to return to previous living setting vs placement. Continue to assess patient for changes in above assessment. Monitor for medication needs, pain, and safety concerns. Hourly rounding performed to ensure safe environment.
[2017-12-19 05:38] VITALS: BP 118/68
[2017-12-19] MEDS: CLOPIDOGREL BISULFATE 75 MG TABLET PO SCH (07:54)
[2017-12-19] MEDS: LISINOPRIL 5 MG TABLET. PO SCH (07:55)
[2017-12-19] MEDS: PANTOPRAZOLE 40 MG TABLET. PO SCH (07:55)
[2017-12-19] MEDS: CLINDAMYCIN HCL 150 MG CAPSULE PO SCH ×3 (07:55→20:46)
[2017-12-19] MEDS: FUROSEMIDE 20 MG TABLET PO SCH (07:55)
[2017-12-19] MEDS: MULTIVITAMIN with MINERAL TABLET. PO SCH (07:56)
[2017-12-19] MEDS: METOPROLOL TART IMMED RELEASE 50 MG TABLET PO SCH ×2 (07:56→20:46)
[2017-12-19] MEDS: FAMOTIDINE 20 MG TABLET PO SCH (07:56)
[2017-12-19] MEDS: QUEtiapine 25 MG TABLET. PO SCH ×3 (07:56→20:46)
[2017-12-19] MEDS: DULoxetine HCL 60 MG CAPSULE.DR PO SCH (07:56)
[2017-12-19] MEDS: CYANOCOBALAMIN (VITAMIN B-12) 1,000 MCG TABLET. PO SCH (07:56)
[2017-12-19] MEDS: LACTOBACILLUS RHAMNOSUS GG 1 CAPSULE. PO SCH ×2 (07:56→20:45)
[2017-12-19] MEDS: CHOLECALCIFEROL (VITAMIN D3) 1,000 UNIT TABLET PO SCH (07:57)
[2017-12-19] MEDS: busPIRone 10 MG TABLET. PO SCH ×2 (07:57→15:49)
[2017-12-19] MEDS: metFORMIN 500 MG TABLET PO SCH ×2 (07:57→15:49)
[2017-12-19] MEDS: FLUTICASONE 50MCG/NASAL SPRAY 16GM BOTTLE. NS SCH (08:00)
[2017-12-19] MEDS: INSULIN LISPRO 300 UNITS/3 ML INSULN.PEN. SQ SCH ×3 (08:02→17:44)
[2017-12-19 08:20] LABS: BASO % 0 % (0-3); EOS # 0.3 x10^3/uL (0.0-0.7); EOS % 2 % (0-3); HEMATOCRIT 31.9 % (36.0-47.0); HEMOGLOBIN 10.7 g/dL (12.0-15.5); LYMPH # 2.3 x10^3/uL (1.0-4.8); LYMPH % 22 % (24-48); MEAN CORPUSCULAR HEMOGLOBIN 33 pg (25-35); MEAN CORPUSCULAR HGB CONC 34 g/dL (31-37); MEAN CORPUSCULAR VOLUME 98 fL (79-100); MONO # 0.7 x10^3/uL (0.0-1.1); MONO % 7 % (0-9); NEUT # 7.1 x10^3uL (1.8-7.7); NEUT % 68 % (31-73); PLATELET COUNT 209 x10^3/uL (140-400); RED BLOOD COUNT 3.28 x10^6/uL (3.50-5.40); RED CELL DISTRIBUTION WIDTH 13.9 % (11.5-14.5); WHITE BLOOD COUNT 10.4 x10^3/uL (4.0-11.0)
[2017-12-19 08:34] LABS: ALBUMIN 2.6 g/dL (3.4-5.0); ALBUMIN/GLOBULIN RATIO 0.7 (1.0-1.7); CALCIUM 8.6 mg/dL (8.5-10.1); CREATININE 1.3 mg/dL (0.6-1.0); GFR 38.9; POTASSIUM 4.7 mmol/L (3.5-5.1); TOTAL BILIRUBIN 0.3 mg/dL (0.2-1.0); TOTAL PROTEIN 6.5 g/dL (6.4-8.2)
--- NOTE | 2017-12-19 11:50 | NUR ---
Behavior Intervention Response and Plan: BIRP Note: Behavior: Assumed Care of patient, patient located in Day Room at shift change. Patient exhibited the following behavior Disorganized, Compulsive, Social. Brief assessment on rounds of vital signs, medication needs, lab studies, and pain. Treatment plan problems 1 & 2. Intervention: Patient assessed and the following interventions initiated safety checks 15 Minute Checks Personal Alarm in place , Cognitive Assessment , Medications. Response: After interactions and interventions patient responded in the following manner, Calm , Appropriate ,Compliant. Continue to assess behaviors and condition will continue to monitor throughout the shift as needed. Patient educated on ADL's, and hand hygiene. Plan: Continue to monitor Master Treatment Plan for patient's progress toward short term goals of Decreased Agitation, No harm To self/ others, procedures tech goals to return to previous living setting vs placement. Continue to assess patient for changes in above assessment. Monitor for medication needs, pain, and safety concerns. Hourly rounding performed to ensure safe environment.
[2017-12-19] MEDS: QUEtiapine 50 MG TABLET. PO SCH (15:48)
[2017-12-19 16:31] VITALS: BP 149/73
--- NOTE | 2017-12-19 20:19 | PDOC ---
Exam Note: Zaid Note: Late entry for date of service December 18, 2017. Please also refer to the separate dictated note~for this date of service dictated separately.~Patient seen individually. Discussed the patient with Nursing staff reviewed the chart.~ Reviewed interim history and current functioning. Reviewed vital signs,~Labs/ Radiology~and current medications noted below. Continue current treatment with the changes noted in the dictated addendum note Assessment: Vital Signs: VS - Last 72 Hours, by Label Date Time Temp Pulse Resp B/P (MAP) Pulse Ox O2 Delivery O2 Flow Rate FiO2 12/19/17 16:31 98.3 80 16 149/73 (98) 98 12/19/17 07:56 76 118/68 12/19/17 07:55 76 118/68 12/19/17 05:38 98.3 76 18 118/68 (85) 96 12/18/17 20:06 73 117/69 12/18/17 16:17 98.2 73 18 117/69 (85) 99 12/18/17 10:29 74 147/71 12/18/17 10:28 74 147/71 12/18/17 05:41 97.9 74 16 147/71 (96) 99 12/17/17 20:00 97 123/75 12/17/17 15:54 97.9 97 22 123/75 (91) 99 12/17/17 08:19 88 139/56 12/17/17 08:18 88 139/56 12/17/17 05:47 96.7 88 17 139/56 (83) 99 Vital Signs Date Time Temp Pulse Resp B/P (MAP) Pulse Ox O2 Delivery O2 Flow Rate FiO2 12/19/17 16:31 98.3 80 16 149/73 (98) 98 12/16/17 16:21 Room Air I&O Intake and Output 12/19/17 07:00 Intake Total 1200 ml Balance 1200 ml Intake Oral 1200 ml Labs: Laboratory Tests Test 12/19/17 07:45 12/19/17 07:46 12/19/17 11:51 12/19/17 16:43 White Blood Count 10.4 x10^3/uL (4.0-11.0) Red Blood Count 3.28 x10^6/uL (3.50-5.40) L Hemoglobin 10.7 g/dL (12.0-15.5) L Hematocrit 31.9 % (36.0-47.0) L Mean Corpuscular Volume 98 fL (79-100) Mean Corpuscular Hemoglobin 33 pg (25-35) Mean Corpuscular Hemoglobin Concent 34 g/dL (31-37) Red Cell Distribution Width 13.9 % (11.5-14.5) Platelet Count 209 x10^3/uL (140-400) Neutrophils (%) (Auto) 68 % (31-73) Lymphocytes (%) (Auto) 22 % (24-48) L Monocytes (%) (Auto) 7 % (0-9) Eosinophils (%) (Auto) 2 % (0-3) Basophils (%) (Auto) 0 % (0-3) Neutrophils # (Auto) 7.1 x10^3uL (1.8-7.7) Lymphocytes # (Auto) 2.3 x10^3/uL (1.0-4.8) Monocytes # (Auto) 0.7 x10^3/uL (0.0-1.1) Eosinophils # (Auto) 0.3 x10^3/uL (0.0-0.7) Basophils # (Auto) 0.0 x10^3/uL (0.0-0.2) Sodium Level 145 mmol/L (136-145) Potassium Level 4.7 mmol/L (3.5-5.1) Chloride Level 107 mmol/L (98-107) Carbon Dioxide Level 33 mmol/L (21-32) H Anion Gap 5 (6-14) L Blood Urea Nitrogen 27 mg/dL (7-20) H Creatinine 1.3 mg/dL (0.6-1.0) H Estimated GFR (Cockcroft-Gault) 38.9 BUN/Creatinine Ratio 21 (6-20) H Glucose Level 110 mg/dL (70-99) H Calcium Level 8.6 mg/dL (8.5-10.1) Total Bilirubin 0.3 mg/dL (0.2-1.0) Aspartate Amino Transferase (AST) 16 U/L (15-37) Alanine Aminotransferase (ALT) 17 U/L (14-59) Alkaline Phosphatase 78 U/L (46-116) Total Protein 6.5 g/dL (6.4-8.2) Albumin 2.6 g/dL (3.4-5.0) L Albumin/Globulin Ratio 0.7 (1.0-1.7) L Glucose (Fingerstick) 108 mg/dL (70-99) H 207 mg/dL (70-99) H 112 mg/dL (70-99) H Current Medications: Meds: Current Medications Acetaminophen (Tylenol) 650 mg PRN Q6HRS PRN PO MILD PAIN / TEMP Last administered on 12/04/17at 20:04; Start 12/04/17 at 02:45 Multi-Ingredient Ointment (Analgesic [place]) 1 paige PRN QID PRN TP MUSCLE PAIN; Start 12/04/17 at 02:45 Al Hydroxide/Mg Hydroxide (Mylanta Plus Xs) 15 ml PRN AFTMEALHC PRN PO DYSPEPSIA; Start 12/04/17 at 02:45 Magnesium Hydroxide (Milk Of Magnesia) 2,400 mg PRN QHS PRN PO CONSTIPATION; Start 12/04/17 at 02:45 Duloxetine HCl (Cymbalta) 60 mg DAILY PO Last administered on 12/19/17 07:56; Start 12/04/17 at 09:00 Dextrose 12.5 gm PRN Q15MIN PRN IV SEE COMMENTS; Start 12/04/17 at 02:45 Vitamin D (Vitamin D3) 1,000 unit DAILY PO Last administered on 12/19/17 07:57 ; Start 12/04/17 at 09:00 Clopidogrel Bisulfate (Plavix) 75 mg DAILY PO Last administered on 12/19/17 07 :54; Start 12/04/17 at 09:00 Cyanocobalamin (Vitamin B-12) 1,000 mcg DAILY PO Last administered on 07:56; Start 12/04/17 at 09:00 Furosemide (Lasix) 10 mg DAILY PO Last administered on 12/19/17 07:55; Start 12/04/17 at 09:00 Insulin Glargine (Lantus) 10 units QHS SQ Last administered on 12/04/17at 20:00 ; Start 12/04/17 at 21:00; Stop 12/05/17 at 15:57; Status DC Insulin Human Lispro (HumaLOG) 5 units TIDWMEALS SQ Last administered on 5/27/ 18at 12:06; Start 12/04/17 at 08:00; Stop 12/05/17 at 15:57; Status DC Lisinopril (Prinivil) 5 mg DAILY PO Last administered on 12/19/17at 07:55; Start 12/04/17 at 09:00 Atorvastatin Calcium (Lipitor) 10 mg QHS PO Last administered on 12/18/17at 20:07 ; Start 12/04/17 at 21:00 Docusate Sodium (Colace) 100 mg PRN DAILY PRN PO CONSTIPATION; Start 12/04/17 at 03:00 Famotidine (Pepcid) 20 mg DAILY PO Last administered on 12/19/17at 07:56; Start 12/04/17 at 09:00 Non-Formulary Medication (Famotidine/Ca Carb/Mag Hydrox (Tums Dual Action Tablet Chew)) 1,000 mg DAILY PO ; Start 12/04/17 at 09:00; Status UNV Fluticasone Propionate (Flonase) 2 spray DAILY NS Last administered on at 08:00; Start 12/04/17 at 09:00 Acetaminophen/ Hydrocodone Bitart (Lortab 5/325) 1 tab PRN Q6HRS PRN PO PAIN Last administered on 12/15/17 14:16; Start 12/04/17 at 03:00 Lidocaine (Lidoderm) 1 patch PRN DAILY PRN TD PAIN; Start 12/04/17 at 09:00 Metformin HCl (Glucophage) 500 mg BIDWMEALS PO Last administered on 12/18/17at 10 :28; Start 12/04/17 at 08:00; Stop 12/18/17 at 16:49; Status DC Multivitamins/ Calcium (Thera-M Plus) 1 tab DAILY PO Last administered on at 07:56; Start 12/04/17 at 09:00 Non-Formulary Medication (Nebivolol Hcl (Bystolic)) 5 mg BID PO ; Start at 09:00; Stop 12/04/17 at 09:00; Status DC Pantoprazole Sodium (Protonix) 40 mg DAILYAC PO Last administered on 12/19/17at 07:55; Start 12/04/17 at 07:30 Artificial Tears (Artificial Tears) 1 drop PRN QID PRN OU DRY EYE; Start at 03:00 Metoprolol Tartrate (Lopressor) 50 mg BID PO Last administered on 12/19/17at 07: 56; Start 12/04/17 at 09:00 Insulin Human Lispro (HumaLOG) 9 units 1X ONCE SQ Last administered on at 12:24; Start 12/04/17 at 12:15; Stop 12/04/17 at 12:16; Status DC Insulin Glargine (Lantus) 15 units QHS SQ Last administered on 12/17/17at 20:14; Start 12/05/17 at 21:00; Stop 12/18/17 at 16:48; Status DC Insulin Human Lispro (HumaLOG) 7 units TIDWMEALS SQ Last administered on at 12:22; Start 12/05/17 at 17:00; Stop 12/18/17 at 16:49; Status DC Olanzapine (ZyPREXA ZYDIS) 2.5 mg PRN Q2HR PRN PO PSYCHOSIS Last administered on 12/19/17at 15:51; Start 12/05/17 at 18:15 Buspirone HCl (Buspar) 5 mg BID PO Last administered on 12/12/17 20:41; Start 12/06/17 at 09:00; Stop 12/12/17 at 23:53; Status DC Quetiapine Fumarate (SEROquel) 12.5 mg DAILY@1500 PO Last administered on at 15:25; Start 12/08/17 at 15:00; Stop 12/10/17 at 15:00; Status DC Quetiapine Fumarate (SEROquel) 25 mg DAILY@1500 PO Last administered on at 15:09; Start 12/10/17 at 15:00; Stop 12/11/17 at 18:07; Status DC Quetiapine Fumarate (SEROquel) 37.5 mg DAILY@1500 PO Last administered on 15:53; Start 12/12/17 at 15:00; Stop 12/14/17 at 18:47; Status DC Buspirone HCl (Buspar) 5 mg BID@0900,1300 PO Last administered on 12/13/17at 13: 17; Start 12/13/17 at 09:00; Stop 12/13/17 at 19:17; Status DC Buspirone HCl (Buspar) 5 mg TID PO Last administered on 12/15/17 14:16; Start 12/13/17 at 21:00; Stop 12/15/17 at 18:33; Status DC Quetiapine Fumarate (SEROquel) 50 mg DAILY@1500 PO Last administered on at 15:48; Start 12/15/17 at 15:00 Buspirone HCl (Buspar) 10 mg BID@0900,1700 PO Last administered on 12/19/17 15 :49; Start 12/16/17 at 09:00 Insulin Human Lispro (HumaLOG) 12 units 1X ONCE SQ Last administered on at 11:36; Start 12/16/17 at 11:30; Stop 12/16/17 at 11:32; Status DC Quetiapine Fumarate (SEROquel) 25 mg NOON PO Last administered on 12/19/17 14: 10; Start 12/17/17 at 12:00 Quetiapine Fumarate (SEROquel) 12.5 mg BID PO Last administered on 12/19/17 07 :56; Start 12/17/17 at 21:00 Clindamycin HCl (Cleocin) 450 mg TID PO Last administered on 12/19/17 14:29; Start 12/17/17 at 21:00 Lactobacillus Rhamnosus (Culturelle) 1 cap BID PO Last administered on at 07:56; Start 12/17/17 at 21:00 Insulin Glargine (Lantus) 20 units QHS SQ Last administered on 12/18/17at 20:22; Start 12/18/17 at 21:00 Insulin Human Lispro (HumaLOG) 7 units DAILYWBKFT SQ Last administered on at 08:02; Start 12/19/17 at 08:00 Metformin HCl (Glucophage) 1,000 mg BIDWMEALS PO Last administered on 15:49; Start 12/18/17 at 17:00 Insulin Human Lispro (HumaLOG) 10 units DAILYWLUN SQ Last administered on 14:09; Start 12/19/17 at 12:00 Insulin Human Lispro (HumaLOG) 12 units DAILYWSUP SQ Last administered on at 17:44; Start 12/18/17 at 17:00 Active Scripts Active Reported Vitamin D3 (Cholecalciferol (Vitamin D3)) 1,000 Unit Tablet 1,000 Unit PO DAILY Clopidogrel (Clopidogrel Bisulfate) 75 Mg Tablet 75 Mg PO DAILY Flonase Sensimist (Fluticasone Furoate) 9.9 Ml [place].susp 2 Sprays NS DAILY Docusate Sodium 250 Mg Capsule 250 Mg PO PRN DAILY PRN Tums Dual Action Tablet Chew (Famotidine/Ca Carb/Mag Hydrox) 1 Each Tab.chew 1, 000 Mg PO DAILY Vitamin B-12 (Cyanocobalamin (Vitamin B-12)) 1,000 Mcg Tablet 1,000 Mcg PO DAILY Multivitamins (Multivitamin) 1 Each Tablet 1 Tab PO DAILY Furosemide 20 Mg Tablet 10 Mg PO DAILY Bystolic (Nebivolol Hcl) 5 Mg Tablet 5 Mg PO BID Zestril (Lisinopril) 5 Mg Tablet 5 Mg PO DAILY Acetaminophen 325 Mg Tablet 650 Mg PO PRN Q8HRS PRN Lidocaine 1 Each Adh..patch 1 Patch TP PRN DAILY PRN [place] 5-325 Tablet (Hydrocodone Bit/Acetaminophen) 1 Each Tablet 1 Tab PO PRN Q6HRS PRN Lipitor (Atorvastatin Calcium) 10 Mg Tablet 10 Mg PO QHS Lantus Solostar (Insulin Glargine,Hum.rec.anlog) 100 Unit/1 Ml Insuln.pen 10 Unit SQ QHS Pepcid (Famotidine) 20 Mg Tablet 20 Mg PO DAILY Pantoprazole Sodium 40 Mg Tablet. 40 Mg PO DAILY Milk Of Magnesia (Magnesium Hydroxide) 2,400 Mg/10 Ml Oral.susp 10 Ml PO PRN DAILY PRN Systane 0.3-0.4% Eye Drops (Propylene Glycol/Peg 400) 15 Ml Drops 1 Drop EACHEYE QID PRN Metformin Hcl 500 Mg Tablet 500 Mg PO BIDWMEALS Cymbalta (Duloxetine Hcl) 60 Mg Capsule. 60 Mg PO DAILY Humalog (Insulin Lispro) 100 Unit/1 Ml Insuln.pen 5 Unit SQ TIDWMEALS I have reviewed the current psychotropics carefully including drug interactions. Risk benefit ratio favors no change other than as noted in my dictated progress note. Diagnosis: Problems: (1) Anxiety disorder (2) Dementia in Alzheimer's disease with delusions (3) Dementia in Alzheimer's disease with depression (4) Dementia, vascular, with delusions (5) Dementia, vascular, with depression (6) Impulse control disorder DANE CHERRY MD Dec 19, 2017 20:19
--- NOTE | 2017-12-19 20:20 | PDOC ---
Exam Note: Zaid Note: Please also refer to the separate dictated note~for this date of service dictated separately.~Patient seen individually. Discussed the patient with Nursing staff reviewed the chart.~Reviewed interim history and current functioning. Reviewed vital signs,~Labs/ Radiology~and current medications noted below. Continue current treatment with the changes noted in the dictated addendum note Assessment: Vital Signs: Vital Signs Date Time Temp Pulse Resp B/P (MAP) Pulse Ox O2 Delivery O2 Flow Rate FiO2 12/19/17 16:31 98.3 80 16 149/73 (98) 98 12/16/17 16:21 Room Air I&O Intake and Output 12/19/17 07:00 Intake Total 1200 ml Balance 1200 ml Intake Oral 1200 ml Labs: Laboratory Tests Test 12/19/17 07:45 12/19/17 07:46 12/19/17 11:51 12/19/17 16:43 White Blood Count 10.4 x10^3/uL (4.0-11.0) Red Blood Count 3.28 x10^6/uL (3.50-5.40) L Hemoglobin 10.7 g/dL (12.0-15.5) L Hematocrit 31.9 % (36.0-47.0) L Mean Corpuscular Volume 98 fL (79-100) Mean Corpuscular Hemoglobin 33 pg (25-35) Mean Corpuscular Hemoglobin Concent 34 g/dL (31-37) Red Cell Distribution Width 13.9 % (11.5-14.5) Platelet Count 209 x10^3/uL (140-400) Neutrophils (%) (Auto) 68 % (31-73) Lymphocytes (%) (Auto) 22 % (24-48) L Monocytes (%) (Auto) 7 % (0-9) Eosinophils (%) (Auto) 2 % (0-3) Basophils (%) (Auto) 0 % (0-3) Neutrophils # (Auto) 7.1 x10^3uL (1.8-7.7) Lymphocytes # (Auto) 2.3 x10^3/uL (1.0-4.8) Monocytes # (Auto) 0.7 x10^3/uL (0.0-1.1) Eosinophils # (Auto) 0.3 x10^3/uL (0.0-0.7) Basophils # (Auto) 0.0 x10^3/uL (0.0-0.2) Sodium Level 145 mmol/L (136-145) Potassium Level 4.7 mmol/L (3.5-5.1) Chloride Level 107 mmol/L (98-107) Carbon Dioxide Level 33 mmol/L (21-32) H Anion Gap 5 (6-14) L Blood Urea Nitrogen 27 mg/dL (7-20) H Creatinine 1.3 mg/dL (0.6-1.0) H Estimated GFR (Cockcroft-Gault) 38.9 BUN/Creatinine Ratio 21 (6-20) H Glucose Level 110 mg/dL (70-99) H Calcium Level 8.6 mg/dL (8.5-10.1) Total Bilirubin 0.3 mg/dL (0.2-1.0) Aspartate Amino Transferase (AST) 16 U/L (15-37) Alanine Aminotransferase (ALT) 17 U/L (14-59) Alkaline Phosphatase 78 U/L (46-116) Total Protein 6.5 g/dL (6.4-8.2) Albumin 2.6 g/dL (3.4-5.0) L Albumin/Globulin Ratio 0.7 (1.0-1.7) L Glucose (Fingerstick) 108 mg/dL (70-99) H 207 mg/dL (70-99) H 112 mg/dL (70-99) H Current Medications: Meds: Current Medications Acetaminophen (Tylenol) 650 mg PRN Q6HRS PRN PO MILD PAIN / TEMP Last administered on 12/04/17at 20:04; Start 12/04/17 at 02:45 Multi-Ingredient Ointment (Analgesic [place]) 1 paige PRN QID PRN TP MUSCLE PAIN; Start 12/04/17 at 02:45 Al Hydroxide/Mg Hydroxide (Mylanta Plus Xs) 15 ml PRN AFTMEALHC PRN PO DYSPEPSIA; Start 12/04/17 at 02:45 Magnesium Hydroxide (Milk Of Magnesia) 2,400 mg PRN QHS PRN PO CONSTIPATION; Start 12/04/17 at 02:45 Duloxetine HCl (Cymbalta) 60 mg DAILY PO Last administered on 12/19/17at 07:56; Start 12/04/17 at 09:00 Dextrose 12.5 gm PRN Q15MIN PRN IV SEE COMMENTS; Start 12/04/17 at 02:45 Vitamin D (Vitamin D3) 1,000 unit DAILY PO Last administered on 12/19/17 07:57 ; Start 12/04/17 at 09:00 Clopidogrel Bisulfate (Plavix) 75 mg DAILY PO Last administered on 12/19/17 07 :54; Start 12/04/17 at 09:00 Cyanocobalamin (Vitamin B-12) 1,000 mcg DAILY PO Last administered on 07:56; Start 12/04/17 at 09:00 Furosemide (Lasix) 10 mg DAILY PO Last administered on 12/19/17 07:55; Start 12/04/17 at 09:00 Insulin Glargine (Lantus) 10 units QHS SQ Last administered on 12/04/17at 20:00 ; Start 12/04/17 at 21:00; Stop 12/05/17 at 15:57; Status DC Insulin Human Lispro (HumaLOG) 5 units TIDWMEALS SQ Last administered on 12:06; Start 12/04/17 at 08:00; Stop 12/05/17 at 15:57; Status DC Lisinopril (Prinivil) 5 mg DAILY PO Last administered on 12/19/17 07:55; Start 12/04/17 at 09:00 Atorvastatin Calcium (Lipitor) 10 mg QHS PO Last administered on 12/18/17 20:07 ; Start 12/04/17 at 21:00 Docusate Sodium (Colace) 100 mg PRN DAILY PRN PO CONSTIPATION; Start 12/04/17 at 03:00 Famotidine (Pepcid) 20 mg DAILY PO Last administered on 12/19/17 07:56; Start 12/04/17 at 09:00 Non-Formulary Medication (Famotidine/Ca Carb/Mag Hydrox (Tums Dual Action Tablet Chew)) 1,000 mg DAILY PO ; Start 12/04/17 at 09:00; Status UNV Fluticasone Propionate (Flonase) 2 spray DAILY NS Last administered on at 08:00; Start 12/04/17 at 09:00 Acetaminophen/ Hydrocodone Bitart (Lortab 5/325) 1 tab PRN Q6HRS PRN PO PAIN Last administered on 12/15/17at 14:16; Start 12/04/17 at 03:00 Lidocaine (Lidoderm) 1 patch PRN DAILY PRN TD PAIN; Start 12/04/17 at 09:00 Metformin HCl (Glucophage) 500 mg BIDWMEALS PO Last administered on 12/18/17at 10 :28; Start 12/04/17 at 08:00; Stop 12/18/17 at 16:49; Status DC Multivitamins/ Calcium (Thera-M Plus) 1 tab DAILY PO Last administered on at 07:56; Start 12/04/17 at 09:00 Non-Formulary Medication (Nebivolol Hcl (Bystolic)) 5 mg BID PO ; Start at 09:00; Stop 12/04/17 at 09:00; Status DC Pantoprazole Sodium (Protonix) 40 mg DAILYAC PO Last administered on 12/19/17at 07:55; Start 12/04/17 at 07:30 Artificial Tears (Artificial Tears) 1 drop PRN QID PRN OU DRY EYE; Start at 03:00 Metoprolol Tartrate (Lopressor) 50 mg BID PO Last administered on 12/19/17at 07: 56; Start 12/04/17 at 09:00 Insulin Human Lispro (HumaLOG) 9 units 1X ONCE SQ Last administered on at 12:24; Start 12/04/17 at 12:15; Stop 12/04/17 at 12:16; Status DC Insulin Glargine (Lantus) 15 units QHS SQ Last administered on 12/17/17at 20:14; Start 12/05/17 at 21:00; Stop 12/18/17 at 16:48; Status DC Insulin Human Lispro (HumaLOG) 7 units TIDWMEALS SQ Last administered on at 12:22; Start 12/05/17 at 17:00; Stop 12/18/17 at 16:49; Status DC Olanzapine (ZyPREXA ZYDIS) 2.5 mg PRN Q2HR PRN PO PSYCHOSIS Last administered on 12/19/17at 15:51; Start 12/05/17 at 18:15 Buspirone HCl (Buspar) 5 mg BID PO Last administered on 12/12/17at 20:41; Start 12/06/17 at 09:00; Stop 12/12/17 at 23:53; Status DC Quetiapine Fumarate (SEROquel) 12.5 mg DAILY@1500 PO Last administered on at 15:25; Start 12/08/17 at 15:00; Stop 12/10/17 at 15:00; Status DC Quetiapine Fumarate (SEROquel) 25 mg DAILY@1500 PO Last administered on at 15:09; Start 12/10/17 at 15:00; Stop 12/11/17 at 18:07; Status DC Quetiapine Fumarate (SEROquel) 37.5 mg DAILY@1500 PO Last administered on at 15:53; Start 12/12/17 at 15:00; Stop 12/14/17 at 18:47; Status DC Buspirone HCl (Buspar) 5 mg BID@0900,1300 PO Last administered on 12/13/17at 13: 17; Start 12/13/17 at 09:00; Stop 12/13/17 at 19:17; Status DC Buspirone HCl (Buspar) 5 mg TID PO Last administered on 12/15/17at 14:16; Start 12/13/17 at 21:00; Stop 12/15/17 at 18:33; Status DC Quetiapine Fumarate (SEROquel) 50 mg DAILY@1500 PO Last administered on at 15:48; Start 12/15/17 at 15:00 Buspirone HCl (Buspar) 10 mg BID@0900,1700 PO Last administered on 12/19/17at 15 :49; Start 12/16/17 at 09:00 Insulin Human Lispro (HumaLOG) 12 units 1X ONCE SQ Last administered on at 11:36; Start 12/16/17 at 11:30; Stop 12/16/17 at 11:32; Status DC Quetiapine Fumarate (SEROquel) 25 mg NOON PO Last administered on 12/19/17at 14: 10; Start 12/17/17 at 12:00 Quetiapine Fumarate (SEROquel) 12.5 mg BID PO Last administered on 12/19/17 07 :56; Start 12/17/17 at 21:00 Clindamycin HCl (Cleocin) 450 mg TID PO Last administered on 12/19/17 14:29; Start 12/17/17 at 21:00 Lactobacillus Rhamnosus (Culturelle) 1 cap BID PO Last administered on 07:56; Start 12/17/17 at 21:00 Insulin Glargine (Lantus) 20 units QHS SQ Last administered on 12/18/17at 20:22; Start 12/18/17 at 21:00 Insulin Human Lispro (HumaLOG) 7 units DAILYWBKFT SQ Last administered on 08:02; Start 12/19/17 at 08:00 Metformin HCl (Glucophage) 1,000 mg BIDWMEALS PO Last administered on at 15:49; Start 12/18/17 at 17:00 Insulin Human Lispro (HumaLOG) 10 units DAILYWLUN SQ Last administered on at 14:09; Start 12/19/17 at 12:00 Insulin Human Lispro (HumaLOG) 12 units DAILYWSUP SQ Last administered on at 17:44; Start 12/18/17 at 17:00 Active Scripts Active Reported Vitamin D3 (Cholecalciferol (Vitamin D3)) 1,000 Unit Tablet 1,000 Unit PO DAILY Clopidogrel (Clopidogrel Bisulfate) 75 Mg Tablet 75 Mg PO DAILY Flonase Sensimist (Fluticasone Furoate) 9.9 Ml [place].susp 2 Sprays NS DAILY Docusate Sodium 250 Mg Capsule 250 Mg PO PRN DAILY PRN Tums Dual Action Tablet Chew (Famotidine/Ca Carb/Mag Hydrox) 1 Each Tab.chew 1, 000 Mg PO DAILY Vitamin B-12 (Cyanocobalamin (Vitamin B-12)) 1,000 Mcg Tablet 1,000 Mcg PO DAILY Multivitamins (Multivitamin) 1 Each Tablet 1 Tab PO DAILY Furosemide 20 Mg Tablet 10 Mg PO DAILY Bystolic (Nebivolol Hcl) 5 Mg Tablet 5 Mg PO BID Zestril (Lisinopril) 5 Mg Tablet 5 Mg PO DAILY Acetaminophen 325 Mg Tablet 650 Mg PO PRN Q8HRS PRN Lidocaine 1 Each Adh..patch 1 Patch TP PRN DAILY PRN [place] 5-325 Tablet (Hydrocodone Bit/Acetaminophen) 1 Each Tablet 1 Tab PO PRN Q6HRS PRN Lipitor (Atorvastatin Calcium) 10 Mg Tablet 10 Mg PO QHS Lantus Solostar (Insulin Glargine,Hum.rec.anlog) 100 Unit/1 Ml Insuln.pen 10 Unit SQ QHS Pepcid (Famotidine) 20 Mg Tablet 20 Mg PO DAILY Pantoprazole Sodium 40 Mg Tablet.dr 40 Mg PO DAILY Milk Of Magnesia (Magnesium Hydroxide) 2,400 Mg/10 Ml Oral.susp 10 Ml PO PRN DAILY PRN Systane 0.3-0.4% Eye Drops (Propylene Glycol/Peg 400) 15 Ml Drops 1 Drop EACHEYE QID PRN Metformin Hcl 500 Mg Tablet 500 Mg PO BIDWMEALS Cymbalta (Duloxetine Hcl) 60 Mg Capsule.dr 60 Mg PO DAILY Humalog (Insulin Lispro) 100 Unit/1 Ml Insuln.pen 5 Unit SQ TIDWMEALS I have reviewed the current psychotropics carefully including drug interactions. Risk benefit ratio favors no change other than as noted in my dictated progress note. Diagnosis: Problems: (1) Anxiety disorder (2) Dementia in Alzheimer's disease with delusions (3) Dementia in Alzheimer's disease with depression (4) Dementia, vascular, with delusions (5) Dementia, vascular, with depression (6) Impulse control disorder DANE CHERRY MD Dec 19, 2017 20:20
[2017-12-19] MEDS: ATORVASTATIN CALCIUM 10 MG TABLET. PO SCH (20:45)
[2017-12-19] MEDS: INSULIN GLARGINE 300 UNITS/3 ML INSULN.PEN. SQ SCH (20:47)
--- NOTE | 2017-12-19 21:40 | NUR ---
Patient sitting at day room table with peers. Pleasant and able to tell nurse that she is in hospital and that her arm bandages were changed earlier. Left hand is swollen/edematous due to skin tears and patient is on abs for them weekly wound photographs taken on day shift. Patient compliant with medications taken whole with water, she then requested ice cream.
[2017-12-20 06:16] VITALS: BP 118/54
[2017-12-20] MEDS: CLINDAMYCIN HCL 150 MG CAPSULE PO SCH ×3 (07:37→21:00)
[2017-12-20] MEDS: CYANOCOBALAMIN (VITAMIN B-12) 1,000 MCG TABLET. PO SCH (07:37)
[2017-12-20] MEDS: CHOLECALCIFEROL (VITAMIN D3) 1,000 UNIT TABLET PO SCH (07:37)
[2017-12-20] MEDS: PANTOPRAZOLE 40 MG TABLET. PO SCH (07:37)
[2017-12-20] MEDS: LACTOBACILLUS RHAMNOSUS GG 1 CAPSULE. PO SCH ×2 (07:37→21:00)
[2017-12-20] MEDS: metFORMIN 500 MG TABLET PO SCH ×2 (07:37→17:05)
[2017-12-20] MEDS: FAMOTIDINE 20 MG TABLET PO SCH (07:38)
[2017-12-20] MEDS: MULTIVITAMIN with MINERAL TABLET. PO SCH (07:38)
[2017-12-20] MEDS: QUEtiapine 25 MG TABLET. PO SCH ×3 (07:38→21:00)
[2017-12-20] MEDS: METOPROLOL TART IMMED RELEASE 50 MG TABLET PO SCH ×2 (07:39→21:00)
[2017-12-20] MEDS: CLOPIDOGREL BISULFATE 75 MG TABLET PO SCH (07:40)
[2017-12-20] MEDS: busPIRone 10 MG TABLET. PO SCH ×2 (07:40→17:05)
[2017-12-20] MEDS: FUROSEMIDE 20 MG TABLET PO SCH (07:41)
[2017-12-20] MEDS: DULoxetine HCL 60 MG CAPSULE.DR PO SCH (07:41)
[2017-12-20] MEDS: LISINOPRIL 5 MG TABLET. PO SCH (07:44)
[2017-12-20] MEDS: INSULIN LISPRO 300 UNITS/3 ML INSULN.PEN. SQ SCH ×3 (07:46→17:18)
[2017-12-20] MEDS: FLUTICASONE 50MCG/NASAL SPRAY 16GM BOTTLE. NS SCH (07:47)
--- NOTE | 2017-12-20 13:05 | PN ---
DATE: 12/18/2017 PSYCHIATRIC PROGRESS NOTE This is a late entry 12/18/2017, covers elements not covered in my initial note. SUBJECTIVE: I met with the patient in the evening. Blood sugar was elevated in the evening, Humalog increased. Compliant with bandage change. REVIEW OF SYSTEMS: Ambulation impaired, in wheelchair. No CV, , pulmonary, eye, ENT system symptoms on review. Reliability poor. MENTAL STATUS EXAM: Oriented to herself. Insight, judgment, recent and remote memory, attention, concentration, fund of knowledge poor, consistent with her diagnoses. She is quite labile at times, but no aggression noted. LABORATORY DATA: Reviewed. IMPRESSION: Unchanged from initial note. PLAN: No change from a psychiatric standpoint. DANE CHERRY MD DR: WILLIAM/erica JOB#: [id number] / [id number]
--- NOTE | 2017-12-20 13:52 | NUR ---
Behavior Intervention Response and Plan: BIRP Note: Behavior: Assumed Care of patient, patient located in Day Room at shift change. Patient exhibited the following behavior Interactive, Calm, Disorganized. Brief assessment on rounds of vital signs, medication needs, lab studies, and pain. Treatment plan problems 1-2. Intervention: Patient assessed and the following interventions initiated safety checks 15 Minute Checks Call hall in reach , Cognitive Assessment , Head to toe Assessment. Response: After interactions and interventions patient responded in the following manner, Compliant , Cooperative ,Cooperative. Continue to assess behaviors and condition will continue to monitor throughout the shift as needed. Patient educated on ADL's, and hand hygiene. Plan: Continue to monitor Master Treatment Plan for patient's progress toward short term goals of No harm To self/ others, Decreased Anxiety, longterm goals to return to previous living setting vs placement. Continue to assess patient for changes in above assessment. Monitor for medication needs, pain, and safety concerns. Hourly rounding performed to ensure safe environment.
[2017-12-20] MEDS: QUEtiapine 50 MG TABLET. PO SCH (14:40)
[2017-12-20 16:04] VITALS: BP 131/73
--- NOTE | 2017-12-20 20:35 | NUR ---
This nurse was asked to come to the day room by COSMETOLOGIST APPRENTICE staff to see patient. Upon assessment patient was slumped over in chair and very drowsy. Patient appeared to be flacid on her right side and unable to squeeze this nurses hand with right hand. Patient was also asked to smile and patients smile was asymmetrical. Patient taken to room and rapid response called. Rapid response team arrived ICU nurse started 18g IV in the L AC. Vitals obtained bp 114/68, p 83, Spo2 94% on RA FSBS 65. Dr. Granados called and orders received for STAT head CT. Radiology called and informed. Transported patient to CT.
--- NOTE | 2017-12-20 20:45 | PDOC ---
Exam Note: Zaid Note: Please also refer to the separate dictated note~for this date of service dictated separately.~Patient seen individually. Discussed the patient with Nursing staff reviewed the chart.~Reviewed interim history and current functioning. Reviewed vital signs,~Labs/ Radiology~and current medications noted below. Continue current treatment with the changes noted in the dictated addendum note Assessment: Vital Signs: Vital Signs Date Time Temp Pulse Resp B/P (MAP) Pulse Ox O2 Delivery O2 Flow Rate FiO2 12/20/17 16:04 97.2 76 16 131/73 (92) 97 12/16/17 16:21 Room Air I&O Intake and Output 12/20/17 07:00 Intake Total 600 ml Balance 600 ml Intake Oral 600 ml Labs: Laboratory Tests Test 12/20/17 07:19 12/20/17 11:52 12/20/17 17:08 12/20/17 19:09 Glucose (Fingerstick) 82 mg/dL (70-99) 112 mg/dL (70-99) H 149 mg/dL (70-99) H 103 mg/dL (70-99) H Test 12/20/17 20:30 Glucose (Fingerstick) 65 mg/dL (70-99) L Current Medications: Meds: Current Medications Acetaminophen (Tylenol) 650 mg PRN Q6HRS PRN PO MILD PAIN / TEMP Last administered on 12/04/17at 20:04; Start 12/04/17 at 02:45 Multi-Ingredient Ointment (Analgesic [place]) 1 paige PRN QID PRN TP MUSCLE PAIN; Start 12/04/17 at 02:45 Al Hydroxide/Mg Hydroxide (Mylanta Plus Xs) 15 ml PRN AFTMEALHC PRN PO DYSPEPSIA; Start 12/04/17 at 02:45 Magnesium Hydroxide (Milk Of Magnesia) 2,400 mg PRN QHS PRN PO CONSTIPATION; Start 12/04/17 at 02:45 Duloxetine HCl (Cymbalta) 60 mg DAILY PO Last administered on 12/20/17at 07:41; Start 12/04/17 at 09:00 Dextrose 12.5 gm PRN Q15MIN PRN IV SEE COMMENTS; Start 12/04/17 at 02:45 Vitamin D (Vitamin D3) 1,000 unit DAILY PO Last administered on 12/20/17at 07:37 ; Start 12/04/17 at 09:00 Clopidogrel Bisulfate (Plavix) 75 mg DAILY PO Last administered on 12/20/17 07 :40; Start 12/04/17 at 09:00 Cyanocobalamin (Vitamin B-12) 1,000 mcg DAILY PO Last administered on at 07:37; Start 12/04/17 at 09:00 Furosemide (Lasix) 10 mg DAILY PO Last administered on 12/20/17at 07:41; Start 12/04/17 at 09:00 Insulin Glargine (Lantus) 10 units QHS SQ Last administered on 12/04/17 20:00 ; Start 12/04/17 at 21:00; Stop 12/05/17 at 15:57; Status DC Insulin Human Lispro (HumaLOG) 5 units TIDWMEALS SQ Last administered on 12:06; Start 12/04/17 at 08:00; Stop 12/05/17 at 15:57; Status DC Lisinopril (Prinivil) 5 mg DAILY PO Last administered on 12/20/17at 07:44; Start 12/04/17 at 09:00 Atorvastatin Calcium (Lipitor) 10 mg QHS PO Last administered on 12/19/17at 20: 45; Start 12/04/17 at 21:00 Docusate Sodium (Colace) 100 mg PRN DAILY PRN PO CONSTIPATION; Start 12/04/17 at 03:00 Famotidine (Pepcid) 20 mg DAILY PO Last administered on 12/20/17 07:38; Start 12/04/17 at 09:00 Non-Formulary Medication (Famotidine/Ca Carb/Mag Hydrox (Tums Dual Action Tablet Chew)) 1,000 mg DAILY PO ; Start 12/04/17 at 09:00; Status UNV Fluticasone Propionate (Flonase) 2 spray DAILY NS Last administered on 07:47; Start 12/04/17 at 09:00 Acetaminophen/ Hydrocodone Bitart (Lortab 5/325) 1 tab PRN Q6HRS PRN PO PAIN Last administered on 12/15/17 14:16; Start 12/04/17 at 03:00 Lidocaine (Lidoderm) 1 patch PRN DAILY PRN TD PAIN; Start 12/04/17 at 09:00 Metformin HCl (Glucophage) 500 mg BIDWMEALS PO Last administered on 12/18/17at 10 :28; Start 12/04/17 at 08:00; Stop 12/18/17 at 16:49; Status DC Multivitamins/ Calcium (Thera-M Plus) 1 tab DAILY PO Last administered on at 07:38; Start 12/04/17 at 09:00 Non-Formulary Medication (Nebivolol Hcl (Bystolic)) 5 mg BID PO ; Start at 09:00; Stop 12/04/17 at 09:00; Status DC Pantoprazole Sodium (Protonix) 40 mg DAILYAC PO Last administered on 12/20/17at 07:37; Start 12/04/17 at 07:30 Artificial Tears (Artificial Tears) 1 drop PRN QID PRN OU DRY EYE; Start at 03:00 Metoprolol Tartrate (Lopressor) 50 mg BID PO Last administered on 12/20/17at 07: 39; Start 12/04/17 at 09:00 Insulin Human Lispro (HumaLOG) 9 units 1X ONCE SQ Last administered on at 12:24; Start 12/04/17 at 12:15; Stop 12/04/17 at 12:16; Status DC Insulin Glargine (Lantus) 15 units QHS SQ Last administered on 12/17/17at 20:14; Start 12/05/17 at 21:00; Stop 12/18/17 at 16:48; Status DC Insulin Human Lispro (HumaLOG) 7 units TIDWMEALS SQ Last administered on at 12:22; Start 12/05/17 at 17:00; Stop 12/18/17 at 16:49; Status DC Olanzapine (ZyPREXA ZYDIS) 2.5 mg PRN Q2HR PRN PO PSYCHOSIS Last administered on 12/19/17at 15:51; Start 12/05/17 at 18:15 Buspirone HCl (Buspar) 5 mg BID PO Last administered on 12/12/17at 20:41; Start 12/06/17 at 09:00; Stop 12/12/17 at 23:53; Status DC Quetiapine Fumarate (SEROquel) 12.5 mg DAILY@1500 PO Last administered on at 15:25; Start 12/08/17 at 15:00; Stop 12/10/17 at 15:00; Status DC Quetiapine Fumarate (SEROquel) 25 mg DAILY@1500 PO Last administered on at 15:09; Start 12/10/17 at 15:00; Stop 12/11/17 at 18:07; Status DC Quetiapine Fumarate (SEROquel) 37.5 mg DAILY@1500 PO Last administered on at 15:53; Start 12/12/17 at 15:00; Stop 12/14/17 at 18:47; Status DC Buspirone HCl (Buspar) 5 mg BID@0900,1300 PO Last administered on 12/13/17at 13: 17; Start 12/13/17 at 09:00; Stop 12/13/17 at 19:17; Status DC Buspirone HCl (Buspar) 5 mg TID PO Last administered on 12/15/17at 14:16; Start 12/13/17 at 21:00; Stop 12/15/17 at 18:33; Status DC Quetiapine Fumarate (SEROquel) 50 mg DAILY@1500 PO Last administered on at 14:40; Start 12/15/17 at 15:00 Buspirone HCl (Buspar) 10 mg BID@0900,1700 PO Last administered on 12/20/17at 17 :05; Start 12/16/17 at 09:00 Insulin Human Lispro (HumaLOG) 12 units 1X ONCE SQ Last administered on at 11:36; Start 12/16/17 at 11:30; Stop 12/16/17 at 11:32; Status DC Quetiapine Fumarate (SEROquel) 25 mg NOON PO Last administered on 12/20/17at 12: 11; Start 12/17/17 at 12:00 Quetiapine Fumarate (SEROquel) 12.5 mg BID PO Last administered on 12/20/17at 07 :38; Start 12/17/17 at 21:00 Clindamycin HCl (Cleocin) 450 mg TID PO Last administered on 12/20/17at 14:40; Start 12/17/17 at 21:00 Lactobacillus Rhamnosus (Culturelle) 1 cap BID PO Last administered on at 07:37; Start 12/17/17 at 21:00 Insulin Glargine (Lantus) 20 units QHS SQ Last administered on 12/19/17at 20:47 ; Start 12/18/17 at 21:00 Insulin Human Lispro (HumaLOG) 7 units DAILYWBKFT SQ Last administered on at 08:02; Start 12/19/17 at 08:00 Metformin HCl (Glucophage) 1,000 mg BIDWMEALS PO Last administered on at 17:05; Start 12/18/17 at 17:00 Insulin Human Lispro (HumaLOG) 10 units DAILYWLUN SQ Last administered on at 12:12; Start 12/19/17 at 12:00 Insulin Human Lispro (HumaLOG) 12 units DAILYWSUP SQ Last administered on at 17:18; Start 12/18/17 at 17:00 Active Scripts Active Reported Vitamin D3 (Cholecalciferol (Vitamin D3)) 1,000 Unit Tablet 1,000 Unit PO DAILY Clopidogrel (Clopidogrel Bisulfate) 75 Mg Tablet 75 Mg PO DAILY Flonase Sensimist (Fluticasone Furoate) 9.9 Ml [place].susp 2 Sprays NS DAILY Docusate Sodium 250 Mg Capsule 250 Mg PO PRN DAILY PRN Tums Dual Action Tablet Chew (Famotidine/Ca Carb/Mag Hydrox) 1 Each Tab.chew 1, 000 Mg PO DAILY Vitamin B-12 (Cyanocobalamin (Vitamin B-12)) 1,000 Mcg Tablet 1,000 Mcg PO DAILY Multivitamins (Multivitamin) 1 Each Tablet 1 Tab PO DAILY Furosemide 20 Mg Tablet 10 Mg PO DAILY Bystolic (Nebivolol Hcl) 5 Mg Tablet 5 Mg PO BID Zestril (Lisinopril) 5 Mg Tablet 5 Mg PO DAILY Acetaminophen 325 Mg Tablet 650 Mg PO PRN Q8HRS PRN Lidocaine 1 Each Adh..patch 1 Patch TP PRN DAILY PRN [place] 5-325 Tablet (Hydrocodone Bit/Acetaminophen) 1 Each Tablet 1 Tab PO PRN Q6HRS PRN Lipitor (Atorvastatin Calcium) 10 Mg Tablet 10 Mg PO QHS Lantus Solostar (Insulin Glargine,Hum.rec.anlog) 100 Unit/1 Ml Insuln.pen 10 Unit SQ QHS Pepcid (Famotidine) 20 Mg Tablet 20 Mg PO DAILY Pantoprazole Sodium 40 Mg Tablet.dr 40 Mg PO DAILY Milk Of Magnesia (Magnesium Hydroxide) 2,400 Mg/10 Ml Oral.susp 10 Ml PO PRN DAILY PRN Systane 0.3-0.4% Eye Drops (Propylene Glycol/Peg 400) 15 Ml Drops 1 Drop EACHEYE QID PRN Metformin Hcl 500 Mg Tablet 500 Mg PO BIDWMEALS Cymbalta (Duloxetine Hcl) 60 Mg Capsule.dr 60 Mg PO DAILY Humalog (Insulin Lispro) 100 Unit/1 Ml Insuln.pen 5 Unit SQ TIDWMEALS I have reviewed the current psychotropics carefully including drug interactions. Risk benefit ratio favors no change other than as noted in my dictated progress note. Diagnosis: Problems: (1) Anxiety disorder (2) Dementia in Alzheimer's disease with delusions (3) Dementia in Alzheimer's disease with depression (4) Dementia, vascular, with delusions (5) Dementia, vascular, with depression (6) Impulse control disorder DANE CHERRY MD Dec 20, 2017 20:45
[2017-12-20] MEDS: INSULIN GLARGINE 300 UNITS/3 ML INSULN.PEN. SQ SCH (21:00)
[2017-12-20] MEDS: ATORVASTATIN CALCIUM 10 MG TABLET. PO SCH (21:00)
--- NOTE | 2017-12-20 21:00 | NUR ---
Results from STAT head CT called to this nurse by Dr. Escobar. CT did not show signs of stoke but did show subdural hematoma. CT scan compared to last head CT on 12/04/17. Will continue to monitor
--- NOTE | 2017-12-20 21:15 | NUR ---
Patient given IV dextrose for FSBS of 57.
--- NOTE | 2017-12-20 21:20 | RAD ---
Indication: Right facial droop. Right arm weakness. Became unresponsive. Technique: Noncontrast CT head was obtained. Comparison is from December 04, 2017. One or more of the following individualized dose reduction techniques were utilized for this examination: 1. Automated exposure control 2. Adjustment of the mA and/or kV according to patient size 3. Use of iterative reconstruction technique Findings: There is prominence of the ventricles and sulci. There are areas of mild probable small vessel ischemic disease. Subdural hematoma overlying the right cerebral hemisphere measures 6 mm short axis, likely acute to subacute. There may also be some subdural hematoma on the left near the vertex, axial image 30, without any mass effect on the underlying brain parenchyma. There is no intraparenchymal hemorrhage. There is no midline shift. There is no evidence of an acute infarct. There are vascular calcifications. There is no depressed skull fracture. Small scalp hematoma overlying the right parietal region is noted. 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 IMPRESSION: 1. Small subdural hematoma overlying the right cerebral hemisphere. This appears acute to subacute. It does not exert any mass effect and there is no midline shift. There may be additional subdural hematoma on the left near the vertex. 2. There is no CT evidence of an acute infarct. 3. There is brain parenchymal volume loss and mild probable small vessel ischemic disease. Critical report was called to the patient's nurse, Ivania, at 2114 hours. Electronically signed by: Fuad Shaffer MD (12/20/2017 9:17 PM) [facility]
--- NOTE | 2017-12-20 22:10 | NUR ---
Patients VS rechecked BP 131/61 P 75, Sp02 95% on RA. FSBS 102. Will continue to monitor.
--- NOTE | 2017-12-21 02:02 | PN ---
DATE: 12/19/2017 This is a late entry for 12/19/2017 and covers elements not covered in my initial note of 12/19/2017. SUBJECTIVE: I met with the patient in the evening. The patient remains confused, much more pleasant, less paranoid, less irritable, cooperative when nursing staff changed her dressing. REVIEW OF SYSTEMS: Ambulation impaired, in wheelchair. No CV, , pulmonary, eye, ENT system symptoms on review. Reliability poor. MENTAL STATUS EXAM: Oriented to herself. Insight, judgment, recent and remote memory, attention, concentration, fund of knowledge poor, consistent with her diagnosis as mentioned in my initial note. PLAN: Continue current psychotropics. Adjust as indicated. DANE CHERRY MD DR: WILLIAM/erica JOB#: [id number] / [id number]
[2017-12-21 05:49] VITALS: BP 149/74
[2017-12-21] MEDS: CLINDAMYCIN HCL 150 MG CAPSULE PO SCH ×3 (07:53→20:23)
[2017-12-21] MEDS: CHOLECALCIFEROL (VITAMIN D3) 1,000 UNIT TABLET PO SCH (07:53)
[2017-12-21] MEDS: CLOPIDOGREL BISULFATE 75 MG TABLET PO SCH (07:53)
[2017-12-21] MEDS: FAMOTIDINE 20 MG TABLET PO SCH (07:53)
[2017-12-21] MEDS: FUROSEMIDE 20 MG TABLET PO SCH (07:53)
[2017-12-21] MEDS: MULTIVITAMIN with MINERAL TABLET. PO SCH (07:54)
[2017-12-21] MEDS: METOPROLOL TART IMMED RELEASE 50 MG TABLET PO SCH ×2 (07:54→20:24)
[2017-12-21] MEDS: QUEtiapine 25 MG TABLET. PO SCH ×3 (07:54→20:24)
[2017-12-21] MEDS: LACTOBACILLUS RHAMNOSUS GG 1 CAPSULE. PO SCH ×2 (07:54→20:22)
[2017-12-21] MEDS: PANTOPRAZOLE 40 MG TABLET. PO SCH (07:55)
[2017-12-21] MEDS: metFORMIN 500 MG TABLET PO SCH ×2 (07:55→18:07)
[2017-12-21] MEDS: CYANOCOBALAMIN (VITAMIN B-12) 1,000 MCG TABLET. PO SCH (07:55)
[2017-12-21] MEDS: busPIRone 10 MG TABLET. PO SCH ×2 (07:55→18:07)
[2017-12-21] MEDS: DULoxetine HCL 60 MG CAPSULE.DR PO SCH (07:55)
[2017-12-21] MEDS: INSULIN LISPRO 300 UNITS/3 ML INSULN.PEN. SQ SCH ×3 (07:57→18:09)
[2017-12-21] MEDS: LISINOPRIL 5 MG TABLET. PO SCH (08:01)
--- NOTE | 2017-12-21 10:34 | NUR ---
SW spoke w/pt's dtr in law and provided updates on dc plan targeted for end of this week. SW faxed updated clinical notes to pt's facility.
[2017-12-21] MEDS: FLUTICASONE 50MCG/NASAL SPRAY 16GM BOTTLE. NS SCH (11:19)
[2017-12-21] MEDS: QUEtiapine 50 MG TABLET. PO SCH (14:16)
[2017-12-21 16:43] VITALS: BP 98/68
--- NOTE | 2017-12-21 20:00 | NUR ---
Behavior Intervention Response and Plan: BIRP Note: Behavior: Assumed Care of patient, patient located in Day Room at shift change. Patient exhibited the following behavior Interactive, Disorganized, Social. Brief assessment on rounds of vital signs, medication needs, lab studies, and pain. Treatment plan problems . Intervention: Patient assessed and the following interventions initiated safety checks 15 Minute Checks Cognitive Assessment , Head to toe Assessment , Medications. Response: After interactions and interventions patient responded in the following manner, Disorganized , Cooperative ,Compliant. Continue to assess behaviors and condition will continue to monitor throughout the shift as needed. Patient educated on ADL's, and hand hygiene. Plan: Continue to monitor Master Treatment Plan for patient's progress toward short term goals of Decreased Agitation, Decreased Anxiety, bolter helper goals to return to previous living setting vs placement. Continue to assess patient for changes in above assessment. Monitor for medication needs, pain, and safety concerns. Hourly rounding performed to ensure safe environment.
--- NOTE | 2017-12-21 20:08 | PDOC ---
Exam Note: Zaid Note: Please also refer to the separate dictated note~for this date of service dictated separately.~Patient seen individually. Discussed the patient with Nursing staff reviewed the chart.~Reviewed interim history and current functioning. Reviewed vital signs,~Labs/ Radiology~and current medications noted below. Continue current treatment with the changes noted in the dictated addendum note Assessment: Vital Signs: Vital Signs Date Time Temp Pulse Resp B/P (MAP) Pulse Ox O2 Delivery O2 Flow Rate FiO2 12/21/17 16:43 97.5 89 17 98/68 (78) 97 Room Air I&O Intake and Output 12/21/17 07:00 Intake Total 660 ml Balance 660 ml Intake Oral 660 ml # Bowel Movements 1 Labs: Laboratory Tests Test 12/20/17 20:30 12/20/17 21:15 12/20/17 22:16 12/20/17 23:58 Glucose (Fingerstick) 65 mg/dL (70-99) L 57 mg/dL (70-99) L 102 mg/dL (70-99) H 123 mg/dL (70-99) H Test 12/21/17 05:00 12/21/17 07:42 12/21/17 12:10 12/21/17 16:40 Glucose (Fingerstick) 139 mg/dL (70-99) H 127 mg/dL (70-99) H 136 mg/dL (70-99) H 193 mg/dL (70-99) H Test 12/21/17 19:09 Glucose (Fingerstick) 294 mg/dL (70-99) H Current Medications: Meds: Current Medications Acetaminophen (Tylenol) 650 mg PRN Q6HRS PRN PO MILD PAIN / TEMP Last administered on 12/04/17at 20:04; Start 12/04/17 at 02:45 Multi-Ingredient Ointment (Analgesic [place]) 1 paige PRN QID PRN TP MUSCLE PAIN; Start 12/04/17 at 02:45 Al Hydroxide/Mg Hydroxide (Mylanta Plus Xs) 15 ml PRN AFTMEALHC PRN PO DYSPEPSIA; Start 12/04/17 at 02:45 Magnesium Hydroxide (Milk Of Magnesia) 2,400 mg PRN QHS PRN PO CONSTIPATION; Start 12/04/17 at 02:45 Duloxetine HCl (Cymbalta) 60 mg DAILY PO Last administered on 12/21/17 07:55; Start 12/04/17 at 09:00 Dextrose 12.5 gm PRN Q15MIN PRN IV SEE COMMENTS Last administered on 12/20/17 21:19; Start 12/04/17 at 02:45 Vitamin D (Vitamin D3) 1,000 unit DAILY PO Last administered on 12/21/17 07:53 ; Start 12/04/17 at 09:00 Clopidogrel Bisulfate (Plavix) 75 mg DAILY PO Last administered on 12/21/17 07 :53; Start 12/04/17 at 09:00 Cyanocobalamin (Vitamin B-12) 1,000 mcg DAILY PO Last administered on 07:55; Start 12/04/17 at 09:00 Furosemide (Lasix) 10 mg DAILY PO Last administered on 12/21/17 07:53; Start 12/04/17 at 09:00 Insulin Glargine (Lantus) 10 units QHS SQ Last administered on 12/04/17 20:00 ; Start 12/04/17 at 21:00; Stop 12/05/17 at 15:57; Status DC Insulin Human Lispro (HumaLOG) 5 units TIDWMEALS SQ Last administered on 12:06; Start 12/04/17 at 08:00; Stop 12/05/17 at 15:57; Status DC Lisinopril (Prinivil) 5 mg DAILY PO Last administered on 12/21/17 08:01; Start 12/04/17 at 09:00 Atorvastatin Calcium (Lipitor) 10 mg QHS PO Last administered on 12/19/17at 20: 45; Start 12/04/17 at 21:00 Docusate Sodium (Colace) 100 mg PRN DAILY PRN PO CONSTIPATION; Start 12/04/17 at 03:00 Famotidine (Pepcid) 20 mg DAILY PO Last administered on 12/21/17 07:53; Start 12/04/17 at 09:00 Non-Formulary Medication (Famotidine/Ca Carb/Mag Hydrox (Tums Dual Action Tablet Chew)) 1,000 mg DAILY PO ; Start 12/04/17 at 09:00; Status UNV Fluticasone Propionate (Flonase) 2 spray DAILY NS Last administered on at 11:19; Start 12/04/17 at 09:00 Acetaminophen/ Hydrocodone Bitart (Lortab 5/325) 1 tab PRN Q6HRS PRN PO PAIN Last administered on 12/15/17at 14:16; Start 12/04/17 at 03:00 Lidocaine (Lidoderm) 1 patch PRN DAILY PRN TD PAIN; Start 12/04/17 at 09:00 Metformin HCl (Glucophage) 500 mg BIDWMEALS PO Last administered on 12/18/17at 10 :28; Start 12/04/17 at 08:00; Stop 12/18/17 at 16:49; Status DC Multivitamins/ Calcium (Thera-M Plus) 1 tab DAILY PO Last administered on at 07:54; Start 12/04/17 at 09:00 Non-Formulary Medication (Nebivolol Hcl (Bystolic)) 5 mg BID PO ; Start at 09:00; Stop 12/04/17 at 09:00; Status DC Pantoprazole Sodium (Protonix) 40 mg DAILYAC PO Last administered on 12/21/17at 07:55; Start 12/04/17 at 07:30 Artificial Tears (Artificial Tears) 1 drop PRN QID PRN OU DRY EYE; Start at 03:00 Metoprolol Tartrate (Lopressor) 50 mg BID PO Last administered on 12/21/17at 07: 54; Start 12/04/17 at 09:00 Insulin Human Lispro (HumaLOG) 9 units 1X ONCE SQ Last administered on at 12:24; Start 12/04/17 at 12:15; Stop 12/04/17 at 12:16; Status DC Insulin Glargine (Lantus) 15 units QHS SQ Last administered on 12/17/17at 20:14; Start 12/05/17 at 21:00; Stop 12/18/17 at 16:48; Status DC Insulin Human Lispro (HumaLOG) 7 units TIDWMEALS SQ Last administered on at 12:22; Start 12/05/17 at 17:00; Stop 12/18/17 at 16:49; Status DC Olanzapine (ZyPREXA ZYDIS) 2.5 mg PRN Q2HR PRN PO PSYCHOSIS Last administered on 12/19/17at 15:51; Start 12/05/17 at 18:15 Buspirone HCl (Buspar) 5 mg BID PO Last administered on 12/12/17at 20:41; Start 12/06/17 at 09:00; Stop 12/12/17 at 23:53; Status DC Quetiapine Fumarate (SEROquel) 12.5 mg DAILY@1500 PO Last administered on at 15:25; Start 12/08/17 at 15:00; Stop 12/10/17 at 15:00; Status DC Quetiapine Fumarate (SEROquel) 25 mg DAILY@1500 PO Last administered on at 15:09; Start 12/10/17 at 15:00; Stop 12/11/17 at 18:07; Status DC Quetiapine Fumarate (SEROquel) 37.5 mg DAILY@1500 PO Last administered on at 15:53; Start 12/12/17 at 15:00; Stop 12/14/17 at 18:47; Status DC Buspirone HCl (Buspar) 5 mg BID@0900,1300 PO Last administered on 12/13/17at 13: 17; Start 12/13/17 at 09:00; Stop 12/13/17 at 19:17; Status DC Buspirone HCl (Buspar) 5 mg TID PO Last administered on 12/15/17 14:16; Start 12/13/17 at 21:00; Stop 12/15/17 at 18:33; Status DC Quetiapine Fumarate (SEROquel) 50 mg DAILY@1500 PO Last administered on at 14:16; Start 12/15/17 at 15:00 Buspirone HCl (Buspar) 10 mg BID@0900,1700 PO Last administered on 12/21/17at 18 :07; Start 12/16/17 at 09:00 Insulin Human Lispro (HumaLOG) 12 units 1X ONCE SQ Last administered on at 11:36; Start 12/16/17 at 11:30; Stop 12/16/17 at 11:32; Status DC Quetiapine Fumarate (SEROquel) 25 mg NOON PO Last administered on 12/21/17 12: 48; Start 12/17/17 at 12:00 Quetiapine Fumarate (SEROquel) 12.5 mg BID PO Last administered on 12/21/17 07 :54; Start 12/17/17 at 21:00 Clindamycin HCl (Cleocin) 450 mg TID PO Last administered on 12/21/17 14:16; Start 12/17/17 at 21:00 Lactobacillus Rhamnosus (Culturelle) 1 cap BID PO Last administered on 07:54; Start 12/17/17 at 21:00 Insulin Glargine (Lantus) 20 units QHS SQ Last administered on 12/19/17 20:47 ; Start 12/18/17 at 21:00 Insulin Human Lispro (HumaLOG) 7 units DAILYWBKFT SQ Last administered on 07:57; Start 12/19/17 at 08:00 Metformin HCl (Glucophage) 1,000 mg BIDWMEALS PO Last administered on 18:07; Start 12/18/17 at 17:00 Insulin Human Lispro (HumaLOG) 10 units DAILYWLUN SQ Last administered on at 12:51; Start 12/19/17 at 12:00 Insulin Human Lispro (HumaLOG) 12 units DAILYWSUP SQ Last administered on 18:09; Start 12/18/17 at 17:00 Active Scripts Active Reported Vitamin D3 (Cholecalciferol (Vitamin D3)) 1,000 Unit Tablet 1,000 Unit PO DAILY Clopidogrel (Clopidogrel Bisulfate) 75 Mg Tablet 75 Mg PO DAILY Flonase Sensimist (Fluticasone Furoate) 9.9 Ml [place].susp 2 Sprays NS DAILY Docusate Sodium 250 Mg Capsule 250 Mg PO PRN DAILY PRN Tums Dual Action Tablet Chew (Famotidine/Ca Carb/Mag Hydrox) 1 Each Tab.chew 1, 000 Mg PO DAILY Vitamin B-12 (Cyanocobalamin (Vitamin B-12)) 1,000 Mcg Tablet 1,000 Mcg PO DAILY Multivitamins (Multivitamin) 1 Each Tablet 1 Tab PO DAILY Furosemide 20 Mg Tablet 10 Mg PO DAILY Bystolic (Nebivolol Hcl) 5 Mg Tablet 5 Mg PO BID Zestril (Lisinopril) 5 Mg Tablet 5 Mg PO DAILY Acetaminophen 325 Mg Tablet 650 Mg PO PRN Q8HRS PRN Lidocaine 1 Each Adh..patch 1 Patch TP PRN DAILY PRN [place] 5-325 Tablet (Hydrocodone Bit/Acetaminophen) 1 Each Tablet 1 Tab PO PRN Q6HRS PRN Lipitor (Atorvastatin Calcium) 10 Mg Tablet 10 Mg PO QHS Lantus Solostar (Insulin Glargine,Hum.rec.anlog) 100 Unit/1 Ml Insuln.pen 10 Unit SQ QHS Pepcid (Famotidine) 20 Mg Tablet 20 Mg PO DAILY Pantoprazole Sodium 40 Mg Tablet.dr 40 Mg PO DAILY Milk Of Magnesia (Magnesium Hydroxide) 2,400 Mg/10 Ml Oral.susp 10 Ml PO PRN DAILY PRN Systane 0.3-0.4% Eye Drops (Propylene Glycol/Peg 400) 15 Ml Drops 1 Drop EACHEYE QID PRN Metformin Hcl 500 Mg Tablet 500 Mg PO BIDWMEALS Cymbalta (Duloxetine Hcl) 60 Mg Capsule.dr 60 Mg PO DAILY Humalog (Insulin Lispro) 100 Unit/1 Ml Insuln.pen 5 Unit SQ TIDWMEALS I have reviewed the current psychotropics carefully including drug interactions. Risk benefit ratio favors no change other than as noted in my dictated progress note. Diagnosis: Problems: (1) Anxiety disorder (2) Dementia in Alzheimer's disease with delusions (3) Dementia in Alzheimer's disease with depression (4) Dementia, vascular, with delusions (5) Dementia, vascular, with depression (6) Impulse control disorder DANE CHERRY MD Dec 21, 2017 20:08
[2017-12-21] MEDS: ATORVASTATIN CALCIUM 10 MG TABLET. PO SCH (20:29)
[2017-12-21] MEDS: INSULIN GLARGINE 300 UNITS/3 ML INSULN.PEN. SQ SCH (20:31)
--- NOTE | 2017-12-21 23:46 | PN ---
DATE: 12/20/2017 This late entry for 12/20/2017 covers elements not covered in my initial note. SUBJECTIVE: I met with the patient in the evening. She slept 7 hours, compliant with medications. Appetite is fair. Otherwise, doing better, remains confused. REVIEW OF SYSTEMS: Ambulation impaired, in wheelchair. No CV, , pulmonary, eye system symptoms on review. MENTAL STATUS EXAM: Oriented to herself. Insight, judgment, recent and remote memory, attention, concentration, fund of knowledge poor, consistent with her diagnosis. She is pleasant, smiling as I met with her, quite friendly with another demented male patient on the unit and they were sitting together at the table. LABORATORY DATA: Reviewed. IMPRESSION: Major neurocognitive disorder, Alzheimer, vascular with delusion, depression, behavioral disturbance. PLAN: Continue psychotropics from initial note. MAN Sheila CHERRY MD DR: WILLIAM/erica JOB#: [id number] / [id number]
[2017-12-22 06:12] VITALS: BP 114/46
[2017-12-22] MEDS: busPIRone 10 MG TABLET. PO SCH ×2 (08:58→16:33)
[2017-12-22] MEDS: LACTOBACILLUS RHAMNOSUS GG 1 CAPSULE. PO SCH ×2 (08:59→20:07)
[2017-12-22] MEDS: metFORMIN 500 MG TABLET PO SCH ×2 (08:59→16:33)
[2017-12-22] MEDS: CLINDAMYCIN HCL 150 MG CAPSULE PO SCH ×3 (08:59→20:12)
[2017-12-22] MEDS: METOPROLOL TART IMMED RELEASE 50 MG TABLET PO SCH ×2 (08:59→20:08)
[2017-12-22] MEDS: CYANOCOBALAMIN (VITAMIN B-12) 1,000 MCG TABLET. PO SCH (08:59)
[2017-12-22] MEDS: MULTIVITAMIN with MINERAL TABLET. PO SCH (08:59)
[2017-12-22] MEDS: CHOLECALCIFEROL (VITAMIN D3) 1,000 UNIT TABLET PO SCH (09:00)
[2017-12-22] MEDS: DULoxetine HCL 60 MG CAPSULE.DR PO SCH (09:00)
[2017-12-22] MEDS: FAMOTIDINE 20 MG TABLET PO SCH (09:00)
[2017-12-22] MEDS: CLOPIDOGREL BISULFATE 75 MG TABLET PO SCH (09:00)
[2017-12-22] MEDS: FUROSEMIDE 20 MG TABLET PO SCH (09:00)
[2017-12-22] MEDS: QUEtiapine 25 MG TABLET. PO SCH ×3 (09:00→20:08)
[2017-12-22] MEDS: PANTOPRAZOLE 40 MG TABLET. PO SCH (09:00)
[2017-12-22] MEDS: LISINOPRIL 5 MG TABLET. PO SCH (09:01)
[2017-12-22] MEDS: FLUTICASONE 50MCG/NASAL SPRAY 16GM BOTTLE. NS SCH (09:03)
[2017-12-22] MEDS: INSULIN LISPRO 300 UNITS/3 ML INSULN.PEN. SQ SCH ×3 (09:04→17:00)
--- NOTE | 2017-12-22 09:34 | NUR ---
Patient very pleasant with medication pass. Compliant with meds taken whole, cooperative with IV assessment and flush. (Patient has IV in L. AC, no fluids currently infusing or ordered). Patient stated she was tired, assisted to lay down in bed. Bed alarm on for safety/fall prevention.
--- NOTE | 2017-12-22 15:00 | NUR ---
WEEKLY THERAPEUTIC RECREATION NOTE Date of Admission: 12/04/2017 Date of AT Assessment: 12/08/2017 Goal aimed: to increase stimulation and socialization Initial goal: Pt. will participate in at least two groups a day Weekly progress towards goal: Achieved. Group participation level: Moderate Behaviors observed: Engages in groups, speaks to staff and patients. Sometimes wanders the chaudhary if she is not interested in groups. Plan: No change to goal.
[2017-12-22 16:24] VITALS: BP 127/61
[2017-12-22] MEDS: QUEtiapine 50 MG TABLET. PO SCH (16:32)
--- NOTE | 2017-12-22 17:31 | NUR ---
Dressings to skin tears changed to left arm-three areas. Used xeroform gauze, non adhesive pad and kerlix and covered with white rolled bandage with adhesive. Areas have steri-strips under xeroform gauze, edges did not appear approximated at this time. Dated and initialed. There is still edema noted to left hand. Dr. Granados aware of edema, patient on clindamycin. Dressing to skin tear changed on right arm-one area. Used xeroform gauze, non adhesive pad, kerlix and covered with white rolled adhesive bandage. This area also has steri strips remaining. Dated and initialed. Dressing to right knee removed, scab in place. Healing well. Placed standard bandaid over scab for protection against friction from pants. IV from left AC removed. No complications noted. Patient tolerated bandage change well. Patient was very cooperative but became tearful at one point when nurse wrote date on bandage and she realized she didn't know what day it was.
--- NOTE | 2017-12-22 20:00 | NUR ---
Behavior Intervention Response and Plan: BIRP Note: Behavior: Assumed Care of patient, patient located in Day Room at shift change. Patient exhibited the following behavior Interactive, Disorganized, Compliant. Brief assessment on rounds of vital signs, medication needs, lab studies, and pain. Treatment plan problems . Intervention: Patient assessed and the following interventions initiated safety checks 15 Minute Checks Cognitive Assessment , Head to toe Assessment , Medications. Response: After interactions and interventions patient responded in the following manner, Cooperative , Disorganized ,Calm. Continue to assess behaviors and condition will continue to monitor throughout the shift as needed. Patient educated on ADL's, and hand hygiene. Plan: Continue to monitor Master Treatment Plan for patient's progress toward short term goals of Decreased Agitation, Decreased Anxiety, terminal superintendent goals to return to previous living setting vs placement. Continue to assess patient for changes in above assessment. Monitor for medication needs, pain, and safety concerns. Hourly rounding performed to ensure safe environment.
[2017-12-22] MEDS: ATORVASTATIN CALCIUM 10 MG TABLET. PO SCH (20:07)
[2017-12-22] MEDS: INSULIN GLARGINE 300 UNITS/3 ML INSULN.PEN. SQ SCH (20:14)
--- NOTE | 2017-12-22 20:53 | PDOC ---
Exam Note: Zaid Note: Please also refer to the separate dictated note~for this date of service dictated separately.~Patient seen individually. Discussed the patient with Nursing staff reviewed the chart.~Reviewed interim history and current functioning. Reviewed vital signs,~Labs/ Radiology~and current medications noted below. Continue current treatment with the changes noted in the dictated addendum note Assessment: Vital Signs: Vital Signs Date Time Temp Pulse Resp B/P (MAP) Pulse Ox O2 Delivery O2 Flow Rate FiO2 12/22/17 20:08 78 127/61 12/22/17 16:24 97.5 16 97 12/21/17 16:43 Room Air I&O Intake and Output 12/22/17 07:00 Intake Total 460 ml Balance 460 ml Intake Oral 460 ml # Bowel Movements 1 Labs: Laboratory Tests Test 12/22/17 07:09 12/22/17 11:54 12/22/17 16:50 12/22/17 19:07 Glucose (Fingerstick) 123 mg/dL (70-99) H 235 mg/dL (70-99) H 84 mg/dL (70-99) 132 mg/dL (70-99) H Current Medications: Meds: Current Medications Acetaminophen (Tylenol) 650 mg PRN Q6HRS PRN PO MILD PAIN / TEMP Last administered on 12/04/17at 20:04; Start 12/04/17 at 02:45 Multi-Ingredient Ointment (Analgesic [place]) 1 paige PRN QID PRN TP MUSCLE PAIN; Start 12/04/17 at 02:45 Al Hydroxide/Mg Hydroxide (Mylanta Plus Xs) 15 ml PRN AFTMEALHC PRN PO DYSPEPSIA; Start 12/04/17 at 02:45 Magnesium Hydroxide (Milk Of Magnesia) 2,400 mg PRN QHS PRN PO CONSTIPATION; Start 12/04/17 at 02:45 Duloxetine HCl (Cymbalta) 60 mg DAILY PO Last administered on 12/22/17at 09:00; Start 12/04/17 at 09:00 Dextrose 12.5 gm PRN Q15MIN PRN IV SEE COMMENTS Last administered on 12/20/17at 21:19; Start 12/04/17 at 02:45 Vitamin D (Vitamin D3) 1,000 unit DAILY PO Last administered on 12/22/17at 09:00 ; Start 12/04/17 at 09:00 Clopidogrel Bisulfate (Plavix) 75 mg DAILY PO Last administered on 12/22/17 09 :00; Start 12/04/17 at 09:00 Cyanocobalamin (Vitamin B-12) 1,000 mcg DAILY PO Last administered on 08:59; Start 12/04/17 at 09:00 Furosemide (Lasix) 10 mg DAILY PO Last administered on 12/22/17 09:00; Start 12/04/17 at 09:00 Insulin Glargine (Lantus) 10 units QHS SQ Last administered on 12/04/17 20:00 ; Start 12/04/17 at 21:00; Stop 12/05/17 at 15:57; Status DC Insulin Human Lispro (HumaLOG) 5 units TIDWMEALS SQ Last administered on 12:06; Start 12/04/17 at 08:00; Stop 12/05/17 at 15:57; Status DC Lisinopril (Prinivil) 5 mg DAILY PO Last administered on 12/22/17 09:01; Start 12/04/17 at 09:00 Atorvastatin Calcium (Lipitor) 10 mg QHS PO Last administered on 12/22/17 20: 07; Start 12/04/17 at 21:00 Docusate Sodium (Colace) 100 mg PRN DAILY PRN PO CONSTIPATION; Start 12/04/17 at 03:00 Famotidine (Pepcid) 20 mg DAILY PO Last administered on 12/22/17 09:00; Start 12/04/17 at 09:00 Non-Formulary Medication (Famotidine/Ca Carb/Mag Hydrox (Tums Dual Action Tablet Chew)) 1,000 mg DAILY PO ; Start 12/04/17 at 09:00; Status UNV Fluticasone Propionate (Flonase) 2 spray DAILY NS Last administered on 09:03; Start 12/04/17 at 09:00 Acetaminophen/ Hydrocodone Bitart (Lortab 5/325) 1 tab PRN Q6HRS PRN PO PAIN Last administered on 12/15/17 14:16; Start 12/04/17 at 03:00 Lidocaine (Lidoderm) 1 patch PRN DAILY PRN TD PAIN; Start 12/04/17 at 09:00 Metformin HCl (Glucophage) 500 mg BIDWMEALS PO Last administered on 12/18/17at 10 :28; Start 12/04/17 at 08:00; Stop 12/18/17 at 16:49; Status DC Multivitamins/ Calcium (Thera-M Plus) 1 tab DAILY PO Last administered on at 08:59; Start 12/04/17 at 09:00 Non-Formulary Medication (Nebivolol Hcl (Bystolic)) 5 mg BID PO ; Start at 09:00; Stop 12/04/17 at 09:00; Status DC Pantoprazole Sodium (Protonix) 40 mg DAILYAC PO Last administered on 12/22/17at 09:00; Start 12/04/17 at 07:30 Artificial Tears (Artificial Tears) 1 drop PRN QID PRN OU DRY EYE; Start at 03:00 Metoprolol Tartrate (Lopressor) 50 mg BID PO Last administered on 12/22/17at 20: 08; Start 12/04/17 at 09:00 Insulin Human Lispro (HumaLOG) 9 units 1X ONCE SQ Last administered on at 12:24; Start 12/04/17 at 12:15; Stop 12/04/17 at 12:16; Status DC Insulin Glargine (Lantus) 15 units QHS SQ Last administered on 12/17/17at 20:14; Start 12/05/17 at 21:00; Stop 12/18/17 at 16:48; Status DC Insulin Human Lispro (HumaLOG) 7 units TIDWMEALS SQ Last administered on at 12:22; Start 12/05/17 at 17:00; Stop 12/18/17 at 16:49; Status DC Olanzapine (ZyPREXA ZYDIS) 2.5 mg PRN Q2HR PRN PO PSYCHOSIS Last administered on 12/19/17at 15:51; Start 12/05/17 at 18:15 Buspirone HCl (Buspar) 5 mg BID PO Last administered on 12/12/17at 20:41; Start 12/06/17 at 09:00; Stop 12/12/17 at 23:53; Status DC Quetiapine Fumarate (SEROquel) 12.5 mg DAILY@1500 PO Last administered on 15:25; Start 12/08/17 at 15:00; Stop 12/10/17 at 15:00; Status DC Quetiapine Fumarate (SEROquel) 25 mg DAILY@1500 PO Last administered on at 15:09; Start 12/10/17 at 15:00; Stop 12/11/17 at 18:07; Status DC Quetiapine Fumarate (SEROquel) 37.5 mg DAILY@1500 PO Last administered on at 15:53; Start 12/12/17 at 15:00; Stop 12/14/17 at 18:47; Status DC Buspirone HCl (Buspar) 5 mg BID@0900,1300 PO Last administered on 12/13/17 13: 17; Start 12/13/17 at 09:00; Stop 12/13/17 at 19:17; Status DC Buspirone HCl (Buspar) 5 mg TID PO Last administered on 12/15/17at 14:16; Start 12/13/17 at 21:00; Stop 12/15/17 at 18:33; Status DC Quetiapine Fumarate (SEROquel) 50 mg DAILY@1500 PO Last administered on at 16:32; Start 12/15/17 at 15:00 Buspirone HCl (Buspar) 10 mg BID@0900,1700 PO Last administered on 12/22/17at 16 :33; Start 12/16/17 at 09:00 Insulin Human Lispro (HumaLOG) 12 units 1X ONCE SQ Last administered on at 11:36; Start 12/16/17 at 11:30; Stop 12/16/17 at 11:32; Status DC Quetiapine Fumarate (SEROquel) 25 mg NOON PO Last administered on 12/22/17 12: 30; Start 12/17/17 at 12:00 Quetiapine Fumarate (SEROquel) 12.5 mg BID PO Last administered on 12/22/17 20 :08; Start 12/17/17 at 21:00 Clindamycin HCl (Cleocin) 450 mg TID PO Last administered on 12/22/17at 20:12; Start 12/17/17 at 21:00 Lactobacillus Rhamnosus (Culturelle) 1 cap BID PO Last administered on at 20:07; Start 12/17/17 at 21:00 Insulin Glargine (Lantus) 20 units QHS SQ Last administered on 12/22/17at 20:14 ; Start 12/18/17 at 21:00 Insulin Human Lispro (HumaLOG) 7 units DAILYWBKFT SQ Last administered on at 09:04; Start 12/19/17 at 08:00 Metformin HCl (Glucophage) 1,000 mg BIDWMEALS PO Last administered on 16:33; Start 12/18/17 at 17:00 Insulin Human Lispro (HumaLOG) 10 units DAILYWLUN SQ Last administered on 12:31; Start 12/19/17 at 12:00 Insulin Human Lispro (HumaLOG) 12 units DAILYWSUP SQ Last administered on at 18:09; Start 12/18/17 at 17:00 Active Scripts Active Reported Vitamin D3 (Cholecalciferol (Vitamin D3)) 1,000 Unit Tablet 1,000 Unit PO DAILY Clopidogrel (Clopidogrel Bisulfate) 75 Mg Tablet 75 Mg PO DAILY Flonase Sensimist (Fluticasone Furoate) 9.9 Ml [place].susp 2 Sprays NS DAILY Docusate Sodium 250 Mg Capsule 250 Mg PO PRN DAILY PRN Tums Dual Action Tablet Chew (Famotidine/Ca Carb/Mag Hydrox) 1 Each Tab.chew 1, 000 Mg PO DAILY Vitamin B-12 (Cyanocobalamin (Vitamin B-12)) 1,000 Mcg Tablet 1,000 Mcg PO DAILY Multivitamins (Multivitamin) 1 Each Tablet 1 Tab PO DAILY Furosemide 20 Mg Tablet 10 Mg PO DAILY Bystolic (Nebivolol Hcl) 5 Mg Tablet 5 Mg PO BID Zestril (Lisinopril) 5 Mg Tablet 5 Mg PO DAILY Acetaminophen 325 Mg Tablet 650 Mg PO PRN Q8HRS PRN Lidocaine 1 Each Adh..patch 1 Patch TP PRN DAILY PRN [place] 5-325 Tablet (Hydrocodone Bit/Acetaminophen) 1 Each Tablet 1 Tab PO PRN Q6HRS PRN Lipitor (Atorvastatin Calcium) 10 Mg Tablet 10 Mg PO QHS Lantus Solostar (Insulin Glargine,Hum.rec.anlog) 100 Unit/1 Ml Insuln.pen 10 Unit SQ QHS Pepcid (Famotidine) 20 Mg Tablet 20 Mg PO DAILY Pantoprazole Sodium 40 Mg Tablet.dr 40 Mg PO DAILY Milk Of Magnesia (Magnesium Hydroxide) 2,400 Mg/10 Ml Oral.susp 10 Ml PO PRN DAILY PRN Systane 0.3-0.4% Eye Drops (Propylene Glycol/Peg 400) 15 Ml Drops 1 Drop EACHEYE QID PRN Metformin Hcl 500 Mg Tablet 500 Mg PO BIDWMEALS Cymbalta (Duloxetine Hcl) 60 Mg Capsule. 60 Mg PO DAILY Humalog (Insulin Lispro) 100 Unit/1 Ml Insuln.pen 5 Unit SQ TIDWMEALS I have reviewed the current psychotropics carefully including drug interactions. Risk benefit ratio favors no change other than as noted in my dictated progress note. Diagnosis: Problems: (1) Anxiety disorder (2) Dementia in Alzheimer's disease with delusions (3) Dementia in Alzheimer's disease with depression (4) Dementia, vascular, with delusions (5) Dementia, vascular, with depression (6) Impulse control disorder DANE CHERRY MD Dec 22, 2017 20:53
--- NOTE | 2017-12-22 21:32 | PN ---
DATE: 12/21/2017 This is a late entry for 12/21/2017 covers elements not covered in my initial note. SUBJECTIVE: I met with the patient in the evening. A rapid response was called and the patient's previous evening as she seemed to have a syncopal episode. She was transferred to the ER for evaluation. CT head was unremarkable other than hematomas, which she sustained from past falls. During the day on 12/21/2017, she has been not having any further syncopal episodes. REVIEW OF SYSTEMS: Ambulation impaired with wheelchair. No CV, , pulmonary, eye, ENT system symptoms on review. Reliability poor. MENTAL STATUS EXAM: Oriented to herself. Insight, judgment, recent and remote memory, attention, concentration, fund of knowledge poor, consistent with her diagnosis mentioned in my initial note. IMPRESSION: Major neurocognitive disorder, Alzheimer, vascular with delusion, depression, behavioral disturbance, syncopal episodes, history of repeated falls. PLAN: Continue psychotropics from initial note, Cymbalta, along with Zyprexa p.r.n. DANE CHERRY MD DR: WILLIAM/erica JOB#: [id number] / [id number]
[2017-12-22] MEDS: ACETAMINOPHEN 325 MG TABLET PO PRN (21:37)
[2017-12-23 05:51] VITALS: BP 122/64
[2017-12-23] MEDS: DULoxetine HCL 60 MG CAPSULE.DR PO SCH (10:19)
[2017-12-23] MEDS: FAMOTIDINE 20 MG TABLET PO SCH (10:19)
[2017-12-23] MEDS: MULTIVITAMIN with MINERAL TABLET. PO SCH (10:20)
[2017-12-23] MEDS: FUROSEMIDE 20 MG TABLET PO SCH (10:20)
[2017-12-23] MEDS: LACTOBACILLUS RHAMNOSUS GG 1 CAPSULE. PO SCH ×2 (10:20→19:38)
[2017-12-23] MEDS: METOPROLOL TART IMMED RELEASE 50 MG TABLET PO SCH ×2 (10:20→19:38)
[2017-12-23] MEDS: CHOLECALCIFEROL (VITAMIN D3) 1,000 UNIT TABLET PO SCH (10:20)
[2017-12-23] MEDS: CLINDAMYCIN HCL 150 MG CAPSULE PO SCH ×3 (10:20→19:38)
[2017-12-23] MEDS: CYANOCOBALAMIN (VITAMIN B-12) 1,000 MCG TABLET. PO SCH (10:21)
[2017-12-23] MEDS: PANTOPRAZOLE 40 MG TABLET. PO SCH (10:21)
[2017-12-23] MEDS: metFORMIN 500 MG TABLET PO SCH ×2 (10:21→17:13)
[2017-12-23] MEDS: busPIRone 10 MG TABLET. PO SCH ×2 (10:21→17:13)
[2017-12-23] MEDS: CLOPIDOGREL BISULFATE 75 MG TABLET PO SCH (10:21)
[2017-12-23] MEDS: QUEtiapine 25 MG TABLET. PO SCH ×3 (10:21→19:38)
[2017-12-23] MEDS: LISINOPRIL 5 MG TABLET. PO SCH (10:22)
[2017-12-23] MEDS: FLUTICASONE 50MCG/NASAL SPRAY 16GM BOTTLE. NS SCH (10:27)
[2017-12-23] MEDS: INSULIN LISPRO 300 UNITS/3 ML INSULN.PEN. SQ SCH ×3 (10:29→17:12)
[2017-12-23] MEDS: ACETAMINOPHEN 325 MG TABLET PO PRN (10:37)
--- NOTE | 2017-12-23 10:38 | NUR ---
PRN tylenol 650mg given for pain. Patient complains of headache.
--- NOTE | 2017-12-23 10:59 | NUR ---
SW left message for AYAZ Nino at pt's facility to coordinate dc plans set for Wednesday.
--- NOTE | 2017-12-23 11:58 | NUR ---
Held 1200 seroquel as patient had just received AM medications at 1100.
--- NOTE | 2017-12-23 15:30 | NUR ---
VLAD played phone tag w/AYAZ Nino at [facility] regarding transportation for pt at [place] tomorrow. [facility]ica was unable to provide this SW w/any transportation companies other then [facility]. VLAD then contacted marc Medeiros's dtr in law who stated the facility's SW told her this SW would be assisting her w/transportation at [place]. This SW stated the pt's facility is ultimately responsible for pt's return back to the facility and would know more about transportation resources in the area for facilitating the dc. This SW is aware the facility SW is out of the office today and would be unable to assist Mala in completing this task. This SW researched several medical transport companies, called for carver quotes, called Mala w/the information, booked a company and Mala called w/payment. Transport is set up for Wednesday private pay.
[2017-12-23] MEDS: QUEtiapine 50 MG TABLET. PO SCH (15:35)
[2017-12-23 16:46] VITALS: BP 117/72
--- NOTE | 2017-12-23 16:53 | NUR ---
Behavior Intervention Response and Plan: BIRP Note: Behavior: Assumed Care of patient, patient located in Day Room at shift change. Patient exhibited the following behavior Calm, Interactive, Appropriate. Brief assessment on rounds of vital signs, medication needs, lab studies, and pain. Treatment plan problems 1 and 2. Intervention: Patient assessed and the following interventions initiated safety checks 15 Minute Checks Cognitive Assessment , Head to toe Assessment , Medications. Response: After interactions and interventions patient responded in the following manner, Calm , Appropriate ,Compliant. Continue to assess behaviors and condition will continue to monitor throughout the shift as needed. Patient educated on ADL's, and hand hygiene. Plan: Continue to monitor Master Treatment Plan for patient's progress toward short term goals of Decreased Agitation, Decreased Aggression, [facility] goals to return to previous living setting vs placement. Continue to assess patient for changes in above assessment. Monitor for medication needs, pain, and safety concerns. Hourly rounding performed to ensure safe environment.
--- NOTE | 2017-12-23 18:11 | NUR ---
Patient still has patrick on right side of head. Per Dr. Granados they will need to be removed at the facility as there is still too much swelling to remove at this time.
[2017-12-23] MEDS: ATORVASTATIN CALCIUM 10 MG TABLET. PO SCH (19:39)
--- NOTE | 2017-12-23 20:00 | NUR ---
Behavior Intervention Response and Plan: BIRP Note: Behavior: Assumed Care of patient, patient located in Day Room at shift change. Patient exhibited the following behavior Interactive, Calm, Disorganized. Brief assessment on rounds of vital signs, medication needs, lab studies, and pain. Treatment plan problems . Intervention: Patient assessed and the following interventions initiated safety checks 15 Minute Checks Cognitive Assessment , Head to toe Assessment , Medications. Response: After interactions and interventions patient responded in the following manner, Cooperative , Compliant ,Interactive. Continue to assess behaviors and condition will continue to monitor throughout the shift as needed. Patient educated on ADL's, and hand hygiene. Plan: Continue to monitor Master Treatment Plan for patient's progress toward short term goals of Decreased Agitation, Decreased Anxiety, terminal superintendent goals to return to previous living setting vs placement. Continue to assess patient for changes in above assessment. Monitor for medication needs, pain, and safety concerns. Hourly rounding performed to ensure safe environment.
[2017-12-23] MEDS: INSULIN GLARGINE 300 UNITS/3 ML INSULN.PEN. SQ SCH (21:00)
--- NOTE | 2017-12-23 22:25 | PDOC ---
Exam Note: Zaid Note: Please also refer to the separate dictated note~for this date of service dictated separately.~Patient seen individually. Discussed the patient with Nursing staff reviewed the chart.~Reviewed interim history and current functioning. Reviewed vital signs,~Labs/ Radiology~and current medications noted below. Continue current treatment with the changes noted in the dictated addendum note Assessment: Vital Signs: Vital Signs Date Time Temp Pulse Resp B/P (MAP) Pulse Ox O2 Delivery O2 Flow Rate FiO2 12/23/17 19:38 77 117/72 12/23/17 16:46 97.3 16 99 Room Air I&O Intake and Output 12/23/17 07:00 Intake Total 1040 ml Balance 1040 ml Intake Oral 1040 ml # Voids 1 # Bowel Movements 1 Labs: Laboratory Tests Test 12/23/17 07:47 12/23/17 11:26 12/23/17 16:53 12/23/17 19:13 Glucose (Fingerstick) 105 mg/dL (70-99) H 258 mg/dL (70-99) H 88 mg/dL (70-99) 101 mg/dL (70-99) H Current Medications: Meds: Current Medications Acetaminophen (Tylenol) 650 mg PRN Q6HRS PRN PO MILD PAIN / TEMP Last administered on 12/23/17at 10:37; Start 12/04/17 at 02:45 Multi-Ingredient Ointment (Analgesic [place]) 1 paige PRN QID PRN TP MUSCLE PAIN; Start 12/04/17 at 02:45 Al Hydroxide/Mg Hydroxide (Mylanta Plus Xs) 15 ml PRN AFTMEALHC PRN PO DYSPEPSIA; Start 12/04/17 at 02:45 Magnesium Hydroxide (Milk Of Magnesia) 2,400 mg PRN QHS PRN PO CONSTIPATION; Start 12/04/17 at 02:45 Duloxetine HCl (Cymbalta) 60 mg DAILY PO Last administered on 12/23/17at 10:19; Start 12/04/17 at 09:00 Dextrose 12.5 gm PRN Q15MIN PRN IV SEE COMMENTS Last administered on 12/20/17at 21:19; Start 12/04/17 at 02:45 Vitamin D (Vitamin D3) 1,000 unit DAILY PO Last administered on 12/23/17at 10:20 ; Start 12/04/17 at 09:00 Clopidogrel Bisulfate (Plavix) 75 mg DAILY PO Last administered on 12/23/17 10 :21; Start 12/04/17 at 09:00 Cyanocobalamin (Vitamin B-12) 1,000 mcg DAILY PO Last administered on 10:21; Start 12/04/17 at 09:00 Furosemide (Lasix) 10 mg DAILY PO Last administered on 12/23/17 10:20; Start 12/04/17 at 09:00 Insulin Glargine (Lantus) 10 units QHS SQ Last administered on 12/04/17at 20:00 ; Start 12/04/17 at 21:00; Stop 12/05/17 at 15:57; Status DC Insulin Human Lispro (HumaLOG) 5 units TIDWMEALS SQ Last administered on 12:06; Start 12/04/17 at 08:00; Stop 12/05/17 at 15:57; Status DC Lisinopril (Prinivil) 5 mg DAILY PO Last administered on 12/23/17 10:22; Start 12/04/17 at 09:00 Atorvastatin Calcium (Lipitor) 10 mg QHS PO Last administered on 12/23/17at 19: 39; Start 12/04/17 at 21:00 Docusate Sodium (Colace) 100 mg PRN DAILY PRN PO CONSTIPATION; Start 12/04/17 at 03:00 Famotidine (Pepcid) 20 mg DAILY PO Last administered on 12/23/17at 10:19; Start 12/04/17 at 09:00 Non-Formulary Medication (Famotidine/Ca Carb/Mag Hydrox (Tums Dual Action Tablet Chew)) 1,000 mg DAILY PO ; Start 12/04/17 at 09:00; Status UNV Fluticasone Propionate (Flonase) 2 spray DAILY NS Last administered on 10:27; Start 12/04/17 at 09:00 Acetaminophen/ Hydrocodone Bitart (Lortab 5/325) 1 tab PRN Q6HRS PRN PO PAIN Last administered on 12/15/17 14:16; Start 12/04/17 at 03:00 Lidocaine (Lidoderm) 1 patch PRN DAILY PRN TD PAIN; Start 12/04/17 at 09:00 Metformin HCl (Glucophage) 500 mg BIDWMEALS PO Last administered on 12/18/17 10 :28; Start 12/04/17 at 08:00; Stop 12/18/17 at 16:49; Status DC Multivitamins/ Calcium (Thera-M Plus) 1 tab DAILY PO Last administered on at 10:20; Start 12/04/17 at 09:00 Non-Formulary Medication (Nebivolol Hcl (Bystolic)) 5 mg BID PO ; Start at 09:00; Stop 12/04/17 at 09:00; Status DC Pantoprazole Sodium (Protonix) 40 mg DAILYAC PO Last administered on 12/23/17 10:21; Start 12/04/17 at 07:30 Artificial Tears (Artificial Tears) 1 drop PRN QID PRN OU DRY EYE; Start at 03:00 Metoprolol Tartrate (Lopressor) 50 mg BID PO Last administered on 12/23/17at 19: 38; Start 12/04/17 at 09:00 Insulin Human Lispro (HumaLOG) 9 units 1X ONCE SQ Last administered on at 12:24; Start 12/04/17 at 12:15; Stop 12/04/17 at 12:16; Status DC Insulin Glargine (Lantus) 15 units QHS SQ Last administered on 12/17/17at 20:14; Start 12/05/17 at 21:00; Stop 12/18/17 at 16:48; Status DC Insulin Human Lispro (HumaLOG) 7 units TIDWMEALS SQ Last administered on at 12:22; Start 12/05/17 at 17:00; Stop 12/18/17 at 16:49; Status DC Olanzapine (ZyPREXA ZYDIS) 2.5 mg PRN Q2HR PRN PO PSYCHOSIS Last administered on 12/19/17at 15:51; Start 12/05/17 at 18:15 Buspirone HCl (Buspar) 5 mg BID PO Last administered on 12/12/17at 20:41; Start 12/06/17 at 09:00; Stop 12/12/17 at 23:53; Status DC Quetiapine Fumarate (SEROquel) 12.5 mg DAILY@1500 PO Last administered on 15:25; Start 12/08/17 at 15:00; Stop 12/10/17 at 15:00; Status DC Quetiapine Fumarate (SEROquel) 25 mg DAILY@1500 PO Last administered on at 15:09; Start 12/10/17 at 15:00; Stop 12/11/17 at 18:07; Status DC Quetiapine Fumarate (SEROquel) 37.5 mg DAILY@1500 PO Last administered on at 15:53; Start 12/12/17 at 15:00; Stop 12/14/17 at 18:47; Status DC Buspirone HCl (Buspar) 5 mg BID@0900,1300 PO Last administered on 12/13/17at 13: 17; Start 12/13/17 at 09:00; Stop 12/13/17 at 19:17; Status DC Buspirone HCl (Buspar) 5 mg TID PO Last administered on 12/15/17at 14:16; Start 12/13/17 at 21:00; Stop 12/15/17 at 18:33; Status DC Quetiapine Fumarate (SEROquel) 50 mg DAILY@1500 PO Last administered on at 15:35; Start 12/15/17 at 15:00 Buspirone HCl (Buspar) 10 mg BID@0900,1700 PO Last administered on 12/23/17at 17 :13; Start 12/16/17 at 09:00 Insulin Human Lispro (HumaLOG) 12 units 1X ONCE SQ Last administered on at 11:36; Start 12/16/17 at 11:30; Stop 12/16/17 at 11:32; Status DC Quetiapine Fumarate (SEROquel) 25 mg NOON PO Last administered on 12/22/17at 12: 30; Start 12/17/17 at 12:00 Quetiapine Fumarate (SEROquel) 12.5 mg BID PO Last administered on 12/23/17at 19 :38; Start 12/17/17 at 21:00 Clindamycin HCl (Cleocin) 450 mg TID PO Last administered on 12/23/17at 19:38; Start 6/8/18 at 21:00; Stop 12/27/17 at 21:00 Lactobacillus Rhamnosus (Culturelle) 1 cap BID PO Last administered on at 19:38; Start 12/17/17 at 21:00 Insulin Glargine (Lantus) 20 units QHS SQ Last administered on 12/23/17at 21:00 ; Start 12/18/17 at 21:00 Insulin Human Lispro (HumaLOG) 7 units DAILYWBKFT SQ Last administered on at 10:29; Start 12/19/17 at 08:00 Metformin HCl (Glucophage) 1,000 mg BIDWMEALS PO Last administered on 17:13; Start 12/18/17 at 17:00 Insulin Human Lispro (HumaLOG) 10 units DAILYWLUN SQ Last administered on at 12:23; Start 12/19/17 at 12:00 Insulin Human Lispro (HumaLOG) 12 units DAILYWSUP SQ Last administered on at 18:09; Start 12/18/17 at 17:00 Active Scripts Active Reported Vitamin D3 (Cholecalciferol (Vitamin D3)) 1,000 Unit Tablet 1,000 Unit PO DAILY Clopidogrel (Clopidogrel Bisulfate) 75 Mg Tablet 75 Mg PO DAILY Flonase Sensimist (Fluticasone Furoate) 9.9 Ml [place].susp 2 Sprays NS DAILY Docusate Sodium 250 Mg Capsule 250 Mg PO PRN DAILY PRN Tums Dual Action Tablet Chew (Famotidine/Ca Carb/Mag Hydrox) 1 Each Tab.chew 1, 000 Mg PO DAILY Vitamin B-12 (Cyanocobalamin (Vitamin B-12)) 1,000 Mcg Tablet 1,000 Mcg PO DAILY Multivitamins (Multivitamin) 1 Each Tablet 1 Tab PO DAILY Furosemide 20 Mg Tablet 10 Mg PO DAILY Bystolic (Nebivolol Hcl) 5 Mg Tablet 5 Mg PO BID Zestril (Lisinopril) 5 Mg Tablet 5 Mg PO DAILY Acetaminophen 325 Mg Tablet 650 Mg PO PRN Q8HRS PRN Lidocaine 1 Each Adh..patch 1 Patch TP PRN DAILY PRN [place] 5-325 Tablet (Hydrocodone Bit/Acetaminophen) 1 Each Tablet 1 Tab PO PRN Q6HRS PRN Lipitor (Atorvastatin Calcium) 10 Mg Tablet 10 Mg PO QHS Lantus Solostar (Insulin Glargine,Hum.rec.anlog) 100 Unit/1 Ml Insuln.pen 10 Unit SQ QHS Pepcid (Famotidine) 20 Mg Tablet 20 Mg PO DAILY Pantoprazole Sodium 40 Mg Tablet.dr 40 Mg PO DAILY Milk Of Magnesia (Magnesium Hydroxide) 2,400 Mg/10 Ml Oral.susp 10 Ml PO PRN DAILY PRN Systane 0.3-0.4% Eye Drops (Propylene Glycol/Peg 400) 15 Ml Drops 1 Drop EACHEYE QID PRN Metformin Hcl 500 Mg Tablet 500 Mg PO BIDWMEALS Cymbalta (Duloxetine Hcl) 60 Mg Capsule.dr 60 Mg PO DAILY Humalog (Insulin Lispro) 100 Unit/1 Ml Insuln.pen 5 Unit SQ TIDWMEALS I have reviewed the current psychotropics carefully including drug interactions. Risk benefit ratio favors no change other than as noted in my dictated progress note. Diagnosis: Problems: (1) Anxiety disorder (2) Dementia in Alzheimer's disease with delusions (3) Dementia in Alzheimer's disease with depression (4) Dementia, vascular, with delusions (5) Dementia, vascular, with depression (6) Impulse control disorder DANE CHERRY MD Dec 23, 2017 22:25
[2017-12-23] MEDS ORDERED: CHOL10003 PO (23:42)
[2017-12-23] MEDS ORDERED: CLIN150C14 PO (23:45)
[2017-12-23] MEDS ORDERED: INSU100C SQ ×2 (23:48→23:49)
[2017-12-23] MEDS ORDERED: LACT1CAP19 PO (23:52)
[2017-12-23] MEDS ORDERED: METH29OI TP (23:54)
[2017-12-23] MEDS ORDERED: OLAN5TAB5 PO (23:56)
[2017-12-24] MEDS ORDERED: QUET50TA5 PO
[2017-12-24] MEDS ORDERED: QUET25TA5 PO ×2 (00:01→00:03)
[2017-12-24] MEDS ORDERED: BUSP10TA PO (00:04)
[2017-12-24] MEDS ORDERED: HYDR-2758 PO (00:09)
[2017-12-24] MEDS: ACETAMINOPHEN 325 MG TABLET PO PRN (05:50)
--- NOTE | 2017-12-24 05:51 | NUR ---
Tylenol given for C/o pain from scalp in area of patrick, warm moist washcloth also applied to area.
[2017-12-24 06:40] VITALS: BP 160/82
[2017-12-24] MEDS: FAMOTIDINE 20 MG TABLET PO SCH (08:08)
[2017-12-24] MEDS: CHOLECALCIFEROL (VITAMIN D3) 1,000 UNIT TABLET PO SCH (08:08)
[2017-12-24] MEDS: CLOPIDOGREL BISULFATE 75 MG TABLET PO SCH (08:08)
[2017-12-24] MEDS: busPIRone 10 MG TABLET. PO SCH (08:10)
[2017-12-24] MEDS: FUROSEMIDE 20 MG TABLET PO SCH (08:10)
[2017-12-24] MEDS: METOPROLOL TART IMMED RELEASE 50 MG TABLET PO SCH (08:11)
[2017-12-24] MEDS: QUEtiapine 25 MG TABLET. PO SCH (08:11)
[2017-12-24] MEDS: metFORMIN 500 MG TABLET PO SCH (08:12)
[2017-12-24] MEDS: DULoxetine HCL 60 MG CAPSULE.DR PO SCH (08:12)
[2017-12-24] MEDS: MULTIVITAMIN with MINERAL TABLET. PO SCH (08:12)
[2017-12-24] MEDS: CLINDAMYCIN HCL 150 MG CAPSULE PO SCH (08:12)
[2017-12-24] MEDS: CYANOCOBALAMIN (VITAMIN B-12) 1,000 MCG TABLET. PO SCH (08:12)
[2017-12-24] MEDS: LACTOBACILLUS RHAMNOSUS GG 1 CAPSULE. PO SCH (08:13)
[2017-12-24] MEDS: PANTOPRAZOLE 40 MG TABLET. PO SCH (08:13)
[2017-12-24] MEDS: INSULIN LISPRO 300 UNITS/3 ML INSULN.PEN. SQ SCH (08:17)
[2017-12-24 08:31] VITALS: BP 160/82
[2017-12-24] MEDS: FLUTICASONE 50MCG/NASAL SPRAY 16GM BOTTLE. NS SCH (08:31)
[2017-12-24] MEDS: LISINOPRIL 5 MG TABLET. PO SCH (08:31)
--- NOTE | 2017-12-24 09:14 | NUR ---
[facility] Social Work Discharge Planning Form Patient Name VALERIE RAI Admit Date: 12/04/17 DISCHARGE PLAN Discharge Dest[facility] Transportation: [facility] 12/24/17 @ 10:30 ([facility] - private pay by pt's dtr in law) DISCHARGE TO FACILITY Facility: [facility] Address: [address] [place] [address] Contact Name: AYAZ Nino PCP: at facility w/in 7-10 days of dc Psychiatrist: at facility w/in 7-10 days of dc
--- NOTE | 2017-12-24 10:02 | NUR ---
SW contacted pt's dtr in law and AYAZ Nino at faciltiy to confirm dc plans set for today at 10:30.
--- NOTE | 2017-12-24 10:36 | NUR ---
Nursing Note: Pt pleasant, compliant w/ medications, no report of pain.
--- NOTE | 2017-12-24 10:37 | NUR ---
Behavior Intervention Response and Plan: BIRP Note: Behavior: Assumed Care of patient, patient located in Dining Room at shift change. Patient exhibited the following behavior Calm, Disorganized, Compliant. Brief assessment on rounds of vital signs, medication needs, lab studies, and pain. Treatment plan problems dementia and fall risk. Intervention: Patient assessed and the following interventions initiated safety checks 15 Minute Checks Head to toe Assessment , Cognitive Assessment , Medications. Response: After interactions and interventions patient responded in the following manner, Calm , Disorganized ,Compliant. Continue to assess behaviors and condition will continue to monitor throughout the shift as needed. Patient educated on ADL's, and hand hygiene. Plan: Continue to monitor Master Treatment Plan for patient's progress toward short term goals of Decreased Agitation, Decreased Aggression, intermodal customer service goals to return to previous living setting vs placement. Continue to assess patient for changes in above assessment. Monitor for medication needs, pain, and safety concerns. Hourly rounding performed to ensure safe environment.
--- NOTE | 2017-12-24 10:45 | NUR ---
Transition Record was faxed to follow-up provider with the following elements: Reason for admission, procedures, tests, principal diagnosis, pending studies, patient instructions, 01/02 contact information for unit, phone number to obtain pending test results, plan for follow-up care, physician follow-up, advanced directive information, and medication list with dose, duration and instructions. This information was included in the following documents: History and physical, lab results, study results, progress notes, social work planning form, DC instruction form, patient visit summary, and medication reconciliation form. Date & time record faxed:12/24/17 0900 Record faxed to: [facility] [id number] Record discussed with/ report given to: Liza Hodge
--- NOTE | 2017-12-24 19:00 | PDOC ---
Exam Note: Zaid Note: Please also refer to the separate dictated note~for this date of service dictated separately.~Patient seen individually. Discussed the patient with Nursing staff reviewed the chart.~Reviewed interim history and current functioning. Reviewed vital signs,~Labs/ Radiology~and current medications noted below. Continue current treatment with the changes noted in the dictated addendum note Assessment: Vital Signs: Vital Signs Date Time Temp Pulse Resp B/P (MAP) Pulse Ox O2 Delivery O2 Flow Rate FiO2 12/24/17 08:31 74 160/82 12/24/17 06:40 96.6 17 98 12/23/17 16:46 Room Air I&O Intake and Output 12/24/17 07:00 Intake Total 960 ml Balance 960 ml Intake Oral 960 ml # Voids 1 Labs: Laboratory Tests Test 12/23/17 19:13 12/24/17 07:19 Glucose (Fingerstick) 101 mg/dL (70-99) H 124 mg/dL (70-99) H Current Medications: Meds: Current Medications Acetaminophen (Tylenol) 650 mg PRN Q6HRS PRN PO MILD PAIN / TEMP Last administered on 12/24/17at 05:50; Start 12/04/17 at 02:45; Stop 12/24/17 at 11:21 ; Status DC Multi-Ingredient Ointment (Analgesic [place]) 1 [place] PRN QID PRN TP MUSCLE PAIN; Start 12/04/17 at 02:45; Stop 12/24/17 at 11:21; Status DC Al Hydroxide/Mg Hydroxide (Mylanta Plus Xs) 15 ml PRN AFTMEALHC PRN PO DYSPEPSIA; Start 12/04/17 at 02:45; Stop 12/24/17 at 11:21; Status DC Magnesium Hydroxide (Milk Of Magnesia) 2,400 mg PRN QHS PRN PO CONSTIPATION; Start 12/04/17 at 02:45; Stop 12/24/17 at 11:21; Status DC Duloxetine HCl (Cymbalta) 60 mg DAILY PO Last administered on 12/24/17at 08:12; Start 12/04/17 at 09:00; Stop 12/24/17 at 11:21; Status DC Dextrose 12.5 gm PRN Q15MIN PRN IV SEE COMMENTS Last administered on 12/20/17at 21:19; Start 12/04/17 at 02:45; Stop 12/24/17 at 11:21; Status DC Vitamin D (Vitamin D3) 1,000 unit DAILY PO Last administered on 12/24/17at 08:08 ; Start 12/04/17 at 09:00; Stop 12/24/17 at 11:21; Status DC Clopidogrel Bisulfate (Plavix) 75 mg DAILY PO Last administered on 12/24/17at 08 :08; Start 12/04/17 at 09:00; Stop 12/24/17 at 11:21; Status DC Cyanocobalamin (Vitamin B-12) 1,000 mcg DAILY PO Last administered on at 08:12; Start 12/04/17 at 09:00; Stop 12/24/17 at 11:21; Status DC Furosemide (Lasix) 10 mg DAILY PO Last administered on 12/24/17at 08:10; Start 12/04/17 at 09:00; Stop 12/24/17 at 11:21; Status DC Insulin Glargine (Lantus) 10 units QHS SQ Last administered on 12/04/17at 20:00 ; Start 12/04/17 at 21:00; Stop 12/05/17 at 15:57; Status DC Insulin Human Lispro (HumaLOG) 5 units TIDWMEALS SQ Last administered on at 12:06; Start 12/04/17 at 08:00; Stop 12/05/17 at 15:57; Status DC Lisinopril (Prinivil) 5 mg DAILY PO Last administered on 12/24/17at 08:31; Start 12/04/17 at 09:00; Stop 12/24/17 at 11:21; Status DC Atorvastatin Calcium (Lipitor) 10 mg QHS PO Last administered on 12/23/17at 19: 39; Start 12/04/17 at 21:00; Stop 12/24/17 at 11:21; Status DC Docusate Sodium (Colace) 100 mg PRN DAILY PRN PO CONSTIPATION; Start 12/04/17 at 03:00; Stop 12/24/17 at 11:21; Status DC Famotidine (Pepcid) 20 mg DAILY PO Last administered on 12/24/17at 08:08; Start 12/04/17 at 09:00; Stop 12/24/17 at 11:21; Status DC Non-Formulary Medication (Famotidine/Ca Carb/Mag Hydrox (Tums Dual Action Tablet Chew)) 1,000 mg DAILY PO ; Start 12/04/17 at 09:00; Status UNV Fluticasone Propionate (Flonase) 2 spray DAILY NS Last administered on at 08:31; Start 12/04/17 at 09:00; Stop 12/24/17 at 11:21; Status DC Acetaminophen/ Hydrocodone Bitart (Lortab 5/325) 1 tab PRN Q6HRS PRN PO PAIN Last administered on 12/15/17at 14:16; Start 12/04/17 at 03:00; Stop 12/24/17 at 11:21; Status DC Lidocaine (Lidoderm) 1 patch PRN DAILY PRN TD PAIN; Start 12/04/17 at 09:00; Stop 12/24/17 at 11:21; Status DC Metformin HCl (Glucophage) 500 mg BIDWMEALS PO Last administered on 12/18/17at 10 :28; Start 12/04/17 at 08:00; Stop 12/18/17 at 16:49; Status DC Multivitamins/ Calcium (Thera-M Plus) 1 tab DAILY PO Last administered on at 08:12; Start 12/04/17 at 09:00; Stop 12/24/17 at 11:21; Status DC Non-Formulary Medication (Nebivolol Hcl (Bystolic)) 5 mg BID PO ; Start at 09:00; Stop 12/04/17 at 09:00; Status DC Pantoprazole Sodium (Protonix) 40 mg DAILYAC PO Last administered on 12/24/17at 08:13; Start 12/04/17 at 07:30; Stop 12/24/17 at 11:21; Status DC Artificial Tears (Artificial Tears) 1 drop PRN QID PRN OU DRY EYE; Start at 03:00; Stop 12/24/17 at 11:21; Status DC Metoprolol Tartrate (Lopressor) 50 mg BID PO Last administered on 12/24/17at 08: 11; Start 12/04/17 at 09:00; Stop 12/24/17 at 11:21; Status DC Insulin Human Lispro (HumaLOG) 9 units 1X ONCE SQ Last administered on at 12:24; Start 12/04/17 at 12:15; Stop 12/04/17 at 12:16; Status DC Insulin Glargine (Lantus) 15 units QHS SQ Last administered on 12/17/17at 20:14; Start 12/05/17 at 21:00; Stop 12/18/17 at 16:48; Status DC Insulin Human Lispro (HumaLOG) 7 units TIDWMEALS SQ Last administered on at 12:22; Start 12/05/17 at 17:00; Stop 12/18/17 at 16:49; Status DC Olanzapine (ZyPREXA ZYDIS) 2.5 mg PRN Q2HR PRN PO PSYCHOSIS Last administered on 12/19/17at 15:51; Start 12/05/17 at 18:15; Stop 12/24/17 at 11:21; Status DC Buspirone HCl (Buspar) 5 mg BID PO Last administered on 12/12/17at 20:41; Start 12/06/17 at 09:00; Stop 12/12/17 at 23:53; Status DC Quetiapine Fumarate (SEROquel) 12.5 mg DAILY@1500 PO Last administered on at 15:25; Start 12/08/17 at 15:00; Stop 12/10/17 at 15:00; Status DC Quetiapine Fumarate (SEROquel) 25 mg DAILY@1500 PO Last administered on at 15:09; Start 12/10/17 at 15:00; Stop 12/11/17 at 18:07; Status DC Quetiapine Fumarate (SEROquel) 37.5 mg DAILY@1500 PO Last administered on at 15:53; Start 12/12/17 at 15:00; Stop 12/14/17 at 18:47; Status DC Buspirone HCl (Buspar) 5 mg BID@0900,1300 PO Last administered on 12/13/17at 13: 17; Start 12/13/17 at 09:00; Stop 12/13/17 at 19:17; Status DC Buspirone HCl (Buspar) 5 mg TID PO Last administered on 12/15/17 14:16; Start 12/13/17 at 21:00; Stop 12/15/17 at 18:33; Status DC Quetiapine Fumarate (SEROquel) 50 mg DAILY@1500 PO Last administered on at 15:35; Start 12/15/17 at 15:00; Stop 12/24/17 at 11:21; Status DC Buspirone HCl (Buspar) 10 mg BID@0900,1700 PO Last administered on 12/24/17at 08 :10; Start 12/16/17 at 09:00; Stop 12/24/17 at 11:21; Status DC Insulin Human Lispro (HumaLOG) 12 units 1X ONCE SQ Last administered on at 11:36; Start 12/16/17 at 11:30; Stop 12/16/17 at 11:32; Status DC Quetiapine Fumarate (SEROquel) 25 mg NOON PO Last administered on 12/22/17at 12: 30; Start 12/17/17 at 12:00; Stop 12/24/17 at 11:21; Status DC Quetiapine Fumarate (SEROquel) 12.5 mg BID PO Last administered on 12/24/17at 08 :11; Start 12/17/17 at 21:00; Stop 12/24/17 at 11:21; Status DC Clindamycin HCl (Cleocin) 450 mg TID PO Last administered on 12/24/17at 08:12; Start 12/17/17 at 21:00; Stop 12/24/17 at 11:21; Status DC Lactobacillus Rhamnosus (Culturelle) 1 cap BID PO Last administered on at 08:13; Start 12/17/17 at 21:00; Stop 12/24/17 at 11:21; Status DC Insulin Glargine (Lantus) 20 units QHS SQ Last administered on 12/23/17at 21:00 ; Start 12/18/17 at 21:00; Stop 12/24/17 at 11:21; Status DC Insulin Human Lispro (HumaLOG) 7 units DAILYWBKFT SQ Last administered on at 08:17; Start 12/19/17 at 08:00; Stop 12/24/17 at 11:21; Status DC Metformin HCl (Glucophage) 1,000 mg BIDWMEALS PO Last administered on at 08:12; Start 12/18/17 at 17:00; Stop 12/24/17 at 11:21; Status DC Insulin Human Lispro (HumaLOG) 10 units DAILYWLUN SQ Last administered on at 12:23; Start 12/19/17 at 12:00; Stop 12/24/17 at 11:21; Status DC Insulin Human Lispro (HumaLOG) 12 units DAILYWSUP SQ Last administered on at 18:09; Start 12/18/17 at 17:00; Stop 12/24/17 at 11:21; Status DC Active Scripts Active Reported Hydrocodone-Apap 5-325 (Hydrocodone Bit/Acetaminophen) 1 Each Tablet 1 Tab PO PRN Q6HRS PRN Buspirone Hcl 10 Mg Tablet 10 Mg PO [id number] Seroquel (Quetiapine Fumarate) 25 Mg Tablet 12.5 Mg PO [id number] Seroquel (Quetiapine Fumarate) 25 Mg Tablet 25 Mg PO DAILYNOON Seroquel (Quetiapine Fumarate) 50 Mg Tablet 50 Mg PO [id number] Zyprexa Zydis (Olanzapine) 5 Mg Tab.rapdis 2.5 Mg PO PRN Q2HR PRN MDD 10 mg/ 24 hrs Analgesic [place] (Methyl Salicylate/Menthol) 28 Gm Oint...g. 1 [place] TP PRN QID PRN Culturelle (Lactobacillus Rhamnosus Gg) 1 Each Cap.sprink 1 Each PO BID 4 Days Humalog (Insulin Lispro) 100 Unit/1 Ml [place] 12 Unit SQ [id number] Humalog (Insulin Lispro) 100 Unit/1 Ml [place] 10 Unit SQ DAILYWLUN Clindamycin Hcl 150 Mg Capsule 450 Mg PO TID 3 Days Vitamin D3 (Cholecalciferol (Vitamin D3)) 1,000 Unit Tablet 1,000 Unit PO DAILY Clopidogrel (Clopidogrel Bisulfate) 75 Mg Tablet 75 Mg PO DAILY Flonase Sensimist (Fluticasone Furoate) 9.9 Ml [place].susp 2 Sprays NS DAILY Docusate Sodium 250 Mg Capsule 250 Mg PO PRN DAILY PRN Tums Dual Action Tablet Chew (Famotidine/Ca Carb/Mag Hydrox) 1 Each Tab.chew 1, 000 Mg PO DAILY Vitamin B-12 (Cyanocobalamin (Vitamin B-12)) 1,000 Mcg Tablet 1,000 Mcg PO DAILY Multivitamins (Multivitamin) 1 Each Tablet 1 Tab PO DAILY Furosemide 20 Mg Tablet 10 Mg PO DAILY Bystolic (Nebivolol Hcl) 5 Mg Tablet 5 Mg PO BID Zestril (Lisinopril) 5 Mg Tablet 5 Mg PO DAILY Acetaminophen 325 Mg Tablet 650 Mg PO PRN Q8HRS PRN Lidocaine 1 Each Adh..patch 1 Patch TP PRN DAILY PRN [place] 5-325 Tablet (Hydrocodone Bit/Acetaminophen) 1 Each Tablet 1 Tab PO PRN Q6HRS PRN Lipitor (Atorvastatin Calcium) 10 Mg Tablet 10 Mg PO QHS Lantus Solostar (Insulin Glargine,Hum.rec.anlog) 100 Unit/1 Ml Insuln.pen 20 Unit SQ QHS Pepcid (Famotidine) 20 Mg Tablet 20 Mg PO DAILY Milk Of Magnesia (Magnesium Hydroxide) 2,400 Mg/10 Ml Oral.susp 10 Ml PO PRN DAILY PRN Systane 0.3-0.4% Eye Drops (Propylene Glycol/Peg 400) 15 Ml Drops 1 Drop EACHEYE PRN QID PRN Metformin Hcl 500 Mg Tablet 1,000 Mg PO BIDWMEALS Cymbalta (Duloxetine Hcl) 60 Mg Capsule.dr 60 Mg PO DAILY Humalog (Insulin Lispro) 100 Unit/1 Ml Insuln.pen 7 Unit SQ DAILYWBKFT I have reviewed the current psychotropics carefully including drug interactions. Risk benefit ratio favors no change other than as noted in my dictated progress note. Diagnosis: Problems: (1) Impulse control disorder (2) Dementia, vascular, with depression (3) Dementia, vascular, with delusions (4) Dementia in Alzheimer's disease with depression (5) Dementia in Alzheimer's disease with delusions (6) Anxiety disorder DANE CHERRY MD Dec 24, 2017 19:00
--- NOTE | 2017-12-25 07:04 | PN ---
DATE: 12/22/2017 PSYCHIATRIC PROGRESS NOTE This is a late entry for 12/22/2017, covers elements not covered in my initial note. SUBJECTIVE: I met with the patient in the evening. The patient slept 6 hours. She was cooperative with changing her bandages and with BP check. REVIEW OF SYSTEMS: Ambulation impaired, in wheelchair. No CV, , pulmonary, eye, ENT system symptoms on review. Reliability poor. MENTAL STATUS EXAM: Oriented to herself. Insight, judgment, recent and remote memory, attention, concentration, fund of knowledge poor, consistent with her diagnosis mentioned in my initial note. PLAN: Continue current psychotropics. Transition to long term in the next 2 or 3 days. DANE CHERRY MD DR: WILLIAM/erica JOB#: [id number] / [id number]
--- NOTE | 2017-12-25 07:05 | PN ---
DATE: 12/23/2017 PSYCHIATRIC PROGRESS NOTE This is a late entry for 12/23/2017, covers elements not covered in my initial note. SUBJECTIVE: I met with the patient individually and staffed at a treatment team meeting with the entire team in the morning. Overall, the patient has been confused, but pleasant, not agitated, aggressive, less paranoid. REVIEW OF SYSTEMS: Ambulation impaired. No CV, , pulmonary, eye, ENT system symptoms on review. Reliability poor. MENTAL STATUS EXAM: Oriented to herself. Insight, judgment, recent and remote memory, attention, concentration, fund of knowledge poor, consistent with her diagnosis mentioned in my initial note. PLAN: Continue current psychotropics. Discharge back to correction on 12/24/2017. MAN Sheila CHERRY MD DR: WILLIAM/erica JOB#: [id number] / [id number]
--- NOTE | 2017-12-26 23:54 | DS ---
DATE OF DISCHARGE: 12/24/2017 DISCHARGE SUMMARY/PSYCHIATRIC PROGRESS NOTE This is a late entry 12/24/2017, covers elements not covered in my initial note for 12/24/2017. REASON FOR ADMISSION: Please refer to the admission history for details. Briefly, the patient is an 87-year-old female, referred to us from [facility] after she presented from the [facility] on account of increasingly combative behavior and hallucinating, seeing her , paranoid, thinking staff are out to get her. She had failed outpatient psychiatric interventions with Dr. Choudhary and referred for inpatient psychiatric stabilization. SIGNIFICANT FINDING AND CLINICAL COURSE: Following admission, the patient was seen daily individually by myself from a psychiatric standpoint, medical followup per Dr. Granados/Dr. Moore. The patient remained extremely confused, paranoid, irritable at times. Adjustments were made in her psychotropics. She seemed to respond to a combination of Cymbalta 60 mg a day, Zyprexa p.r.n., BuSpar 10 mg twice a day, Seroquel 50 mg at 1500, 12.5 mg 25 mg at noon. Gradually mood appeared to improve. She was pleasant, verbal, certainly confused. REVIEW OF SYSTEMS: Prior to discharge 12/24/2017; ambulation impaired, in wheelchair. No CV, , pulmonary, eye, ENT system symptoms on review. Reliability poor. MENTAL STATUS EXAM: Oriented to herself. Insight, judgment, recent and remote memory, attention, concentration, fund of knowledge poor, consistent with her diagnoses. CONDITION AT DISCHARGE: Improved. FINAL DIAGNOSES: Major neurocognitive disorder, Alzheimer, vascular with delusion, depression, behavioral disturbance; anxiety disorder, unspecified; impulse control disorder, unspecified. Rest unchanged from admission. DISCHARGE MEDICATIONS: Please refer to the . DISCHARGE INSTRUCTIONS: [facility]. Time for discharge day management greater than 30 minutes. DANE CHERRY MD DR: WILLIAM/erica JOB#: [id number] / [id number]
== END 2017-12-24 10:45 | disposition home or self-care (01) | DRG 56 ==
LOC: GEROPSY 02:10 → UNDODISIN 12:37 → GEROPSY 18:10
PROVIDERS: ADMIT Psychiatry & Neurology Psychiatry; ATTEND Psychiatry & Neurology Psychiatry
DX: G30.9 Alzheimer's disease, unspecified (principal); E43 Unspecified severe protein-calorie malnutrition; F02.81 Dementia in other diseases classified elsewhere, unspecified severity, with behavioral disturbance; F01.51 Vascular dementia, unspecified severity, with behavioral disturbance; F32.3 Major depressive disorder, single episode, severe with psychotic features; E78.5 Hyperlipidemia, unspecified; Z96.659 Presence of unspecified artificial knee joint; Z66 Do not resuscitate; F41.9 Anxiety disorder, unspecified; F63.9 Impulse disorder, unspecified; I10 Essential (primary) hypertension; E11.9 Type 2 diabetes mellitus without complications; Z88.0 Allergy status to penicillin; Z88.8 Allergy status to other drugs, medicaments and biological substances; Z88.1 Allergy status to other antibiotic agents; Z91.041 Radiographic dye allergy status; Z79.899 Other long term (current) drug therapy; Z91.81 History of falling; Z90.710 Acquired absence of both cervix and uterus; Z86.73 Personal history of transient ischemic attack (TIA), and cerebral infarction without residual deficits; Z68.28 Body mass index [BMI] 28.0-28.9, adult; Z85.72 Personal history of non-Hodgkin lymphomas
CPT/HCPCS: 36415; 70450; 80048; 80053; 80061; 81001; 82306; 82607; 82947; 83036; 83540; 83550; 83735; 84436; 84443; 84480; 85025; 86593; 93005; J1815; 97110; 97116; 97530; 97535

== ENCOUNTER 2017-12-04 12:42 | Emergency (ER) | payer MEDICARE, OTHER ==
[~2017-12-04] VITALS: Ht 167.6 cm; Wt 80.3 kg
[~2017-12-04 12:42] MED LIST: ACET325T21 PO; ATOR10TA PO; CHOL10003 PO; CLOP75TA PO; CYAN10005 PO; DOCU250C8 PO; DULO60CA6 PO; FAMO-63 PO; FAMO1TAB3 PO; FLUT9.9S16 NS; FURO20TA3 PO; HYDR-971 PO; INSU100I11 SQ; INSU100I13 SQ; LIDO700A39 TP; LISI-376 PO; MAGN2400 PO; METF500T5 PO; MULT1TAB52 PO; NEBI5TAB2 PO; PANT40TA5 PO; PROP15DR40 EACHEYE
[2017-12-04 12:43] VITALS: BP 172/83
[2017-12-04] MEDS ORDERED: PROCHLORPERAZINE 10 MG/2 ML VIAL. ONE (12:58)
[2017-12-04 13:16] LABS: BASO % 0 % (0-3); EOS % 0 % (0-3); HEMATOCRIT 36.2 % (36.0-47.0); HEMOGLOBIN 12.1 g/dL (12.0-15.5); LYMPH # 1.8 x10^3/uL (1.0-4.8); LYMPH % 21 % (24-48); MEAN CORPUSCULAR HEMOGLOBIN 33 pg (25-35); MEAN CORPUSCULAR HGB CONC 34 g/dL (31-37); MEAN CORPUSCULAR VOLUME 98 fL (79-100); MONO # 0.4 x10^3/uL (0.0-1.1); MONO % 5 % (0-9); NEUT # 6.4 x10^3uL (1.8-7.7); NEUT % 74 % (31-73); PLATELET COUNT 206 x10^3/uL (140-400); RED BLOOD COUNT 3.68 x10^6/uL (3.50-5.40); RED CELL DISTRIBUTION WIDTH 14.2 % (11.5-14.5); WHITE BLOOD COUNT 8.6 x10^3/uL (4.0-11.0)
[2017-12-04 13:24] LABS: ALBUMIN 2.9 g/dL (3.4-5.0); ALBUMIN/GLOBULIN RATIO 0.7 (1.0-1.7); CALCIUM 8.6 mg/dL (8.5-10.1); CREATININE 1.5 mg/dL (0.6-1.0); POTASSIUM 3.9 mmol/L (3.5-5.1); TOTAL BILIRUBIN 0.3 mg/dL (0.2-1.0); TOTAL PROTEIN 6.8 g/dL (6.4-8.2)
--- NOTE | 2017-12-04 13:44 | RAD ---
CT HEAD WO CONTRAST Date: 12/04/2017 1:11 PM Clinical Indication: fell today Comparison: None. Technique: 5 mm axial tomographic images were obtained of the head without contrast. These were viewed on brain and bone windows. Findings: Mild generalized cerebral and cerebellar volume loss. Mild nonspecific periventricular hypoattenuation, most commonly seen with chronic small vessel ischemic disease. Small right basal ganglia remote lacunar type infarct. No intra- or extra-axial mass or fluid collection. No acute hemorrhage. The ventricles are normal in size, shape, and morphology. The barros-white matter junction is normal. The basilar cisterns are patent. Left parieto-occipital scalp soft tissue swelling and subcutaneous air. Right parietal scalp small hematoma and skin patrick. Chronic appearing right maxillary sinusitis.. The visualized portions of the orbits and globes are normal. The mastoid air cells are clear. No aggressive osseous lesion or fracture. Impression: 1. No acute intracranial process. 2. Mild cerebral volume loss. Mild chronic small vessel ischemic disease. Small right basal ganglial remote lacunar type infarct. 3. Left parieto-occipital scalp soft tissue swelling and subcutaneous air. Right parietal scalp small hematoma and skin patrick. 4. Chronic appearing right maxillary sinusitis. PQRS Compliance Statement: One or more of the following individualized dose reduction techniques were utilized for this examination: 1. Automated exposure control 2. Adjustment of the mA and/or kV according to patient size 3. Use of iterative reconstruction technique Electronically signed by: Henry Logan MD (12/04/2017 1:41 PM) [facility]
--- NOTE | 2017-12-04 13:57 | PHYS DOC ---
Adult General Chief Complaint Chief Complaint: MECHANICAL FALL HPI HPI Patient is an 87-year-old female who presents from the [facility] health unit of the hospital. She was reported to have fallen and hit the back of her head. The patient has been minimally verbal since that time. Her daughter who is with her mention some garbled speech earlier today that she felt was new. The patient does answer questions occasionally with appropriate words. She is moving all extremities. She is complaining of posterior head pain. Review of Systems Review of Systems Review of systems is limited due to minimal verbal responses[] Eyes: Denies change in visual acuity, redness, or eye pain [] HENT: Head pain[] Respiratory: Denies shortness of breath [] Cardiovascular: No additional information not addressed in HPI [] GI: Denies abdominal pain, has nausea [] Neurologic: headache Current Medications Current Medications Current Medications Medications (Trade) Dose Ordered Sig/Dereck Start Time Stop Time Status Last Admin Dose Admin Prochlorperazine Edisylate (Compazine) 10 mg STK-MED ONCE 12/04/17 12:58 12/04/17 12:59 DC Allergies Allergies Allergies Coded Allergies Type Severity Reaction Last Updated Verified Iodinated Contrast- Oral and IV Dye Allergy Severe 12/04/17 Yes Penicillins Allergy Intermediate 12/04/17 Yes amoxicillin Allergy Intermediate 12/04/17 Yes clavulanic acid Allergy Intermediate 12/04/17 Yes coconut oil Allergy Intermediate 12/04/17 Yes propranolol Allergy Intermediate 12/04/17 Yes Physical Exam Physical Exam Constitutional: Well developed, well nourished, no acute distress, non-toxic appearance. [] HENT: Normocephalic, atraumatic, bilateral external ears normal, oropharynx moist, no oral exudates, nose normal. [] Eyes: PERRLA, EOMI, conjunctiva normal, no discharge. [] Neck: no tenderness, supple, no stridor. [] Cardiovascular:Heart rate regular rhythm, no murmur [] Lungs & Thorax: Bilateral breath sounds clear to auscultation [] Abdomen: Bowel sounds normal, soft, no tenderness. [] Skin: 2cm laceration posterior left side of scalp. patrick on posterior right side of scalp [] Back: No tenderness[] Extremities: No tenderness, no cyanosis, no clubbing[] Neurologic: minimal speech, otherwise no focal deficits noted. [] Psychologic: tearful [] Current Patient Data Lab Results Laboratory Tests Test 12/04/17 12:50 White Blood Count 8.6 x10^3/uL (4.0-11.0) Red Blood Count 3.68 x10^6/uL (3.50-5.40) Hemoglobin 12.1 g/dL (12.0-15.5) Hematocrit 36.2 % (36.0-47.0) Mean Corpuscular Volume 98 fL (79-100) Mean Corpuscular Hemoglobin 33 pg (25-35) Mean Corpuscular Hemoglobin Concent 34 g/dL (31-37) Red Cell Distribution Width 14.2 % (11.5-14.5) Platelet Count 206 x10^3/uL (140-400) Neutrophils (%) (Auto) 74 % (31-73) H Lymphocytes (%) (Auto) 21 % (24-48) L Monocytes (%) (Auto) 5 % (0-9) Eosinophils (%) (Auto) 0 % (0-3) Basophils (%) (Auto) 0 % (0-3) Neutrophils # (Auto) 6.4 x10^3uL (1.8-7.7) Lymphocytes # (Auto) 1.8 x10^3/uL (1.0-4.8) Monocytes # (Auto) 0.4 x10^3/uL (0.0-1.1) Eosinophils # (Auto) 0.0 x10^3/uL (0.0-0.7) Basophils # (Auto) 0.0 x10^3/uL (0.0-0.2) Sodium Level 141 mmol/L (136-145) Potassium Level 3.9 mmol/L (3.5-5.1) Chloride Level 102 mmol/L (98-107) Carbon Dioxide Level 30 mmol/L (21-32) Anion Gap 9 (6-14) Blood Urea Nitrogen 22 mg/dL (7-20) H Creatinine 1.5 mg/dL (0.6-1.0) H Estimated GFR (Cockcroft-Gault) 33.0 BUN/Creatinine Ratio 15 (6-20) Glucose Level 394 mg/dL (70-99) H Calcium Level 8.6 mg/dL (8.5-10.1) Total Bilirubin 0.3 mg/dL (0.2-1.0) Aspartate Amino Transferase (AST) 27 U/L (15-37) Alanine Aminotransferase (ALT) 20 U/L (14-59) Alkaline Phosphatase 89 U/L (46-116) Total Protein 6.8 g/dL (6.4-8.2) Albumin 2.9 g/dL (3.4-5.0) L Albumin/Globulin Ratio 0.7 (1.0-1.7) L EKG EKG [] Radiology/Procedures Radiology/Procedures CT HEAD WO CONTRAST Date: 12/04/2017 1:11 PM Clinical Indication: fell today Comparison: None. Technique: 5 mm axial tomographic images were obtained of the head without contrast. These were viewed on brain and bone windows. Findings: Mild generalized cerebral and cerebellar volume loss. Mild nonspecific periventricular hypoattenuation, most commonly seen with chronic small vessel ischemic disease. Small right basal ganglia remote lacunar type infarct. No intra- or extra-axial mass or fluid collection. No acute hemorrhage. The ventricles are normal in size, shape, and morphology. The barros-white matter junction is normal. The basilar cisterns are patent. Left parieto-occipital scalp soft tissue swelling and subcutaneous air. Right parietal scalp small hematoma and skin patrick. Chronic appearing right maxillary sinusitis.. The visualized portions of the orbits and globes are normal. The mastoid air cells are clear. No aggressive osseous lesion or fracture. Impression: 1. No acute intracranial process. 2. Mild cerebral volume loss. Mild chronic small vessel ischemic disease. Small right basal ganglial remote lacunar type infarct. 3. Left parieto-occipital scalp soft tissue swelling and subcutaneous air. Right parietal scalp small hematoma and skin patrick. 4. Chronic appearing right maxillary sinusitis. PQRS Compliance Statement: One or more of the following individualized dose reduction techniques were utilized for this examination: 1. Automated exposure control 2. Adjustment of the mA and/or kV according to patient size 3. Use of iterative reconstruction technique Electronically signed by: Henry Logan MD (12/04/2017 1:41 PM) [facility][] Course & Med Decision Making Course & Med Decision Making The patient's head CT is negative for acute findings. Her glucose is elevated at 394. Her anion gap is normal. Her creatinine is 1.5 and baseline appears to be 1.2-1.3. She has a slightly elevated BUN/creatinine. The patient became much more alert and responsive to this. I believe she was emotional from the pain of falling. She is able to answer my questions and is speaking normally. She is following all directions. Patient's laceration was cleaned with chlorhexidine solution and explored to its. There were no foreign objects found. I was able to repair the laceration with 3 patrick. The patient tolerated the procedure well. She is able to return to her hospital room at this time.[] Dragon Disclaimer Dragon Disclaimer This electronic medical record was generated, in whole or in part, using a voice recognition dictation system. Departure Departure: Referrals: PCP,UNKNOWN (PCP) PAMELA HORVATH DO December 04, 2017 13:57
[2017-12-04] MEDS ORDERED: IV NORMAL SALINE 1,000ML 1,000 ML IV ONE (15:00)
--- NOTE | 2017-12-04 16:32 | RAD ---
Three-view right shoulder dated 12/04/2017. No comparison available. CLINICAL INDICATION: Pain after fall. FINDINGS: 2 views of the right shoulder show normal bony alignment. No displaced fracture. No acute osseous or articular abnormality. Mild hypertrophic change of the AC joint. IMPRESSION: No acute radiographic abnormality. Electronically signed by: Chapito Garza MD (12/04/2017 4:29 PM) [facility] [place]
== END 2017-12-04 15:30 | disposition home or self-care (01) ==
LOC: ER 12:42
DX: S01.01XA Laceration without foreign body of scalp, initial encounter (principal); M25.511 Pain in right shoulder; Z88.1 Allergy status to other antibiotic agents; Z91.041 Radiographic dye allergy status; Z88.0 Allergy status to penicillin; Z91.048 Other nonmedicinal substance allergy status; W18.09XA Striking against other object with subsequent fall, initial encounter; Y93.89 Activity, other specified; Y99.8 Other external cause status; Y92.89 Other specified places as the place of occurrence of the external cause
CPT/HCPCS: 12001; 36415; 70450; 73030; 80053; 85025; 99285-25; J7030